=== PATIENT | female | born 1960 | race Caucasian/White ===

== ENCOUNTER 2023-02-15 01:27 | Emergency (ER) | payer MEDICARE, SELFPAY ==
[2023-02-15] VITALS (13 sets, daily range): BP systolic 105–129; BP diastolic 52–90; PULSE 50–57; RESP 16–18; TEMP 36.2; O2SAT 95–98; BMI 26.8
--- NOTE | 2023-02-15 01:43 | ED_ITS ---
HPI - Arrhythmia/Palpitations General Time Seen by Provider: 01:43 Date Seen: 02/15/23 Chief Complaint: Arrhythmia/Palpitations Stated Complaint: Heart is beating fast and hard. Time Seen by Provider: 02/15/23 01:42 Source: patient, RN notes reviewed and old records reviewed Mode of arrival: ambulatory Limitations: no limitations History of Present Illness HPI narrative: 63-year-old female with history of COPD, coronary disease with stents and prior bypass who presents today with feeling like her heart is beating hard. She has had nausea decreased oral intake for the last week or so, tonight feels like her heart is beating hard with little bit of accompanying lightheadedness. She denies chest pain or shortness of breath. Denies vomiting or diarrhea. Notes her lisinopril was decreased recently. Related Data Home Medications Medication Instructions Recorded Confirmed alendronate 70 mg tablet 70 mg PO QWEEK 02/15/23 02/15/23 aspirin 81 mg tablet,delayed 81 mg PO DAILY 02/15/23 02/15/23 release (Adult Aspirin Regimen) atorvastatin 40 mg tablet 40 mg PO DAILY 02/15/23 02/15/23 bupropion HCl 150 mg 24 hr tablet, 150 mg PO DAILY 02/15/23 02/15/23 extended release clonazepam 1 mg tablet 1 mg PO DAILY 02/15/23 02/15/23 lisinopril 2.5 mg tablet 2.5 mg PO DAILY 02/15/23 02/15/23 magnesium oxide-magnesium amino cap PO 02/15/23 acid chelate 300 mg capsule (Magnesium (oxide/AA chelate)) metoprolol succinate 25 mg 25 mg PO DAILY 02/15/23 02/15/23 tablet,extended release 24 hr mirtazapine 45 mg tablet 45 mg PO DAILY 02/15/23 02/15/23 psyllium (Hydrocil Instant oral 1 packet PO DAILY 02/15/23 02/15/23 packet) quetiapine 50 mg tablet 50 mg PO DAILY 02/15/23 02/15/23 ticagrelor 90 mg tablet (Brilinta) 90 mg PO Q12H 02/15/23 02/15/23 ziprasidone HCl 40 mg capsule 40 mg PO BID 02/15/23 02/15/23 (Geodon) Allergies Allergy/AdvReac Type Severity Reaction Status Date / Time Cjdexhr-IGH-AhA Reductase Allergy Verified 02/15/23 02:16 Inhibitor oxycarbazine Allergy Uncoded 02/15/23 02:16 PFSH PFSH Social History Smoking Status: Never smoker Do you use any of these nicotine containing products: None How often do you have a drink containing alcohol: never AUDIT-C Alcohol total score: 0 Non-prescribed substance use: denies use Exam Narrative: Exam Narrative: General: Well-developed and well-nourished, no acute distress Head: Atraumatic and normocephalic Eyes: Pupils are equal reactive, extraocular motions intact, conjunctiva clear ENT: External nose and ears are normal, posterior pharynx without erythema or exudate Neck: No midline cervical tenderness, full spontaneous range of motion the neck, trachea midline, no adenopathy Heart: Regular rate and rhythm no murmurs or thrills Lungs: Clear to auscultation bilaterally without wheezes or crackles Abdomen: Soft, nontender, nondistended with active bowel sounds Musculoskeletal: No tenderness, deformity, or edema Neurologic: Awake, alert, and oriented x3, no gross focal neurologic deficits, cranial nerves intact as tested Psych: Mood and affect are appropriate Skin: No rashes Const: Vital Signs, click to edit/add: Vital Signs - 24 hr 02/15/23 01:34 02/15/23 02:16 02/15/23 02:32 Temperature 97.1 F L Pulse Rate 54 L 55 L Pulse Rate [Pulse Oximeter] 55 L Respiratory Rate 18 16 16 Blood Pressure 111/61 112/64 Blood Pressure [Le ft Upper Arm] 126/90 H Pulse Oximetry 96 97 95 Oxygen Delivery Me thod Room Air 02/15/23 02:47 02/15/23 03:02 02/15/23 03:17 Temperature Pulse Rate 57 L 51 L 51 L Pulse Rate [Pulse Oximeter] Respiratory Rate 18 18 16 Blood Pressure 120/63 105/52 L 118/70 Blood Pressure [Le ft Upper Arm] Pulse Oximetry 95 96 95 Oxygen Delivery Me thod 02/15/23 03:32 02/15/23 03:47 02/15/23 04:01 Temperature Pulse Rate 54 L 51 L 50 L Pulse Rate [Pulse Oximeter] Respiratory Rate 16 16 16 Blood Pressure 121/64 122/60 124/61 Blood Pressure [Le ft Upper Arm] Pulse Oximetry 98 98 96 Oxygen Delivery Me thod 02/15/23 04:17 02/15/23 04:32 Temperature Pulse Rate 51 L 52 L Pulse Rate [Pulse Oximeter] Respiratory Rate 16 16 Blood Pressure 125/69 128/60 Blood Pressure [Le ft Upper Arm] Pulse Oximetry 96 96 Oxygen Delivery Me thod Course Course ED Course: Patient seen examined, prior records reviewed. Patient presents today with cessation of heart being hard. On exam here, vital a stable with heart rate in the 50s. EKG with diffuse ST changes, no acute ischemic changes and no prior. Labs and fluids are ordered. Reevaluation(s) Time of Reevaluation #1: 02:43 Reevaluation #1: Chest x-ray independently interpreted by me negative for acute findings. Time of Reevaluation #2: 04:28 Reevaluation #2: Labs independently interpreted by me with normal CBC, reassuring basic panel, negative BNP. Troponin is pending. If this is normal, patient can be discharged with outpatient follow-up. Consider decreasing metoprolol as patient is little bradycardic and this may be causing her sensation of her heart beating hard. Vital Signs Vital signs: Initial Vital Signs Temperature 97.1 F L 02/15/23 01:34 Temperature Source Temporal Artery Scan 02/15/23 01:34 Pulse Rate 55 L 02/15/23 01:34 Respiratory Rate 18 02/15/23 01:34 Blood Pressure 126/90 H 02/15/23 01:34 Blood Pressure Mean 102 02/15/23 01:34 Blood Pressure Position Supine 02/15/23 01:34 Pulse Oximetry 96 02/15/23 01:34 Oxygen Delivery Method Room Air 02/15/23 01:34 Vital Signs Temperature 97.1 F L 02/15/23 01:34 Pulse Rate 55 L 02/15/23 01:34 Respiratory Rate 18 02/15/23 01:34 Blood Pressure 126/90 H 02/15/23 01:34 Pulse Oximetry 96 02/15/23 01:34 Oxygen Delivery Method Room Air 02/15/23 01:34 Temperature 97.1 F L 02/15/23 01:34 Pulse Rate 52 L 02/15/23 04:32 Respiratory Rate 16 02/15/23 04:32 Blood Pressure 128/60 02/15/23 04:32 Pulse Oximetry 96 02/15/23 04:32 Oxygen Delivery Method Room Air 02/15/23 01:34 MDM - Arrhythmia/Palpitations Lab Data Labs: Lab Results 02/15/23 Range/Units 03:06 WBC 8.53 (4.50-11.00) K/uL RBC 4.64 (4.00-5.20) m/uL Hgb 13.3 (12.0-16.0) gm/dL Hct 42.1 (33.0-51.0) % MCV 91 (80-100) fL MCH 29 (26-34) pg MCHC 32 (32-36) gm/dL RDW Coeff of Jerome 14.5 (11.5-15.5) % Plt Count 305 (140-440) K/uL Neut % (Auto) 63.2 (42.0-72.0) % Lymph % (Auto) 25.6 (20-44) % Rowan % (Auto) 9.3 (0.0-11.0) % Eos % (Auto) 1.5 (0.0-7.0) % Baso % (Auto) 0.2 (0.0-3.0) % Neut # (Auto) 5.39 (1.7-7.0) K/uL Lymph # (Auto) 2.18 (0.90-2.90) K/uL Rowan # (Auto) 0.80 (0.00-0.90) K/UL Eos # (Auto) 0.13 (0.00-0.50) K/uL Baso # (Auto) 0.02 (0.00-0.30) K/uL Abs Immat Gran (auto) 0.02 (0.00-0.30) K/uL Imm/Tot Granulo (auto) 0.2 % Sodium 140 (135-149) mmol/L Potassium 4.1 (3.6-5.1) mmol/L Chloride 104 (96-114) mmol/L Carbon Dioxide 24 (20-32) mmol/L Anion Gap 12 (7-15) mEq/L BUN 18 (7-30) mg/dL Creatinine 1.2 (0.5-1.5) mg/dL Estimated Creat Clear 44.92 Estimated GFR 51 ml/min Glucose 96 (60-115) mg/dL Calcium 9.2 (8.4-10.6) mg/dL Magnesium 2.6 (1.5-2.6) mg/dL Troponin I < 0.01 L (0.01-0.04) ng/mL NT-Pro-B Natriuret Pep 522 pg/mL ECG Data Attestation: I personally reviewed and interpreted this ECG as follows: ECG interpretation date: 02/15/23 ECG interpretation time: 01:59 Prior ECG tracings: not available for review Interpretation: Performed at 1:40 a.m. demonstrates sinus rhythm rate 55, ST depression in II, AVF with T-wave inversions and slight depressions in V3 through V6, QTC 411. No prior for comparison. Discharge Plan Discharge Clinical Impression: Palpitations, Nausea Patient Disposition: Home, Self-Care Condition: Stable Instructions: Heart Palpitations (DC) Activity Level: Activity as Tolerated Discharge Diet: Regular Prescriptions: No Action lisinopril 2.5 mg tablet 2.5 mg PO DAILY atorvastatin 40 mg tablet 40 mg PO DAILY alendronate 70 mg tablet 70 mg PO QWEEK aspirin [Adult Aspirin Regimen] 81 mg tablet,delayed release (DR/EC) 81 mg PO DAILY Magnesium (oxide/AA chelate) 300 mg capsule PO metoprolol succinate 25 mg tablet extended release 24 hr 25 mg PO DAILY bupropion HCl 150 mg tablet extended release 24 hr 150 mg PO DAILY clonazepam 1 mg tablet 1 mg PO DAILY mirtazapine 45 mg tablet 45 mg PO DAILY quetiapine 50 mg tablet 50 mg PO DAILY ziprasidone HCl [Geodon] 40 mg capsule 40 mg PO BID Rx Instructions: give with food (meal/snack) Brilinta 90 mg tablet 90 mg PO Q12H Hydrocil Instant Packet 1 packet PO DAILY Rx Instructions: mix into at least 8 oz of water or juice before administering Follow Up/Referrals: Provider,Not a Local [Primary Care Provider] - Stand Alone Forms: [employer] Info Instructions
--- NOTE | 2023-02-15 01:55 | CRLHL7_ITS ---
For Patients: As a result of the Cures Act, medical imaging exams and procedure reports are released immediately into your electronic medical record. You may view this report before your referring provider. If you have questions, please contact your health care provider. INDICATION: Chest pain. TECHNIQUE: Chest 1 view. COMPARISON: None. FINDINGS: Heart and mediastinum: Prior CABG. No acute findings. Lungs and pleural spaces: The patient is rotated rightward. Clear lungs and pleural spaces. Bones and soft tissues: Chronic appearing contiguous fracture deformities the right 6th and 7th lateral ribs.. IMPRESSION: No acute cardiopulmonary process. Dictated by Raffaele Rodriguez MD @ 02/15/2023 4:29:03 AM (Electronically Signed)
[2023-02-15] MEDS: 0.9 % SODIUM CHLORIDE 1000 ml 1,000 ML IV (03:13)
[2023-02-15 03:33] LABS: Basophils Absolute Auto 0.02 K/uL (0.00-0.30); Basophils Percent Auto 0.2 % (0.0-3.0); Eosinophils Absolute Auto 0.13 K/uL (0.00-0.50); Eosinophils Percent Auto 1.5 % (0.0-7.0); Hematocrit 42.1 % (33.0-51.0); Hemoglobin* 13.3 gm/dL (12.0-16.0); Immature Granulocytes Abs Auto 0.02 K/uL (0.00-0.30); Immature Granulocytes Pct Auto 0.2 %; Lymphocytes Absolute Auto 2.18 K/uL (0.90-2.90); Lymphocytes Percent Auto 25.6 % (20-44); Mean Corpuscular HGB Conc 32 gm/dL (32-36); Mean Corpuscular Hemoglobin 29 pg (26-34); Mean Corpuscular Volume 91 fL (80-100); Monocytes Percent Auto 9.3 % (0.0-11.0); Neutrophils Absolute Auto 5.39 K/uL (1.7-7.0); Neutrophils Percent Auto 63.2 % (42.0-72.0); Platelet Count* 305 K/uL (140-440); RDW Coefficient of Variation % 14.5 % (11.5-15.5); Red Blood Count 4.64 m/uL (4.00-5.20); White Blood Count* 8.53 K/uL (4.50-11.00)
[2023-02-15 03:36] LABS: Slide Review Reflex No
[2023-02-15 03:51] LABS: Chloride* 104 mmol/L (96-114); Potassium* 4.1 mmol/L (3.6-5.1); Sodium* 140 mmol/L (135-149)
[2023-02-15 03:54] LABS: Anion Gap 12 mEq/L (7-15); Carbon Dioxide* 24 mmol/L (20-32); Creatinine* 1.2 mg/dL (0.5-1.5); Est. Creatinine Clearance* 44.92; Estimated Glomerular Filt Rate 51 ml/min
[2023-02-15 03:55] LABS: Blood Urea Nitrogen* 18 mg/dL (7-30); Calcium* 9.2 mg/dL (8.4-10.6); Glucose* 96 mg/dL (60-115); Magnesium* 2.6 mg/dL (1.5-2.6)
[2023-02-15 04:05] LABS: NT Pro B Type NatriureticPept* 522 pg/mL
[2023-02-15 04:42] LABS: Troponin I* < 0.01 ng/mL (0.01-0.04)
[2023-02-15 05:15] LABS: Appearance Urine Clear (Clear); Bilirubin Urine Negative (Negative); Blood Urine Trace-intact (Negative); Color Urine Yellow (Yellow); Glucose Urine Negative (Negative); Ketones Urine Trace (Negative); Leukocyte Esterase Urine 1+ (Negative); Nitrite Urine Positive (Negative); Protein Urine Negative (Negative); Urobilinogen Urine 0.2 (0.2-1.0)
[2023-02-15 05:40] LABS: Bacteria Urine Many; Squamous Epithelial Cell Urine Few (None-Few)
== END 2023-02-15 05:43 | disposition home or self-care (01) ==
PROVIDERS: Emergency Provider Family Medicine
DX: R00.2 Palpitations (principal); R11.0 Nausea
CPT/HCPCS: 36415; 71045; 80048; 81001; 83735; 83880; 84484; 85025; 87086; 87186; 93005; 99284; J7030

== ENCOUNTER 2023-11-07 11:16 | Outpatient (CLI) | payer MEDICARE, SELFPAY | END 2023-11-07 11:17 | disposition home or self-care (01) | LOC: NFLDUCREF 11:18 | PROVIDERS: Visit Provider Nurse Practitioner | DX: R79.89 Other specified abnormal findings of blood chemistry (principal) | CPT/HCPCS: 84484 ==

== ENCOUNTER 2024-02-12 14:00 | Outpatient (RCR) | payer MEDICARE, SELFPAY | END 2024-06-11 23:59 | disposition home or self-care (01) | PROVIDERS: Visit Provider Physician Assistant | DX: R25.2 Cramp and spasm (principal); Z51.89 Encounter for other specified aftercare | CPT/HCPCS: 97110; 97140; 97162 ==

== ENCOUNTER 2024-03-17 00:19 | Emergency (ER) | payer MEDICARE, SELFPAY ==
[2024-03-17 00:25] VITALS: BP 145/93; PULSE 77; RESP 18; TEMP 36.7; O2SAT 96
--- NOTE | 2024-03-17 00:37 | CRLHL7_ITS ---
For Patients: As a result of the Cures Act, medical imaging exams and procedure reports are released immediately into your electronic medical record. You may view this report before your referring provider. If you have questions, please contact your health care provider. INDICATION: Chest pain, history coronary artery disease TECHNIQUE: Chest radiograph 2 views COMPARISON: 02/15/2023 FINDINGS: Mediastinum: Previous median sternotomy and coronary artery bypass grafting (CABG) noted. The heart silhouette is normal in size and morphology. Lung: Both lungs are unremarkable in appearance. No sign of pleural effusion seen. No pneumothorax is identified. Bone and Soft tissue: Unremarkable for age. IMPRESSION: 1. No acute cardiopulmonary disease is seen. Dictated by Alonzo Ramos MD @ 03/17/2024 12:55:25 AM Dictated by: Alonzo Ramos MD @ 03/17/2024 00:55:31 (Electronically Signed)
--- NOTE | 2024-03-17 00:39 | ED.GENADULT ---
HPI - General Adult General Chief complaint: Chest Pain Stated complaint: chest pain/lightheaded/dizzy Time Seen by Provider: 03/17/24 00:27 Source: patient Mode of arrival: ambulatory Limitations: no limitations History of Present Illness HPI narrative: 64-year-old female presents the emergency department for evaluation of chest pain that started a little over an hour prior to arrival. Initially started in the far lateral chest and then started radiating more centrally. Accompanied by feeling of dizziness and slight shortness of breath. She tried taking some nitroglycerin but it did not help. It comes and pulsating waves that last a few seconds at a time. She is also prone to heartburn and anxiety. Last ED visit for similar complaints was this summer. Symptoms thought to be secondary to GERD at that time. She does have a history of coronary artery disease including prior stent placement. Sounds as though she takes Plavix and not the Brilinta that is listed. She is not on statin therapy due to intolerance. No recent fevers but has had mild URI symptoms. Did not try any GI medicines prior to coming to ED. Does admit to some heartburn lately. No nausea or vomiting. Appetite has been normal. No fall or recent injury. No productive cough. Symptoms at rest, no anginal-type symptoms recently. No recent changes in her medications or missed doses per her report. Past medical history notable for significant PTSD and mental health issues. She also does have coronary artery disease. She is a nonsmoker. Medications reviewed. She is anticoagulated on apixaban and reports that she also uses Plavix, beta-jonnathan. Mental health medications unchanged. ROS is notable for the mild URI symptoms and chest symptoms as described above. Otherwise denies times 12 systems. Related Data Home Medications ?Medication ?Instructions ?Recorded ?Confirmed alendronate 70 mg tablet 70 mg PO QWEEK 02/15/23 03/17/24 aspirin 81 mg tablet,delayed 81 mg PO DAILY 02/15/23 03/17/24 release (Adult Aspirin Regimen) atorvastatin 40 mg tablet 80 mg PO DAILY 02/15/23 03/17/24 clonazepam 1 mg tablet 1 mg PO DAILY PRN 02/15/23 03/17/24 lisinopril 2.5 mg tablet 2.5 mg PO DAILY 02/15/23 03/17/24 magnesium oxide-magnesium amino 1 cap PO DAILY 02/15/23 03/17/24 acid chelate 300 mg capsule (Magnesium (oxide/AA chelate)) metoprolol succinate 25 mg 12.5 mg PO DAILY 02/15/23 03/17/24 tablet,extended release 24 hr mirtazapine 45 mg tablet 45 mg PO DAILY 02/15/23 03/17/24 quetiapine 50 mg tablet 50 mg PO HS PRN 02/15/23 03/17/24 atorvastatin 80 mg tablet 80 mg PO DAILY 03/17/24 03/17/24 clopidogrel 75 mg tablet 75 mg PO DAILY 03/17/24 03/17/24 evolocumab 140 mg/mL subcutaneous 140 mg subcut Q2W 03/17/24 03/17/24 pen injector (Cosme Mandel) fluticasone fur. 100 mcg-umeclid 1 ea inhalation DAILY 03/17/24 03/17/24 62.5 mcg-vilant 25 mcg inhalat.powder (Trelegy Ellipta) omeprazole 40 mg capsule,delayed 40 mg PO DAILY 03/17/24 03/17/24 release ziprasidone HCl 40 mg capsule mg PO 03/17/24 Previous Rx's ?Medication ?Instructions ?Recorded albuterol sulfate 90 mcg/actuation 2 puff inhalation Q6H PRN 05/22/23 aerosol inhaler shortness of breath or wheezing #6.7 grams Allergies Allergy/AdvReac Type Severity Reaction Status Date / Time [id number] Reductase Allergy Verified 11/07/23 10:56 Inhibitor oxycarbazine Allergy Uncoded 11/07/23 10:56 [facility] Medical History CAD (coronary artery disease) ?I25.10 - Atherosclerotic heart disease of [place] coronary artery without angina pectoris (ICD-10) Anemia ?D64.9 - Anemia, unspecified (ICD-10) COPD (chronic obstructive pulmonary disease) ?J44.9 - Chronic obstructive pulmonary disease, unspecified (ICD-10) Stroke ?I63.9 - Cerebral infarction, unspecified (ICD-10) Depression ?F32.A - Depression, unspecified (ICD-10) Pulmonary emphysema ?J43.9 - Emphysema, unspecified (ICD-10) Hyperlipidemia ?E78.5 - Hyperlipidemia, unspecified (ICD-10) OCD (obsessive compulsive disorder) ?F42.9 - Obsessive-compulsive disorder, unspecified (ICD-10) PTSD (post-traumatic stress disorder) ?F43.10 - Post-traumatic stress disorder, unspecified (ICD-10) Anxiety ?F41.9 - Anxiety disorder, unspecified (ICD-10) Stage 3 chronic kidney disease ?N18.30 - Chronic kidney disease, stage 3 unspecified (ICD-10) Schizoaffective disorder ?F25.9 - Schizoaffective disorder, unspecified (ICD-10) Surgical History S/P triple vessel bypass ?Z95.1 - Presence of aortocoronary bypass graft (ICD-10) H/O heart artery stent ?Z95.5 - Presence of coronary angioplasty implant and graft (ICD-10) History of cardiac catheterization ?Z98.890 - Other specified postprocedural states (ICD-10) Social History Smoking Status: Never smoker Do you use any of these nicotine containing products: None How often do you have a drink containing alcohol: never AUDIT-C Alcohol total score: 0 Non-prescribed substance use: denies use Exam Const: Vital Signs, click to edit/add: Vital Signs - 24 hr 03/17/24 00:25 03/17/24 00:44 Temperature 98.1 F 98.1 F Pulse Rate [Pulse Oximeter] 77 Respiratory Rate 18 Blood Pressure [Ri ght Upper Arm] 145/93 H Pulse Oximetry 96 Oxygen Delivery Me thod Room Air Documenting provider has reviewed patient's vital signs: yes Common normals: alert Other: Anxious but good historian. Makes normal eye contact. HENMT: Common normals: normocephalic, moist oral mucous membranes and oropharynx normal Head and scalp: normocephalic Eye: Common normals: conjunctivae normal General eye: normal appearance of both eyes Conjunctiva: conjunctiva(e) normal Neck & C-Spine: Common normals: full ROM and no lymphadenopathy Chest: Common normals: inspection of chest normal and palpation of chest normal Resp: Common normals: normal respiratory effort, no use of accessory muscles and clear to auscultation bilaterally Effort & inspection: able to speak in complete sentences Auscultation: clear to auscultation bilaterally Cardio: Common normals: regular rate, regular rhythm, S1 normal heart sound, S2 normal heart sound and no murmurs Rate: regular rate Rhythm: regular rhythm Heart sounds: S1 normal and S2 normal GI: Common normals: Normal to inspection, nondistended, normoactive bowel sounds present, soft to palpation, non-tender, no hepatosplenomegaly and no masses Palpation: soft and no hepatosplenomegaly Extremity: Common normals: normal to inspection and no pedal edema Neuro: Sensorium/orientation: alert Cranial nerves: CN normal except as noted Speech: speech normal Motor exam: strength 5/5 throughout, no tremor noted and no movement abnormalities noted Psych: Appearance: grossly normal Attitude: engaged Activity/motor behavior: appropriate eye contact Mood and affect: anxious Memory/cognition: memory grossly intact Insight: insight good Judgement: judgment good Skin: Common normals: no rashes or lesions noted General skin exam: no rashes or lesions noted Course Course ED Course: 64-year-old female with history of coronary artery disease, not on statin therapy presenting with episode of chest pain, not relieved by nitroglycerin at home. Differential diagnosis including acute coronary syndrome, arrhythmia, pulmonary embolism (though unlikely due to anticoagulation), GERD, anxiety, musculoskeletal chest pain, neuralgia, pleurisy, pneumonia, amongst others. Patient has already taken her anticoagulation and Plavix tonight, will not repeat. Will obtain EKG, chest x-ray, troponin and 2 hour repeat troponin, typical cardiac labs. Will try Tylenol, famotidine and Maalox to see if this improves her symptoms. If so it may give us some insight that this is GI related. Await findings. Maintained on monitor technician in the interim. Reevaluation(s) Time of Reevaluation #1: 02:59 Reevaluation #1: Counseled patient on lab findings. She is asymptomatic. She does feel like the stomach acid medicine probably helped. Labs do not show any cardiac abnormality, monitoring has not revealed any signs of arrhythmia or other abnormality. Chest pain could be for a number of sources but she did respond to the GI medication given here in the ED. at this time, I would like to discharge her home. She will continue on her anticoagulation, anti-platelet agents come beta-jonnathan and all other therapy for her coronary artery disease. Counseled that in the future I do still want her trying her nitroglycerin for these episodes. It is okay to try stomach acid medicines if no response from nitroglycerin. Any severe symptoms should always come to the emergency department. She verbalizes understanding and agreement. Written instructions provided. Alarm symptoms reviewed. Vital Signs Vital signs: Initial Vital Signs Temperature 98.1 F 03/17/24 00:25 Temperature Source Temporal Artery Scan 03/17/24 00:25 Pulse Rate 77 03/17/24 00:25 Respiratory Rate 18 03/17/24 00:25 Blood Pressure 145/93 H 03/17/24 00:25 Blood Pressure Mean 110 H 03/17/24 00:25 Blood Pressure Position Sitting 03/17/24 00:25 Pulse Oximetry 96 03/17/24 00:25 Oxygen Delivery Method Room Air 03/17/24 00:25 Vital Signs Temperature 98.1 F 03/17/24 00:25 Pulse Rate 77 03/17/24 00:25 Respiratory Rate 18 03/17/24 00:25 Blood Pressure 145/93 H 03/17/24 00:25 Pulse Oximetry 96 03/17/24 00:25 Oxygen Delivery Method Room Air 03/17/24 00:25 Temperature 98.1 F 03/17/24 00:44 Pulse Rate 77 03/17/24 00:25 Respiratory Rate 18 03/17/24 00:25 Blood Pressure 145/93 H 03/17/24 00:25 Pulse Oximetry 96 03/17/24 00:25 Oxygen Delivery Method Room Air 03/17/24 00:25 Medications Administered Medications: Discontinued Medications Generic Name Dose Route Start Last Admin Trade Name Gisela PRN Reason Stop Dose Admin Acetaminophen 1,000 mg 03/17/24 00:37 03/17/24 00:44 Acetaminophen 500 Mg Tablet PO 03/17/24 00:38 1,000 mg ONCE ONE Administration Famotidine 20 mg 03/17/24 00:37 03/17/24 00:44 Famotidine 20 Mg Tablet PO 03/17/24 00:38 20 mg ONCE ONE Administration Lidocaine/Aluminum/Magnesium/Simeth 15 ml 03/17/24 00:37 03/17/24 00:44 Mag Hydrox/Aluminum Hyd/Simeth 30 Ml Oral.Susp PO 03/17/24 00:38 15 ml ONCE ONE Administration Medical Decision Making Lab Data Lab results reviewed: Yes I reviewed the patient's lab results Lab results narrative: Labs all reassuring. Repeat troponin negative as well. Labs: Lab Results 03/17/24 03/17/24 03/17/24 Range/Units 00:43 00:44 02:43 WBC 9.75 (4.50-11.00) K/uL RBC 4.06 (4.00-5.20) m/uL Hgb 12.2 (12.0-16.0) gm/dL Hct 38.0 (33.0-51.0) % MCV 94 (80-100) fL MCH 30 (26-34) pg MCHC 32 (32-36) gm/dL RDW Coeff of [place] 13.8 (11.5-15.5) % Plt Count 236 (140-440) K/uL Neut % (Auto) 62.8 (42.0-72.0) % Lymph % (Auto) 25.0 (20-44) % [place] % (Auto) 8.4 (0.0-11.0) % Eos % (Auto) 2.6 (0.0-7.0) % Baso % (Auto) 0.5 (0.0-3.0) % Neut # (Auto) 6.12 (1.7-7.0) K/uL Lymph # (Auto) 2.44 (0.90-2.90) K/uL [place] # (Auto) 0.80 (0.00-0.90) K/UL Eos # (Auto) 0.25 (0.00-0.50) K/uL Baso # (Auto) 0.05 (0.00-0.30) K/uL Abs Immat Gran (auto) 0.07 (0.00-0.30) K/uL Imm/Tot Granulo (auto) 0.7 % Sodium 136 (135-149) mmol/L Potassium 3.9 (3.6-5.1) mmol/L Chloride 102 (96-114) mmol/L Carbon Dioxide 25 (20-32) mmol/L Anion Gap 9 (7-15) mEq/L BUN 36 H (7-30) mg/dL Creatinine 1.2 (0.5-1.5) mg/dL Estimated Creat Clear 42.62 Estimated GFR 51 ml/min Glucose 97 (60-115) mg/dL Calcium 8.6 (8.4-10.6) mg/dL Total Bilirubin < 0.1 L (0.1-1.5) mg/dL AST 21 (12-35) U/L ALT 21 (4-35) U/L Alkaline Phosphatase 127 (40-150) U/L C-Reactive Protein 0.7 (0.5-1.0) mg/dL NT-Pro-B Natriuret Pep 430 pg/mL Total Protein 6.4 (6.0-8.3) g/dL Albumin 4.0 (3.3-5.0) g/dL POC Troponin I 0.00 L 0.01 (0.01-0.04) ng/ml Imaging Data Chest x-ray: Attestation: I have reviewed the pertinent imaging results. My impression: Normal chest x-ray, no acute findings Radiologist's impression: IMPRESSION: 1. No acute cardiopulmonary disease is seen. Dictated by Alonzo Ramos MD @ 03/17/2024 12:55:25 AM Dictated by: Alonzo Ramos MD @ 03/17/2024 00:55:31 ECG Data Attestation: I personally reviewed and interpreted this ECG as follows: Prior ECG tracings: available for review Interpretation: Normal sinus rhythm with a rate of 73. Comparison EKG is 11/07/2023. Has some flattening of the lateral T-waves an inversion which is unchanged from previous visits. There are some slight septal changes as well consistent with previous EKG as well. Normal intervals and axis otherwise. Stable EKG. No acute ischemia Repeat EKG at 0244 showing sinus bradycardia with a rate of 57. Inverted T-waves and septal changes persist. Unchanged from 2 hours ago or November. Stable EKG Discharge Plan Discharge Clinical Impression: Chest pain Instructions: Chest Pain (DC) Additional Instructions: I am glad that everything is checking out normally today. I am also glad that your pain is improved. All the tests that we ran to look for infection, heart attack, heart failure, blood clots, other dangerous causes were normal. This is great news. Keep taking all of your medications exactly as prescribed. In the future, I do still want you trying the nitroglycerin for this type of pain to see if it helps. As discussed, if it does not work within 5-10 minutes, it is okay to try a stomach medication as well. In the ED, we used a combination of Tylenol, Maalox and famotidine. These are all safe to try again at home and are available [id number]. Those may take up to 30 minutes to work. If you have severe pain accompanied by shortness of breath, dizziness or is much stronger, you should always come to the emergency department. Activity Level: No Restrictions Discharge Diet: Regular Prescriptions: No Action albuterol sulfate 90 mcg/actuation HFA aerosol inhaler 2 puff inhalation Q6H PRN (Reason: shortness of breath or wheezing) Qty: 6.7 0RF lisinopril 2.5 mg tablet 2.5 mg PO DAILY atorvastatin 40 mg tablet 80 mg PO DAILY alendronate 70 mg tablet 70 mg PO QWEEK aspirin [Adult Aspirin Regimen] 81 mg tablet,delayed release (DR/EC) 81 mg PO DAILY Magnesium (oxide/AA chelate) 300 mg capsule 1 cap PO DAILY metoprolol succinate 25 mg tablet extended release 24 hr 12.5 mg PO DAILY clonazepam 1 mg tablet 1 mg PO DAILY PRN mirtazapine 45 mg tablet 45 mg PO DAILY quetiapine 50 mg tablet 50 mg PO HS PRN atorvastatin 80 mg tablet 80 mg PO DAILY clopidogrel 75 mg tablet 75 mg PO DAILY omeprazole 40 mg capsule,delayed release(DR/EC) 40 mg PO DAILY ziprasidone HCl 40 mg capsule PO Repatha SureClick 140 mg/mL pen injector 140 mg subcut Q2W Trelegy Ellipta 100-62.5-25 mcg blister with device 1 ea INHALATION DAILY Follow Up/Referrals: Provider,Not a Local [Primary Care Provider] - Stand Alone Forms: DS [employer] Info Instructions
[2024-03-17 00:44] VITALS: TEMP 36.7
[2024-03-17] MEDS: FAMOTIDINE 20 MG TABLET PO (00:44)
[2024-03-17] MEDS: ACETAMINOPHEN 500 MG TABLET 1000 MG PO (00:44)
[2024-03-17] MEDS: MAG HYDROX/ALUMINUM HYD/SIMETH 30 ML ORAL.SUSP 15 ML PO (00:44)
[2024-03-17 00:51] LABS: Basophils Absolute Auto 0.05 K/uL (0.00-0.30); Basophils Percent Auto 0.5 % (0.0-3.0); Eosinophils Absolute Auto 0.25 K/uL (0.00-0.50); Eosinophils Percent Auto 2.6 % (0.0-7.0); Hemoglobin* 12.2 gm/dL (12.0-16.0); Immature Granulocytes Abs Auto 0.07 K/uL (0.00-0.30); Immature Granulocytes Pct Auto 0.7 %; Lymphocytes Absolute Auto 2.44 K/uL (0.90-2.90); Mean Corpuscular HGB Conc 32 gm/dL (32-36); Mean Corpuscular Hemoglobin 30 pg (26-34); Mean Corpuscular Volume 94 fL (80-100); Monocytes Percent Auto 8.4 % (0.0-11.0); Neutrophils Absolute Auto 6.12 K/uL (1.7-7.0); Neutrophils Percent Auto 62.8 % (42.0-72.0); Platelet Count* 236 K/uL (140-440); RDW Coefficient of Variation % 13.8 % (11.5-15.5); Red Blood Count 4.06 m/uL (4.00-5.20); White Blood Count* 9.75 K/uL (4.50-11.00)
[2024-03-17 01:00] VITALS: BP 122/78; PULSE 66; RESP 16; TEMP 36.7; O2SAT 96
[2024-03-17 01:05] LABS: Slide Review Reflex No
[2024-03-17 01:06] LABS: Chloride* 102 mmol/L (96-114)
[2024-03-17 01:07] LABS: Potassium* 3.9 mmol/L (3.6-5.1); Sodium* 136 mmol/L (135-149)
[2024-03-17 01:09] LABS: Creatinine* 1.2 mg/dL (0.5-1.5); Est. Creatinine Clearance* 42.62; Estimated Glomerular Filt Rate 51 ml/min
[2024-03-17 01:10] LABS: Alanine Aminotransferase* 21 U/L (4-35); Alkaline Phosphatase* 127 U/L (40-150); Anion Gap 9 mEq/L (7-15); Aspartate Amino Transferase* 21 U/L (12-35); Blood Urea Nitrogen* 36 mg/dL (7-30); Calcium* 8.6 mg/dL (8.4-10.6); Carbon Dioxide* 25 mmol/L (20-32); Glucose* 97 mg/dL (60-115); Total Protein* 6.4 g/dL (6.0-8.3)
[2024-03-17 01:13] LABS: C Reactive Protein* 0.7 mg/dL (0.5-1.0)
[2024-03-17 01:14] LABS: Bilirubin Total* < 0.1 mg/dL (0.1-1.5)
[2024-03-17 01:20] LABS: NT Pro B Type NatriureticPept* 430 pg/mL
[2024-03-17 02:00] VITALS: BP 107/63; PULSE 70; RESP 16; O2SAT 94
[2024-03-17 02:52] LABS: Troponin, Point-of-Care* 0.01 ng/ml (0.01-0.04)
[2024-03-17 03:00] VITALS: BP 108/60; PULSE 64; RESP 16; O2SAT 95
== END 2024-03-17 03:05 | disposition home or self-care (01) ==
PROVIDERS: Emergency Provider Family Medicine
DX: R07.9 Chest pain, unspecified (principal)
CPT/HCPCS: 36415; 71046; 80053; 83880; 84484; 85025; 86140; 93005; 99284; 99285; A9270

== ENCOUNTER 2024-05-20 13:52 | Outpatient (CLI) | payer MEDICARE, SELFPAY | END 2024-05-20 13:53 | disposition home or self-care (01) | LOC: NFLDREF 05-23 05:49 | PROVIDERS: Visit Provider Physician Assistant | DX: R30.0 Dysuria (principal) | CPT/HCPCS: 87086 ==

== ENCOUNTER 2025-04-30 22:19 | Outpatient (CLI) | payer MEDICARE, SELFPAY | END 2025-04-30 22:20 | disposition home or self-care (01) | LOC: AMB 05-05 17:01 | PROVIDERS: Visit Provider Family Medicine | DX: R07.89 Other chest pain (principal) | CPT/HCPCS: A0425; A0429 ==

== ENCOUNTER 2025-04-30 22:53 | Emergency (ER) | payer MEDICARE, SELFPAY ==
--- OUTSIDE RECORDS SUMMARY | 2025-03-17 10:00 | XMS_ITS | Encounter Summary ---
Author Organization [facility] Address [address] [place] [address] Care Team Providers Care Material Man Name Role Phone Digna Vega NINA DIE CASTING MACHINE MAINTAINER Unavailable Joseluis Carrillo MD Unavailable Zeynep Richmond DIGESTER Unavailable Reina Gonzalez MD Unavailable Fan MullinsC Unavailable [phone] Portia Ventura PROTECTIVE CLOTHING ISSUER DIE CASTING MACHINE MAINTAINER Unavailable Reina Gonzalez MD Primary Care Provider Zeynep Richmond DIGESTER Unavailable Denae Gomez DPM, Podiatry /Foot and Ankle Surgery Unavailable Sky Lynne PA-C Unavailable [phone] Yudi Manuel PA-C Unavailable Domo Hammonds MD Unavailable Funmilayo Ferrara APRN DIE CASTING MACHINE MAINTAINER Unavailable Kei Rodas MD Unavailable Lili Michael MD Unavailable Fan Mullins PA-C Unavailable [phone] Encounter Details DateTypeDepartmentCare Team (Latest Contact Info)Fnlyyjdusun12/14/2025 10:00 AM CSTVirtual Visit [facility] Mental [facility] & Addiction [address] [phone] Zeynep Richmond, [facility] [address] [place], [place] [address] Posttraumatic stress disorder (Primary Dx); Schizoaffective disorder, unspecified type (H); Obsessive-compulsive disorder, unspecified type; Eating disorder, unspecified type Social History Tobacco UseTypesPacks/DayYears UsedDateSmoking Tobacco: FfkkpsSziujrdqbn747.9 05/04/1971 - 03/30/2014OtherPassive Smoke Exposure: NeverSmokeless Tobacco: Former Comments:Patient stated- she is currently smoking E-cig daily. Alcohol UseStandard Drinks/WeekCommentsYes0 (1 standard drink = 0.6 oz pure alcohol)1 small cider every 2 weeksSocial Connection and Isolation PanelAnswer Date RecordedFrequency of Communication with Friends and FamilyNot on file 07/11/2024How often do you get together with friends or relatives?More than three times a week07/11/2024ttends Restoration ServicesNot on file07/11/2024 Active Member of Clubs or OrganizationsNot on file07/11/2024ttends Club or Organization MeetingsNot on file07/11/2024Marital StatusNot on file07/11/2024 PHQ-2AnswerDate RecordedPHQ-2 Tibyi363Finen[facility] [place] of Occupational [facility] - Occupational Stress QuestionnaireAnswerDate RecordedDo you feel stress - tense, restless, nervous, or anxious, or unable to sleep at night because your mind is troubled all the time - these days?Very much07/11/2024Exercise Vital SignAnswerDate RecordedOn average, how many days per week do you engage in moderate to strenuous exercise (like a brisk walk)?0 days07/11/2024On average, how many minutes do you engage in exercise at this level?0 min07/11/2024 Adolescent EducationAnswerDate RecordedGetting School Help NeededNot on file 01/23/2023Food InsecurityAnswerDate RecordedWithin the past 12 months, did you worry that your food would run out before you got money to buy more?No09/30/2024 Within the past 12 months, did the food you bought just not last and you didn???t have money to getmore?No09/30/2024Housing StabilityAnswerDate Recorded Do you have housing? (Housing is defined as stable permanent housing and does not include staying outside in a car, in a tent, in an abandoned building, in an overnight group home, or couch-surfing.)Yes09/30/2024re you worried about losing your housing?No09/30/2024Financial Resource StrainAnswerDate RecordedWithin the past 12 months, have you or your family members you live with been unable to get utilities (heat, electricity) when it was really needed?No09/30/2024 Transportation NeedsAnswerDate RecordedWithin the past 12 months, has lack of transportation kept you from medical appointments, getting your medicines, non- medical meetings or appointments, work, or from getting things that you need?No 09/30/2024Interpersonal SafetyAnswerDate RecordedDo you feel physically and emotionally safe where you currently live?Yes03/10/2025Within the past 12 months, have you been hit, slapped, kicked or otherwise physically hurt by someone?No03/10/2025Within the past 12 months, have you been humiliated or emotionally abused in other ways by your partner or ex-partner?No03/10/2025 CommentsNoSex and Gender InformationValueDate RecordedSex Assigned at NyvaaVgwpnr59/06/2020 7:20 AM CSTLegal SbxXinvnz27/04/2012 3:20 AM CSTGender CxmeqtxhYyfsuh32/06/2020 7:20 AM CSTSexual LzhbsbknzceMjxcppsy73/06/2020 7:20 AM CSTdocumented as of this encounter Progress Notes * Zeynep Richmond, [facility] - 03/17/2025 10:00 AM CST OUTPATIENT PSYCHOTHERAPY PROGRESS NOTE Client Name: Dinah Alegre Date of : 1960 (65 year old) Time of Service: 10:01 am to 10:19 am (18 minutes) Service Type(s): 18602 psychotherapy (16-32 min. with patient and/or family) Type of service: Telehealth Individual Psychotherapy Reason for Telemedicine Visit: severe anxiety related to driving, Reina also lives significant distance from clinic. Mode of transmission: [employer] real time [place] telecommunication system ([place]) Location of originating and distant sites: Originating site (patient location): patient home Distant site (provider site): HIPAA compliant location within provider home/remote setting Telemedicine Visit: The patient's condition can be safely assessed and treated via synchronous audio and visual telemedicine encounter. Patient has agreed to receiving services via telemedicine technology. Diagnoses: 43.10 Post Traumatic Stress Disorder F25.9 Schizoaffective Disorder, Unspecified 42.9 Obsessive-Compulsive Disorder 50.9 Eating Disorder, Unspecified Individuals Present: Reina Treatment goal(s) being addressed: -Decrease anxiety and parasympathetic responses to trauma -Continue work on trauma to gain insight into responses and decrease length/intensity of symptoms, -work towards taking a shower -Learn assertiveness skills in order to practice using my voice and not feeling scared. Subjective: Reina shared that she was experiencing on-going gastro issues. She has seen her medical provider and is waiting for follow up tests. She is experiencing difficulty with focus due to both difficulty with eating, stomach pains, and some anxiety related to her stomach concerns. She requested a very shortened session due to concerns. Treatment: -Provided reflective listening, unconditional positive regard, and validation as Reina shared current concerns and provided updates from past week. Modalities utilized in session included use of problem-solving model, psychoeducation, supportive. -Used problem solving model to identify strategies to manage anxiety about taking medications. Reina shared that she has new medications; some she needs to take on an empty stomach and other medications she needs to take with food. She is feeling anxiety at keeping track of the meds, when to take them, and when to eat vs not eat. Offered empathic listening, provided psychoeducation within scope of practice, and suggested creating a chart of when to take medications in order to decrease amount of mental energy of when to take medications each day. Reina observed this could be helpful. -Reina requested to return to weekly therapy sessions. She finds these times helpful with symptom management and does not feel ready to decrease to every other week. Med provider has also shared thatReina has reported an increase in nightmares. Therapist provided positive feedback in self-advocacyskills and agreed with plan. Reina did not share medication changes at today's session. Assessment and Progress: Reina continues to experience on-going depression and anxiety related to trauma experiences. Reina's symptoms appear to wax and wane based on environmental factors. She has skills to manage symptoms but often needs prompts and supports to utilize them. Will continue to encourage and practice independent use of skills. Reina was able to take a trip to [place] to see her son and daughter in law and reported having a really good time. She went out into areas with large crowds and engaged in many activities. Mental Status Exam Alertness: alert and oriented Appearance: appropriately groomed Behavior/Demeanor: cooperative Speech: regular rate and rhythm Language: intact Psychomotor: no concerns Mood: anxious Affect: no concerns, full range, was congruent to mood; was congruent to content and situation Thought Process/Associations: unremarkable Thought Content: Reports none; Denies none Perception: Reports none; Denies none Insight: fair Judgment: good Cognition: (6) does appear grossly intact; formal cognitive testing was not done Gait and Station: unable to assess due to video visit Plan: Homework of creating a medication chart to decrease anxiety around taking medication assigned. Nexttherapy session in 1 week to work on treatment goals. Treatment Plan review due: 05/24/2025 KADY Kumar (Patty), DIGESTER Spotter Driver Direct [facility] Psychiatry [facility], 2nd floor [address] [place] [address], [address] [place] [address] IATRIC THORACIC PHYSICIAN documented in this encounter Plan of Treatment DateTypeDepartmentCare Team (Latest Contact Info)Rcwshvycyly70/09/2026 10:00 AM CSTVirtual Visit [facility] Mental Health & Addiction [address] [place] F275 [facility] [phone] Zeynep Richmond, [address] [phone] 05/19/2025 10:[address] [facility] Health & Addiction [address] [place] F275 [facility] [phone] Zeynep Richmond, DIGESTER [address] [place] [address] [phone] 05/22/2025 10:00 AM CSTVirtual Visit [facility] & Addiction [address] [place] F275 [facility] [address] [phone] Digna Vega, PROTECTIVE CLOTHING ISSUER [address] [id number] 05/26/2025 10:00 AM CSTVirtual Visit [facility] & Addiction [address] [place] F275 [facility] [address] [phone] Zeynep Richmond, DIGESTER [address] [place] [address] 06/02/2025 10:00 AM CSTVirtual Visit [facility] & Addiction [address] [place] [address] [phone] Zeynep Richmond, DIGESTER [address] [place] [address] 06/13/2025 1:00 PM CSTOffice Visit [facility] [place] [phone] [facility] [address] [place] [phone] Reina Gonzalez MD [address] [id number] Bart De PA-C 6363 [facility] [address] [place] [address] 06/15/2025 9:00 AM CSTAppointment [facility] [address] [facility] [address] [place] [phone] Kei Rodas MD [address] [place] [phone] 06/15/2025 10:00 AM CSTAppointment [facility] [address] [facility] [address] [place] [phone] Kei Rodas MD [address] [place] [address] [phone] 06/20/2025 11:00 AM CSTOffice Visit [facility] [address] [place] [phone] Kei Rodas MD [address] [place] [address] [phone] 07/17/2025 11:30 AM CDTVirtual Visit [address] [phone] Reina Gonzalez MD [address] [address] Fan Mullins PA-C [phone] [place] [id number] 07/20/2025 11:10 AM CDTOffice Visit [facility] [address] [facility] [address] [place] [phone] Reina Gonzalez MD [address] [facility] [place] 200 [place] [address] 08/28/2025 12:00 PM CDTAncillary Procedure [facility] [address] 1st [place] [phone] Domo Hammonds MD 500 [place], [place] 6[address]15 08/28/2025 1:00 PM CDTOffice Visit [facility] [address] [phone] Domo Hammonds MD [address] [place] [address]115 09/04/2025 11:[address] [facility] [address] [place] [place] [phone] Lili Michael MD [address] [place] [address] 200 [place], [place] [phone] 09/18/2025 11:40 AM CDTOffice Visit [facility] Heart [facility] 909 [place] [phone] Melissa Townsend NP [address] [facility] 508 [place], [place] [phone] documented as of this encounter Visit Diagnoses Diagnosis Posttraumatic stress disorder- Primary Schizoaffective disorder, unspecified type (H) Obsessive-compulsive disorder, unspecified type Eating disorder, unspecified type documented in this encounter Additional Health Concerns AssessmentNoted TimePHQ-9 Depression Total Score: 131 8:44 AM CDT documented as of this encounter Care Teams Team MemberRelationshipSpecialtyStart DateEnd Reina Gonzalez MD [address] [address] PCP - GeneralFamily Vrikvtqt65/15/23 Digna Vega, PROTECTIVE CLOTHING ISSUER DIE CASTING MACHINE MAINTAINER [address] [place] [address] [phone] Nurse PractitionerNurse Practitioner Psych/Mental Health05/30/16 Joseluis Carrillo MD [address] [place] [address] [phone] MDFaarly Medicine - Sports Medicine11/13/16 Zeynep Richmond, [facility] [address] [place] [address] [phone] Social WorkerSocial Worker - Clinical06/15/20 Reina Gonzalez MD [address] [place] [address] Assigned PCP01/18/22 Fan Mullins PA-C [address] [place], [place] [address] Physician AssistantGastroenterology09/25/22 Portia Ventura, PROTECTIVE CLOTHING ISSUER DIE CASTING MACHINE MAINTAINER [address] [place] [address] Nurse PractitionerCardiology10/22/22 Zeynep Richmond, [facility] [address] [place], [place] [phone] Assigned Behavioral Health Provider08/25/23 Denae Gomez DPM, Podiatry/Foot and Ankle Surgery [address] [facility] [address] [place] [address] Assigned Musculoskeletal Provider11/24/23 Sky Lynne PA-C 6545 [facility] 450 [place], [place] 450985 Assigned Neuroscience Provider01/25/24 Yudi Manuel PA-C [address] [facility] [address] [place] [address] Physician AssistantUrology1 Domo Hammonds MD [address] [place] [address] [phone] PulmonologistPulmonary Disease07/18/24 Funmilayo Ferrara, PROTECTIVE CLOTHING ISSUER DIE CASTING MACHINE MAINTAINER [address] [place] [address] 900455 Assigned Surgical Provider09/23/24 Kei Rodas MD [address] [place] [address] [phone] Assigned Heart and Vascular Provider12/24/24 Lili Michael MD [address] [facility] [address] [place], [place] [phone] HospitalistEndocrinology, Diabetes, and Ujygwyyopz57/10/25 Fan Mullins PA-C [address] [place] [address] Physician KfzxixdskLcusqftufbgbxviu07/13/25documented as of this encounter
--- OUTSIDE RECORDS SUMMARY | 2025-04-07 10:00 | XMS_ITS | Encounter Summary ---
Author Organization [facility] Address [address] [place] [address] Care Team Providers Care Feed Weigher Name Role Phone Digna Vega NINA BOOK OR SCRIPT EDITOR Unavailable Joseluis Carrillo MD Unavailable Zeynep Richmond MECHANICAL ENGINEERING INTERN Unavailable Reina Gonzalez MD Unavailable Fan MullinsC Unavailable [phone] Portia Ventura PERSONNEL TECHNICIAN BOOK OR SCRIPT EDITOR Unavailable [phone] Reina Gonzalez MD Primary Care Provider Zeynep Richmond MECHANICAL ENGINEERING INTERN Unavailable Denae Gomez DPM, Podiatry /Foot and Ankle Surgery Unavailable Sky Lynne PA-C Unavailable [phone] Yudi Manuel PA-C Unavailable Domo Hammonds MD Unavailable Funmilayo Ferrara APRN BOOK OR SCRIPT EDITOR Unavailable Kei Rodas MD Unavailable Lili Michael MD Unavailable Fan Mullins PA-C Unavailable [phone] Domo Hammonds MD Unavailable Encounter Details DateTypeDepartmentCare Team (Latest Contact Info)Rbegoechdrx05/05/2025 10:00 AM CSTVirtual Visit [facility] [place] [phone] [phone] Zeynep Richmond, [facility] [address] [place], [place] [phone] Posttraumatic stress disorder (Primary Dx); Schizoaffective disorder, unspecified type (H); Obsessive-compulsive disorder, unspecified type; Eating disorder, unspecified type Social History Tobacco UseTypesPacks/DayYears UsedDateSmoking Tobacco: IcedfnHyueiqobhc780.9 05/04/1971 - 03/30/2014OtherPassive Smoke Exposure: NeverSmokeless Tobacco: Former Comments:Patient stated- she is currently smoking E-cig daily. Alcohol UseStandard Drinks/WeekCommentsYes0 (1 standard drink = 0.6 oz pure alcohol)1 small cider every 2 weeksSocial Connection and Isolation PanelAnswer Date RecordedFrequency of Communication with Friends and FamilyNot on file 07/11/2024How often do you get together with friends or relatives?More than three times a week07/11/2024ttends Anabaptist ServicesNot on file07/11/2024 Active Member of Clubs or OrganizationsNot on file07/11/2024ttends Club or Organization MeetingsNot on file07/11/2024Marital StatusNot on file07/11/2024 PHQ-2AnswerDate RecordedPHQ-2 Mxjrk79206/08/2024[facility] [place] [facility] - Occupational Stress QuestionnaireAnswerDate [...] out before you got money to buy more?No04/07/2025 Within the past 12 months, did the food you bought just not last and you didn???t have money to getmore?No04/07/2025Housing StabilityAnswerDate Recorded Do you have housing? (Housing is defined as stable permanent housing and does not include staying outside in a car, in a tent, in an abandoned building, in an overnight care home, or couch-surfing.)Yes04/07/2025re you worried about losing your housing?No04/07/2025Financial Resource StrainAnswerDate RecordedWithin the past 12 months, have you or your family members you live with been unable to get utilities (heat, electricity) when it was really needed?Yes04/07/2025 Transportation NeedsAnswerDate RecordedWithin the past 12 months, has lack of transportation kept you from medical appointments, getting your medicines, non- medical meetings or appointments, work, or from getting things that you need?No 04/07/2025Interpersonal SafetyAnswerDate RecordedDo you feel physically and emotionally safe where you currently live?Yes03/10/2025Within the past 12 months, have you been hit, slapped, kicked or otherwise physically hurt by someone?No03/10/2025Within the past 12 months, have you been humiliated or emotionally abused in other ways by your partner or ex-partner?No03/10/2025 CommentsNoSex and Gender InformationValueDate RecordedSex Assigned at MeikjTmhxoe31/06/2020 7:20 AM CSTLegal SftGnssbc36/04/2012 3:20 AM CSTGender MaycndeoYnoujo36/06/2020 7:20 AM CSTSexual JwvztkulymlRhxehmyj67/06/2020 7:20 AM CSTdocumented as of this encounter Progress Notes * RuthieRamon Zeynep Buenrostro, MECHANICAL ENGINEERING INTERN - 04/07/2025 10:00 AM CST OUTPATIENT PSYCHOTHERAPY PROGRESS NOTE Client Name: Dinah Alegre Date of : 1960 (65 year old) Time of Service: 10:05 am to 11:05 am (60 minutes) Service Type(s): 06150 psychotherapy (53-60 min. with patient and/or family) Type of service: Telehealth Individual Psychotherapy Reason for Telemedicine Visit: severe anxiety related to driving, Reina also lives significant distance from clinic. Mode of transmission: Secure real time StyleChat by Pro[employer] Mobile telecommunication system ([employer]) Location of originating and distant sites: Originating [...] voice and not feeling scared. Subjective: Reina shares that her nausea has decreased, which has helped with overall feelings of well-being. She continues to have some anxiety on a daily basis, but can manage it most days. Treatment: -Provided reflective listening, unconditional positive regard, and validation as Reina shared current concerns and provided updates from past week. Modalities utilized in session included DBT pros and cons, accelerated resolution therapy. -Discussed pros and cons to attending member services coordinator appt. Reina wondered if she should keep her endoscopy appointment since her symptoms are less. Therapist worked with Reina to identify pros and cons. Reina identified a worry that the doctor will feel like she is wasting their time. Therapistreinforced doctor will not feel like this or say this and encouraged her to keep and attend appointm ent. -Completed Accelerated Resolution Therapy (ART) session focused on anxiety around showering. --Utilized online program with blue dot to stimulate bilateral eye movements. Reina felt most comfortable at a speed of 4.5. She was able to visualize scene of taking a shower x 2. Utilized eye movements in between to process body sensations. Reina was able to complete a Director's Cut and identifystrategies to increase her sense of safety and comfort in taking showers. -Utilized remote control ART activity to reinforce Director's Cut of positive images. Reina was able to complete activity. -Reina reported feeling less anxiety after activity and felt like she may be able to shower soon. Reina did not share medication changes at [...] was able to take a trip to [place] to see her son and daughter in [...] to assess due to video visit Plan: No homework this session. Next therapy session in 1 week to work on treatment goals. Patient was established prior to 02/01/2025 and will need to be seen in person by this provider by 01/31/2026 Treatment Plan review due: 05/24/2025 KADY Kumar (Patty), [facility] Housekeeping Cleaner Direct [facility], 2nd floor [address], [address] [place] [address] Answers submitted by the patient for this visit: Adult Psychotherapy on 04/07/2025 10:00 AM with Zeynep Richmond Patient Health Questionnaire (Submitted on 04/07/2025) If you checked off any problems, how difficult have these problems made it for you to do your work,take care of things at home, or get along with other people?: Extremely difficult PHQ9 TOTAL SCORE: 12 Patient Health Questionnaire (G7) (Submitted on 04/07/2025) CHUCK 7 TOTAL SCORE: 12 MARKER documented in this encounter Plan of Treatment DateTypeDepartmentCare Team (Latest Contact Info)Pgjkahwmzmv43/09/2026 10:00 AM CSTVirtual Visit [facility] [address] AFSHIN F275 [facility] [phone] Zeyenp Richmond, [address] [phone] 05/19/2025 10:[address] [facility] [address] [place] F275 [facility] [address] [phone] Zeynep Richmond, [address] [phone] 05/22/2025 10:00 AM CSTVirtual Visit [facility] [address] [place] F275 [facility] [address] [phone] Digna Vega, PERSONNEL TECHNICIAN BOOK OR SCRIPT EDITOR [address] [place] [address] 05/26/2025 10:[address] [facility] [address] [place]SH[place] F275 [facility] [address] [phone] Zeynep Richmond, [facility] [address] [place] [address] 06/02/2025 10:00 AM CSTVirtual Visit [facility] [place] [phone] [phone] Zeynep Richmond, [facility] [address] [place] [address] 06/13/2025 1:00 PM CSTOffice Visit [facility] [place] [address] [facility] [address] [place] [phone] Reina Gonzalez MD 2270 [facility] 200 [place], [place] [phone] Bart De PA-C 5005 [facility] 103 [place] [address] 06/15/2025 9:00 AM CSTAppointment [facility] [address] [facility] 160 [place] [phone] Kei Rodas MD [address] [place] [address] 06/15/2025 10:00 AM CSTAppointment [facility] [address] [facility] [address] [place] [phone] Kei Rodas MD [address] [place] [address] 06/20/2025 11:00 AM CSTOffice Visit [facility] [address] 3rd [place] [phone] Kei Rodas MD 909 [place] [address] 07/17/2025 11:[address] [facility] [address] [place] [phone] Reina Gonzalez MD 2270 [facility] 200 [place] [address] Fan Mullins PA-C [address] [place] [address] 07/20/2025 11:10 AM CDTOffice Visit [facility] [address] [place] [address] 200 [place] [phone] Reina Gonzalez MD [address] [place] [address] 200 [place] [address] 08/28/2025 12:00 PM CDTAncillary Procedure [facility] [place] [address] [phone] Domo Hammonds MD [address] [place] [address] 828135 08/28/2025 1:00 PM CDTOffice Visit [facility] [address] [phone] Domo Hammonds MD [address] [place] [address] 09/04/2025 11:30 AM CDTVirtual Visit [facility] [address] [place] [phone] Lili Michael MD [address] [facility] 200 [place], [place] [address] 09/18/2025 11:40 AM CDTOffice Visit [facility] [place] [address] [facility] [place] [phone] Melissa Townsend NP [address] [facility] 508 [place], [place] [phone] documented as of this encounter Visit Diagnoses Diagnosis Posttraumatic stress disorder- Primary Schizoaffective disorder, unspecified type (H) Obsessive-compulsive disorder, unspecified type Eating disorder, unspecified type documented in this encounter Additional Health Concerns AssessmentNoted TimePHQ-9 Depression Total Score: 12106/08/2024 10:02 AM HEM MARKER documented as of this encounter Care Teams Team MemberRelationshipSpecialtyStart DateEnd Date Reina Gonzalez MD [address] [place] [address] PCP - GeneralFamily Mxtxdhep42/15/23 Digna Vega APRN BOOK OR SCRIPT EDITOR [address] [place] [address] [phone] Nurse PractitionerNurse Practitioner Psych/Mental Health05/30/16 Joseluis Carrillo MD [address] [place] [address] Family Medicine - Sports Medicine11/13/16 Zeynep Richmond, [facility] [address] [place] [address] [phone] Social WorkerSocial Worker - Clinical06/15/20 Reina Gonzalez MD [address] [place] [address] [phone] Assigned PCP01/18/22 Fan Mullins PA-C [address] [place] [address] [place] [address] Physician AssistantGastroenterology09/25/22 Portia Ventura APRN BOOK OR SCRIPT EDITOR [address] [place] [address] Nurse PractitionerCardiology10/22/[address] [facility] [address] [place], [place] 8279[address] Assigned Behavioral Health Provider08/25/23 Denae Gomez DPM, Podiatry/Foot and Ankle Surgery [address] [facility] 300 [place], [place] 8[address] Assigned Musculoskeletal Provider11/24/23 Sky Lynne PA-C 6545 [facility] 450 [place], [place] [phone] Assigned Neuroscience Provider01/25/24 Yudi Manuel PA-C [address] [facility] 377 [place], [place] [phone] Physician AssistantUrology1 Domo Hammonds MD [address] [place] [address] PulmonologistPulmonary Disease07/18/24 Funmilayo Ferrara APRN BOOK OR SCRIPT EDITOR 9 [place], [place] [phone] Assigned Surgical Provider09/23/24 Kei Rodas MD [address] [place] [address] [phone] Assigned Heart and Vascular Provider12/24/24 Lili Michael MD [address] [facility] [address] 200 [place], [place] [address] HospitalistEndocrinology, Diabetes, and Jmzmuiphba36/10/25 Fan Mullins PAJeffC [address] [place] [address] Physician GjxnjdgivTwfedsvwcgqiihla81/13/25 Domo Hammonds MD [address] [place] [address] [phone] Assigned Pulmonology Dgbwqkad34/23/25documented as of this encounter
--- OUTSIDE RECORDS SUMMARY | 2025-04-10 09:30 | XMS_ITS | Encounter Summary ---
Author Organization [facility] Address [address] [place] [id number] Care Team Providers Care Fence Gate Assembler Name Role Phone Digna Vega NINA QUICK MIXER OPERATOR Unavailable Joseluis Carrillo MD Unavailable Zeynep Richmond SPA SUPERVISOR Unavailable Reina Gonzalez MD Unavailable Fan MullinsC Unavailable [phone] Portia Ventura CREATIVE WRITING ENGLISH PROFESSOR QUICK MIXER OPERATOR Unavailable Reina Gonzalez MD Primary Care Provider Zeynep Richmond SPA SUPERVISOR Unavailable Denae Gomez DPM, Podiatry /Foot and Ankle Surgery Unavailable Sky Lynne PA-C Unavailable [phone] Yudi Manuel PA-C Unavailable Domo Hammonds MD Unavailable Funmilayo Ferrara APRN QUICK MIXER OPERATOR Unavailable Kei Rodas MD Unavailable Lili Michael MD Unavailable Fan Mullins PA-C Unavailable [phone] Domo Hammonds MD Unavailable Reason for Visit * ReasonCommentsFollow Up-nausea Encounter Details DateTypeDepartmentCare Team (Latest Contact Info)Rniptlnhiea25/08/2025 9:30 AM CSTOffice Visit [facility] [address] [place] [address] Reina Gonzalez MD [address] [place], [place] [id number] Gastroesophageal reflux disease, unspecified whether esophagitis present (Primary Dx); Heart burn; Epigastric pain; Esophageal dysphagia; Nausea; Weight loss; BMI 28.0-28.9,adult; Constipation, unspecified constipation type; Loss of teeth due to periodontal disease, unspecified edentulism class; Anorexia nervosa (H); Age related osteoporosis, unspecified pathological fracture presence; History of vertebral compression fracture; Vitamin D deficiency; Stage 3 chronic kidney disease, unspecified whether stage 3a or 3b CKD (H); Coronary artery disease involving coronary bypass graft of [place] heart with other forms of angina pectoris; Status post three vessel coronary artery bypass; Ischemic cardiomyopathy; Hyperlipidemia, unspecified hyperlipidemia type; Palpitations; PAD (peripheral artery disease); Emphysema, unspecified (H); Former smoker; History of ischemic colitis; Diverticular disease of colon; Hemorrhoids, unspecified hemorrhoid type; History of adenomatous polyp of colon; Mixed stress and urge urinary incontinence; Dystrophic nail; Seborrheic keratoses; Akathisia; Bruxism; Schizoaffective disorder, unspecified type (H); Bipolar affective disorder in remission; Generalized anxiety disorder; Posttraumatic stress disorder; Obsessive-compulsive disorder, unspecified type; Sedative, hypnotic or anxiolytic dependence (H); Health care maintenance Social History Tobacco UseTypesPacks/DayYears UsedDateSmoking Tobacco: GfgyovNkypxygtnq447.9 [birth year]/04/1971 - 03/30/2014OtherPassive Smoke Exposure: NeverSmokeless Tobacco: Former Comments:Patient stated- she is currently smoking E-cig daily. Alcohol UseStandard Drinks/WeekCommentsYes0 (1 standard drink = 0.6 oz pure alcohol)1 small cider every 2 weeksSocial Connection and Isolation PanelAnswer Date RecordedFrequency of Communication with Friends and FamilyNot on file 07/11/2024How often do you get together with friends or relatives?More than three times a week07/11/2024ttends Mosque ServicesNot on file07/11/2024 Active Member of Clubs or OrganizationsNot on file07/11/2024ttends Club or Organization MeetingsNot on file07/11/2024Marital StatusNot on file07/11/2024 PHQ-2AnswerDate RecordedPHQ-2 Total Score (Adult) - Positive if 3 or more points; Administer PHQ-9 if upoilynp677/18/2025[facility] [place] [facility] - Occupational Stress QuestionnaireAnswerDate [...] building, in an overnight group home, or couch-surfing.)Yes04/07/2025re you worried about losing [...] CommentsNoSex and Gender InformationValueDate RecordedSex Assigned at RgmccDucywc24/06/2020 7:20 AM CSTLegal FynLdrtej13/04/2012 3:20 AM CSTGender FebqlhtlBhlijj78/06/2020 7:20 AM CSTSexual KdrpimhnsghYqfvpcov20/06/2020 7:20 AM CSTdocumented as of this encounter Last Filed Vital Signs Vital SignReadingTime TakenCommentsBlood Tknkdmpb762/8204/10/2025 9:12 AM THREADER Vzjns777804/10/2025 9:12 AM URTBqrqazuxyyl55.4 ??C (97.6 ??F)04/10/2025 9:12 AM CSTRespiratory Xutk201306/11/2024 9:12 AM CSTOxygen Gmgncpdkqs55%04/10/2025 9:12 AM CSTInhaled Oxygen Concentration--Fjxvvr95.3 kg (181 lb 8 oz)04/10/2025 9:12 AM TRNXescoe226.7 cm (5' 6.8)04/10/2025 9:12 AM CSTBody Mass Index28.6 04/10/2025 9:12 AM CSTdocumented in this encounter Progress Notes * Reina Gonzalez MD - 04/10/2025 9:30 AM CST Assessment & Plan Gastroesophageal reflux disease, unspecified whether esophagitis present, improved Heart burn improved Epigastric pain resolved Esophageal dysphagia resolved Nausea resolved Weight loss resolved BMI 28.0-28.9,adult stable Here for follow up of GERD/ heart burn/ epigastric pain/ esophageal dysphagia/ nausea 7 unintentional wt loss. Seen 03/10/25 for this & chart reviewed since that date. Noted a hx of Heartburn previously asymptomatic on Pepcid then on Prilosec OTC prn. Had a known restrictive eating disorder, Under care of [facility] for mental [facility]. Pepcid did not change a star burstsensation in chest that she previously reported did not feel like heartburn & was unchanged by cardiac stenting. Thought that might have been possibly anxiety. Seen in ER in November 2023 for GERD and since then on a PPI intermittently. Was noted to have Gallbladder thickening on u/s abdomen November 2023. 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 Chronic use of proton pump inhibitor meds like omeprazole could cause atypicalpneumonia, fractures ( on Rx for osteoporosis), C diff colitis, vit B 12 and magnesium deficiency. It could also interact and decreases efficacy of Plavix she was on. Later noted normal vit d & magnesium but B 12 on lower end and encouraged 500 mcg vit B daily. Noted in 07/2024 was going to takePepcid 20 mg, vit d 500 & B 12 1000 units daily. & if heart burn worsened was to contact us. Noted was seen at [facility] ER on 11/05/24 for 10 days of persistent epigastric pain. The onset of her symptoms was sudden, beginning with vomiting after consuming a tuna fish sandwich, followed by the onset of pain. Exam was benign & lab work ruled out ACS. CBC, UA, and lipase were unremarkable. CMP revealed creatinine 1.14, which was fairly stable for her. ALK Phos was minimally elevated at 115. The rest of LFT were unremarkable Was dx with reflux & given a GI cocktail and Zofran with improvement in symptoms. Was discharged on Carafate, Zofran, & a bland diet. She called 11/07/24 to say symptoms still persistent though less frequent and no recurrence of vomiting. She was advised to go to the ER to rule out an OK. Seen at [facility] in [place] where noted Chest xray showed no focal consolidations consistent with pneumonia and no pleural effusions. Laboratory work showed stable hemoglobin, slightly elevated creatinine and BUN similar to recent baseline. Normal lipase and lactate. Troponin's were not up trending. EKG showed sinus rhythm with a rate of 74 with PVC's, and T wave abnormalities in anterolateral leads unchanged from prior. IV fluids were given. US gallbladder was ordered to rule out any other cause of her discomfort and did not show any abnormality. Her symptoms thought likely due to GERD & noted she had much relief with the Carafate and famotidine & discharged home. Seen by [facility] on 11/14/24 for the GERD and a hx of abdominal pain & noted last BM had been 7 days prior. Was given pantoprazole 20 mg told to do 10 weeks then ever other day 2 weeks the n stop. Carafate was stopped, was continued on famotidine 20 mg bid prn, & miralax 17 g bid, was also given docusate and dulcolax prn and ct abdomen ordered for lower abdominal pain. Noted no nausea at that visit. Ct showed ? Colitis and given Augmentin bid 7 days in case was infectious. Seen by [facility] again on 11/18/24 when noted better and was to complete regimen given. On 11/30/24 noted given a Rx for a ecoli UTI with 3 days abx. On 03/01/25 spoke to triage about having started vomiting 2.5 hrs prior & anytime ate chicken. The chicken feel stuck in her throat and then finally go downbut then would vomit it up. On 02/27/25 night she had, started having these same issues but after eating some turkmen fries which triggered the vomiting. First felt like they were stuck in esophagus. Was seen 03/10/25 by PCP & noted feeling nausea even with water prior 1 to 2 months. Food did not feel appetizing and reported has thrown up a couple time. [place] bad heart burn in the middle of thenight . No preceding diet change. Reported her son thought related mental health but she dd not relate symptoms to anxiety. Did have hx of constipation which could affect upper gut and hx of anorexiawhich complicated care. Had had wt loss. Noted in 07/2024 was 188 lbs & on 03/10 was 182 lbs & BMI down from 30 to 28. Was on asa EC daily. Since last seen mirtazapine increased back to 30 mg, noted having more nightmares, and sanctura was new. She was worried about cancer. Noted had finishedthe Protonix taper given in November few weeks prior, for worsening heart burn and epigastric pain at that time, & was back on famotidine 20 mg bid. Understood risk of chronic PPI given Osteoporosis and CKD3 but given worsening heart burn causing epigastric pain and dysphagia advised she stop fosamax as oral bisphosphonate likely made heart burn worse. Suspected heart burn contributing to possible stricture causing nausea/ vomiting.& dysphagia symptoms. Advised she continue Pepcid 20 mg twice a day. Added Protonix back 20 mg twice a day 2 weeks, then 1 a day 2 weeks then 1 every other day2 weeks then stop. Sucralfate 1 gram 4/ day 10 days.was referred to GI for scope & suspected stricture dilation. Also referred to endo to figure out alternate med for osteoporosis as had intolerable GERD on oral bisphosphonate's/fosamax. Advised she keep head of bed elevated. Eat frequent smallmeals. Avoid all alcohol until better. Avoid carbonated drinks. Only drink coffee with a meal ( only takes 1/ day) & advised to schedule miralax daily. & go to the ER if worse. Later labs showed normal LFT's, Kidney function (GFR) decreased but stable to 3 months ago but downfrom what it was in 2023. Encouraged to increase water intake. Plan was to not be on Protonix too long given does have chronic kidney disease. Electrolytes were normal & noted normal iron, ferritin, TSH & later H pylori stool noted negative. Since last seen noted came off fosamax, completed sucralfate, on tapering dose of Protonix & remains on Pepcid bid & GERD better heart burn at night improved, no longer with dysphagia, nauseaor vomiting. Her wt has been stable, no further wt loss, BMI stable at 28 . Is now on Protonix 1 day 2 weeks then to do 1 every other day 2 weeks then stop while remaining on famotidine 20 mg twice aday. To see GI in july & ok to wait as n redflag symptoms or signs noted & improved but look like her togo head with them to complete the work up. & to see endo in 2025 for alternative to oral bisphosphonate med for her osteoporosis. BMI stable at 28. In 07/2024 noted had been 30, no longer on Wellbutrin, was discontinued in fall 2023 maybe, previously on decreasing dose of mirtazapine, then back to 30 since last seen. Has been using her moms electric mobility device outdoors, more sedentary etc & no longer with prediabetes.Pain in greater trochanteric area & mild PAD limits exercise. Reports no known snoring but given hx of restless legs occurring at night and concern about weight previously discussed may be worth doing a sleep study to rule out undiagnosed MAGDALENE. Reports no call from wt doctor ( referral placed onher request in ) but also since reported to her therapist that she opted not to pursue due to side effects regarding wt loss meds. Labs showed normal HBa1c in 07/2024 & normal TSH in mar 2027. Recently had unintentional wt loss due to GERD now resolved & stable. To monitor closely given hx of anorexia as well. Currently reports no constipation but since tends to get that and it may contribute to nausea and decreased appetite, was advised to schedule miralax daily. Noted not started yet & encouraged to so & titrate to get one soft BM a day. Edentulous but able to chew Hx of anorexia, when last seen in 07/2024 was fixated about getting on meds to loose weight. Had been referred to wt clinic but not seen yet. Now BMI 28 & likely not necessary .Noted in 07/2024 frustration and anxiety about wt gain and referred to wt clinic given complicated hx. She opted not to see them due to side effects of med but also got triggered seeing obesity on her list of dx. Difficult to know for sure if recent symptoms & weight loss due to stress/ gastritis alone or also someelement of restrictive eating disorder. Since seen weight stable & g symptoms improved & denies intentionally restricting diet. Will monitor. Hx of age related osteoporosis, with history of prior noted vertebral compression fracture & Vitamin D deficiency. Was on fosamax 70 mg once a week since 01/2022 till mar 2025. Previously reportedno side effects. No jaw pain. No falls or fractures. Discussed risks benefits in 07/2024 & optedto continue. At that time opted no endo apt. Vit d had been normal off supp in November 2023. Dexa in 09/2024 noted osteopenia with the estimated 10-year risk for a major osteoporotic fracture of 7.6% and for a hip fracture 0.5% increase in the spine included improvement due to pharmacotherapyvs inter-current progression of spine degeneration. Ct abdomen 11/2024 noted Unchanged mild L2 superior endplate deformity. No destructive bone lesions. Vitamin D level was normal in 07/2024 but encouraged getting 1000 IU daily. In mar 2025 due to worsening GERD & dysphagia prior few months, fosamax was stopped and referred to endo for alternatives given her case Currently GERD & dysphagia resolved , on tapering off dose of PPI & to remain on Pepcid. Awaiting visit with endo in 09/2025 to decide alternative med for osteoporosis. To continue calcium andvit d . CKD 3 stable, No sign of secondary hyperparathyroidism, on a chronic PPI. Kidney function stable to3 months ago but down abit since 2023. Encouraged to stay well hydrated and will continue to monitor.Avoid anti-inflammatories as much as possible and try to minimize duration / dose of PPI. Is titrating off Protonix currently. Hx of CAD, prior 3v bypass/ ischemic cardiomyopathy/ hx of stable and unstable angina/ s/p PCI stent placed in October 2022 , on asa 81 mg EC daily, atorvastatin 40 mg bedtime, lisinopril 2.5 mg daily, Toprol Xl 25 mg daily, on Plavix & sublingual nitroglycerin prn managed by cards currently asymptomatic Angiogram done 10/20/22 for worsened daily substernal chest pain with radiation down left arm and flushing showed 99% RCA lesion, ost LAD to pLAD 100%, ramus 70%, OM1 100%, and origin to prox graft lesion 100%. No intervention was performed due to complexity of PCI required and contrast limit. She was discharged and advised to return for OP procedure in 10-14 days. On 10/23/22 she was BIBA for chest pain that awoke her from sleep. Initial troponin 25, NT-P BNP 1,918, EKG without ST changes. She underwent PCI with successful JOYCE x1 to LCx & brylinta added bid to other meds continued. Seen bycardiology 10/27/22 noted stable angina, reviewed echocardiogram demonstrated mildly reduced EF (40-45%) with akinesis of mid anteroseptal, inferosepta, and all distal segments, with grade I diastolicdysfunction. continued DAPT: Ticagrelor 90mg BID + aspirin 81mg daily for 12 months, then ASA 81mg lifelong, atorvastatin 40mg daily, Imdur 30mg daily. Had sublingual nitroglycerin tabs, had not usedthem recently did not check BP at home,noted increased dizziness recently. Lisinopril decreased to 2 .5mg daily & continued on Toprol XL 50mg daily & on Imdur 30mg daily, was to call if still feeling dizzy & was to follow up: echo 6 months post-PCI + clinic visit. Seen by cardiology again on 01/07/23 noted still having chest symptoms intermittently. Imdur discontinued due to hypotension,& Toprol Xl decreased to 12.5 mg daily, continued on lisinopril 2.5 mg daily. Seen by cards in summer 2023. To get an mri to determine anticoagulation for prior noted LV thrombus. In 11/2023 mri cardiac noted the left ventricle was normal in cavity size. The global systolic function was moderately reduced. The LVEF is 43%. There was akinesis of the mid-distal anterior and anteroseptal, and themid inferolateral segments.The right ventricle was normal in cavity size. The global systolic function was normal. The RVEF was 48%. The right atrium was mildly enlarged and the left atrium was moderately enlarged. There was no significant valvular disease. Late gadolinium enhancement imaging: transmural hyper enhancement in mid-distal anterior and anteroseptal (LAD) and the mid inferolateral segments (LCx). There was no pericardial effusion. There was no intracardiac thrombus. Ischemic cardiomyopathy with anterior, anteroseptal and inferolateral infarctions with m moderatelyreduced left ventricular function, LVEF 43% Normal right ventricular function, RVEF 48%. There was no left ventricular thrombus identified on mri heart in 11/2023. No significant changes noted when compared to prior study from 2020 & was taken off eliquis & put back on a baby asa in 2023. . In 07/2024 reported short of breath and leg hurt when went up stairs but had had no chest pain and had not used nitro in a while Seen by cards 09/15/24 & noted palpitations and metoprolol increased to 25 mg. Continues on Plavix 75 & asa 81 for stable angina, HLD & BP well controlled, continued on Lipitor 80 & repatha shots & lisinopril 2.5 mg. Noted no longer on eliquis since 08/2023 when repeat echo had shown resolution of prior noted apical thrombus. & advised to follow up with cards in 1 yr with natalie (2025). Reports had dull ache couple days ago on & off but no symptoms currently. If recurs & persistent to connect with her cards & go to the ER. HLD on atorvastatin 80 mg & on repatha. Cholesterol levels have been at goal levels on medication, a regular exercise program with at least 150 minutes of aerobic exercise per week, is recommended Hx of palpitations, none currently on beta jonnathan, Sinus bradycardia, pulse improved with decreasein Toprol but noted dose increased in 09/2024 due to palpitations. Has felt mild dizziness couple times. Pulse today in 50s. Encouraged posture changes slowly & Encouraged to stay hydrated and notskip meals, have a smoothie if not very hungry and consider zio patch with cards if palpitations get worse. At 07/2024 visit reviewed leg cramps on walking up stairs.being a former smoker, at risk for peripheral vascular disease doppler arteries ordered in 07/2024. In August 2024 they indicated mild PAD with ESAU 0.8 B/l and referred to vascular. Seen by vascular 2024 & a repeat ESAU & arterial duplex done showed normal resting ABIS and positive exercise study B/l with right decrease ankle pressures approximately 40 mmHg during the first minute of recovery and decreasing ankle pressures of approximately 30 mmHg at 5 minutes of rest. Ankle pressures never returned to baseline. Excess that indicates positive findings for peripheral vascular disease. & on left Ankle pressures decreased approximately 25 mmHg during the first minute of rest and eventually returned near baseline after 11 minutes arrest consistent with mild bilateral PAD although she was not able to walk more than 3 minutes on the treadmill. ESAU 0.88 on the right, dropped to 0.56 with exercise. ESUA 0.87 on the left, dropped to 0.71 postexercise. Duplex otherwise showed triphasic waveforms on bilateral lower extremity vasculature. She remains very limited not just by her intermittent claudication but her hip pain mostly on the right. Even if her PAD improves, she will continue to have limitation in walking given the severe hippain. She is currently unable to engage in any prolonged walking exercise and does use a motorized scooter for ambulation long distances. Vascular discussed their walking program but felt would not be a good candidate for either supervised or home-based walking program given the severity of her hippain that prevented her from engaging in this activity. Alternative discussed would be cycling. Shereported that she could not afford a stationary bike and did not have any gym membership. I asked her to reach out to her insurance to explore if she could have coverage for gym membership. Vascular contemplated cilostazol but she did have heart failure & also they did not believe improving herwalking distance with PAD would actually have her walk more given the limitation with hip pain noted. Was to continue with antiplatelet therapy. On DAPT per cardiology. Continue dyslipidemia treatment with statin and evolocumab. LDL at goal. Continue blood pressure medication. Well-controlled.Congratulated on smoking cessation. & to repeat ESAU with exercise and arterial duplex in 6 months with follow-up with vascular. . Reports today no longer with leg cramping , may get occasional knee pain related to arthritis but not the toe to groin pain she had been having previously. Is able to walk but not long distances & has to pace herself.If goes anywhere where there might be alot of walking she takes her electric scooter with her Copd/ Pulmonary emphysema/former smoker on trellegy & albuterol prn previously under care of [facility]. Dr Toro & now [facility]. No longer now on e cig. CT lung cancer screen in 2022 showed stable nodules, emphysema and calcifications. CT lung cancer screen done 08/03/24 was normal tocontinue yearly. screen due in 08/2025 now. Seen by pulmonary estb at [facility] on 02/27/25 for COPD.PFTS noted The FEV1/FVC was reduced. The FEV1 was moderately reduced. The FVC was normal. The ATX3Rxap 3.15. The TLC by body plethysmography was normal. The DLCO was moderately reduced; however, thediffusing capacity was not corrected for the patient's hemoglobin. Following administration of [facility] hodilators, there was a significant improvement in FVC. & Continued on Trelegy once daily and albuterol as needed. No modifications to current therapy required. Pulmonary rehabilitation discussedbut declined due to logistical and physical barriers. Encouraged to pursue physical activity as tolerated, including possible pool exercises if accessible. They filled her Trelegy inhaler. & to continue current regimen of Trelegy once daily and albuterol as needed. Copd feels good right now Former smoker: to continue to abstain from tobacco use. Continue annual lung cancer screening, nextlow-dose CT scheduled for August 2025. No recurrence of recurrent rectal bleed, improved with oral abx, suspected due to ischemic colitis in 2022. A yr prior had been hospitalized with 1st episode for colitis of unclear etiology seen on CT. Seen by GI 10/29/22 virtually for hx of episodic hematochezia (3.) These episodes had typically lasted a few days before resolving spontaneously & there had been associated abdominal cramping as well. She ultimately improved with antibiotics. Was recommended a diagnostic colonoscopy at least 6months post stent placement, Seen by GI virtually 01/12/23 for hx of recurrent lower abdominal cramping and hematochezia. Noted then since treatment with antibiotics, the symptoms had largely resolved. She still dealt with chronic constipation, previously treated with fiber. Not sure if started magnesium or on metamucil as advised previously by GI. Her dx colonoscopy in apr 2023 showed 1 tubular adenoma, rest hyperplastic polyps & asymptomatic diverticulosis and hemorrhoids and advised to recheck csocpe in 2029. Was treated for diverticulitis with abx in November 2024. No recurrence since then Hemorrhoids have not been bothersome Hx of mixed urge and stress incontinence seeing urology. On sacntura and vesicare now helps. No pelvic therapy done or desired. No change since last seen Left big toe nail had curved, was thick, & growing into skin, seen by podiatry they filed it down & is now manageable Spots on both flanks SK bilateral asymptomatic 1 cm each. Monitor. No need for intervention Hx of restlessness noted in legs in 11/2023/ Akathiisia improved with iron and tonic water. No swelling or leg ache end of day. Has had normal cbc, electrolytes iron, ferritin, TSH & vit d. Encouraged increased fiber and fluid. Does have mild PAD but the most likely cause of the restless legs thought were her psyche meds. Remeron, Geodon and Seroquel likely contributing to symptoms. She was advised to discuss with her psyche provider. Was given behavioral strategies to mitigate restless legsin the past and discussed to avoid aggravating factors, when possible: Insufficient sleep/ Poor quality sleep/ Untreated sleep apnea/ Caffeine/ Alcohol/ Certain medications: Common medications that could worsen RLS include most antidepressants, antipsychotic drugs, dopamine-blocking antiemetics (eg, metoclopramide), centrally-acting antihistamines. To do mental alerting activities when at rest Working on a computer/ Doing [employer] puzzles. Advised regular exercise like walking/ Biking/ Yoga & When symptoms already started, to try soaking legs in a warm bath/ Leg massage/ Consider Pneumatic compression devices. Reported no known snoring but given occurring at night and concern about weight may be worth doing a sleep study to rule out undiagnosed MAGDALENE. Restlessness in leg improved with i haresh and yasmany water. & Has apt coming up with sleep Bruxism improved.since tapered off Wellbutrin in 2023. Gums and teeth fine, got new dentures, no sores, & encouraged regular dentist checks. To see sleep soon. Mental health, Hx of anorexia, OCD, Anxiety, PTSD, bipolar, schizoaffective, chronic sedative use PHQ high scores chronically, stable to prior, currently no SI, no longer on Wellbutrin Xl 150 mg, continues on Geodon 60 + 40 mg, Seroquel 50 ( 1- 2) , mirtazapine back to 30 mg & clonazepam 1 mg (gets 58 tabs a month), under care of liliane managing meds, visits with her therapist weekly & also does mid wk calls with them. EKG in 11/2023 showed no prolonged QT.&no concerns note don EKG done in ER in the summer of 2024 in outside system. Seen by therapy regularly , by liliane on 08/02/24 & continued on Geodon 40mg QAM and 60mg at dinner, mirtazapine 15 mg at bed, clonazepam 1mg (0.5-1) BID PRN #58, & resumed Seroquel 100mg at bed PRN, seen by liliane 08/30 & continue same meds. Seen by liliane and Seroquel changed to 50 mg 1 to 2 at bedtime prn and mirtazapine increased to 30 mg & continued on same meds when seen by them 10/31/24, 11/30/24 & 12/30/24 On 02/23/25 apt wt liliane noted having more nightmares and discussed prazosin & side effects. Now see therapy every 2 weeks last seen by them 04/07/25 Mental health currently stable. reviewed No breast issues, Declines exam,Declines mammogram No fh of breast or ovarian or colon cancer Declines pap, reports no prior abnormal pap's. Is not sexually active. Previously had reported her health care directives were in [place] where moved from 15 yrs prior. Encouraged to update and bring us a copy when ready if desired to put in her chart. Vision wears glasses & encouraged getting a dilated eye check, as not seen in few yrs. Hearing reported was good Vaccines reviewed Advised Tdap at her pharmacy previously declined hep A & B vaccine, to consider at her pharmacy Utd with flu & Covid last week. To return 07/17/25 for follow up. BMI 28 BMI stable at 28. In 07/2024 noted had been 30, no longer on Wellbutrin, was discontinued in fall 2023 maybe, previously on decreasing dose of mirtazapine, then back to 30 since last seen. Has been using her moms electric mobility device outdoors, more sedentary etc & no longer with prediabetes.Pain in greater trochanteric area & mild PAD limits exercise. Reports no known snoring but given hx of restless legs occurring at night and concern about weight previously discussed may be worth doing a sleep study to rule out undiagnosed MAGDALENE. Reports no call from wt doctor ( referral placed onher request in ) but also since reported to her therapist that she opted not to pursue due to side effects regarding wt loss meds. Labs showed normal HBa1c in 07/2024 & normal TSH in mar 2027. Recently had unintentional wt loss due to GERD now resolved & stable. To monitor closely given hx of anorexia as well. Constipation, unspecified constipation type Currently reports no constipation but since tends to get that and it may contribute to nausea and decreased appetite, was advised to schedule miralax daily. Noted not started yet & encouraged to so & titrate to get one soft BM a day. Loss of teeth due to periodontal disease, unspecified edentulism class Edentulous but able to chew Anorexia nervosa (H) Hx of anorexia, when last seen in 07/2024 was fixated about getting on meds to loose weight. Had been referred to wt clinic but not seen yet. Now BMI 28 & likely not necessary .Noted in 07/2024 frustration and anxiety about wt gain and referred to wt clinic given complicated hx. She opted not to see them due to side effects of med but also got triggered seeing obesity on her list of dx. Difficult to know for sure if recent symptoms & weight loss due to stress/ gastritis alone or also someelement of restrictive eating disorder. Since seen weight stable & g symptoms improved & denies intentionally restricting diet. Will monitor. Age related osteoporosis, unspecified pathological fracture presence History of vertebral compression fracture Vitamin D deficiency Hx of age related osteoporosis, with history of prior noted vertebral compression fracture & Vitamin D deficiency. Was on fosamax 70 mg once a week since 01/2022 till mar 2025. Previously reportedno side effects. No jaw pain. No falls or fractures. Discussed risks benefits in 07/2024 & optedto continue. At that time opted no endo apt. Vit d had been normal off supp in November 2023. Dexa in 09/2024 noted osteopenia with the estimated 10-year risk for a major osteoporotic fracture of 7.6% and for a hip fracture 0.5% increase in the spine included improvement due to pharmacotherapyvs inter-current progression of spine degeneration. Ct abdomen 11/2024 noted Unchanged mild L2 superior endplate deformity. No destructive bone lesions. Vitamin D level was normal in 07/2024 but encouraged getting 1000 IU daily. In mar 2025 due to worsening GERD & dysphagia prior few months, fosamax was stopped and referred to endo for alternatives given her case Currently GERD & dysphagia resolved , on tapering off dose of PPI & to remain on Pepcid. Awaiting visit with endo in 09/2025 to decide alternative med for osteoporosis. To continue calcium andvit d . Stage 3 chronic kidney disease, unspecified whether stage 3a or 3b CKD (H) CKD 3 stable, No sign of secondary hyperparathyroidism, on a chronic PPI. Kidney function stable to3 months ago but down abit since 2023. Encouraged to stay well hydrated and will continue to monitor.Avoid anti-inflammatories as much as possible and try to minimize duration / dose of PPI. Is titrating off Protonix currently. Coronary artery disease involving coronary bypass graft of [place] heart with other forms of angina pectoris Status post three vessel coronary artery bypass Ischemic cardiomyopathy Hx of CAD, prior 3v bypass/ ischemic cardiomyopathy/ hx of stable and unstable angina/ s/p PCI stent placed in October 2022 , on asa 81 mg EC daily, atorvastatin 40 mg bedtime, lisinopril 2.5 mg daily, Toprol Xl 25 mg daily, on Plavix & sublingual nitroglycerin prn managed by cards currently asymptomatic Angiogram done 10/20/22 for worsened daily substernal chest pain with radiation down left arm and flushing showed 99% RCA lesion, ost LAD to pLAD 100%, ramus 70%, OM1 100%, and origin to prox graft lesion 100%. No intervention was performed due to complexity of PCI required and contrast limit. She was discharged and advised to return for OP procedure in 10-14 days. On 10/23/22 she was BIBA for chest pain that awoke her from sleep. Initial troponin 25, NT-P BNP 1,918, EKG without ST changes. She underwent PCI with successful JOYCE x1 to LCx & brylinta added bid to other meds continued. Seen bycardiology 10/27/22 noted stable angina, reviewed echocardiogram demonstrated mildly reduced EF (40-45%) with akinesis of mid anteroseptal, inferosepta, and all distal segments, with grade I diastolicdysfunction. continued DAPT: Ticagrelor 90mg BID + aspirin 81mg daily for 12 months, then ASA 81mg lifelong, atorvastatin 40mg daily, Imdur 30mg daily. Had sublingual nitroglycerin tabs, had not usedthem recently did not check BP at home,noted increased dizziness recently. Lisinopril decreased to 2 .5mg daily & continued on Toprol XL 50mg daily & on Imdur 30mg daily, was to call if still feeling dizzy & was to follow up: echo 6 months post-PCI + clinic visit. Seen by cardiology again on 01/07/23 noted still having chest symptoms intermittently. Imdur discontinued due to hypotension,& Toprol Xl decreased to 12.5 mg daily, continued on lisinopril 2.5 mg daily. Seen by cards in summer 2023. To get an mri to determine anticoagulation for prior noted LV thrombus. In 11/2023 mri cardiac noted the left ventricle was normal in cavity size. The global systolic function was moderately reduced. The LVEF is 43%. There was akinesis of the mid-distal anterior and anteroseptal, and themid inferolateral segments.The right ventricle was normal in cavity size. The global systolic function was normal. The RVEF was 48%. The right atrium was mildly enlarged and the left atrium was moderately enlarged. There was no significant valvular disease. Late gadolinium enhancement imaging: transmural hyper enhancement in mid-distal anterior and anteroseptal (LAD) and the mid inferolateral segments (LCx). There was no pericardial effusion. There was no intracardiac thrombus. Ischemic cardiomyopathy with anterior, anteroseptal and inferolateral infarctions with m moderatelyreduced left ventricular function, LVEF 43% Normal right ventricular function, RVEF 48%. There was no left ventricular thrombus identified on mri heart in 11/2023. No significant changes noted when compared to prior study from 2020 & was taken off eliquis & put back on a baby asa in 2023. . In 07/2024 reported short of breath and leg hurt when went up stairs but had had no chest pain and had not used nitro in a while Seen by cards 09/15/24 & noted palpitations and metoprolol increased to 25 mg. Continues on Plavix 75 & asa 81 for stable angina, HLD & BP well controlled, continued on Lipitor 80 & repatha shots & lisinopril 2.5 mg. Noted no longer on eliquis since 08/2023 when repeat echo had shown resolution of prior noted apical thrombus. & advised to follow up with cards in 1 yr with natalie (2025). Reports had dull ache couple days ago on & off but no symptoms currently. If recurs & persistent to connect with her cards & go to the ER. Hyperlipidemia, unspecified hyperlipidemia type HLD on atorvastatin 80 mg & on repatha. Cholesterol levels have been at goal levels on medication, a regular exercise program with at least 150 minutes of aerobic exercise per week, is recommended Palpitations Hx of palpitations, none currently on beta jonnathan, Sinus bradycardia, pulse improved with decreasein Toprol but noted dose increased in 09/2024 due to palpitations. Has felt mild dizziness couple times. Pulse today in 50s. Encouraged posture changes slowly & Encouraged to stay hydrated and notskip meals, have a smoothie if not very hungry and consider zio patch with cards if palpitations get worse. PAD (peripheral artery disease) At 07/2024 visit reviewed leg cramps on walking up stairs.being a former smoker, at risk for peripheral vascular disease doppler arteries ordered in 07/2024. In August 2024 they indicated mild PAD with ESAU 0.8 B/l and referred to vascular. Seen by vascular 2024 & a repeat ESAU & arterial duplex done showed normal resting ABIS and positive exercise study B/l with right decrease ankle pressures approximately 40 mmHg during the first minute of recovery and decreasing ankle pressures of approximately 30 mmHg at 5 minutes of rest. Ankle pressures never returned to baseline. Excess that indicates positive findings for peripheral vascular disease. & on left Ankle pressures decreased approximately 25 mmHg during the first minute of rest and eventually returned near baseline after 11 minutes arrest consistent with mild bilateral PAD although she was not able to walk more than 3 minutes on the treadmill. ESAU 0.88 on the right, dropped to 0.56 with exercise. ESAU 0.87 on the left, dropped to 0.71 postexercise. Duplex otherwise showed triphasic waveforms on bilateral lower extremity vasculature. She remains very limited not just by her intermittent claudication but her hip pain mostly on the right. Even if her PAD improves, she will continue to have limitation in walking given the severe hippain. She is currently unable to engage in any prolonged walking exercise and does use a motorized scooter for ambulation long distances. Vascular discussed their walking program but felt would not be a good candidate for either supervised or home-based walking program given the severity of her hippain that prevented her from engaging in this activity. Alternative discussed would be cycling. Shereported that she could not afford a stationary bike and did not have any gym membership. I asked her to reach out to her insurance to explore if she could have coverage for gym membership. Vascular contemplated cilostazol but she did have heart failure & also they did not believe improving herwalking distance with PAD would actually have her walk more given the limitation with hip pain noted. Was to continue with antiplatelet therapy. On DAPT per cardiology. Continue dyslipidemia treatment with statin and evolocumab. LDL at goal. Continue blood pressure medication. Well-controlled.Congratulated on smoking cessation. & to repeat ESAU with exercise and arterial duplex in 6 months with follow-up with vascular. . Reports today no longer with leg cramping , may get occasional knee pain related to arthritis but not the toe to groin pain she had been having previously. Is able to walk but not long distances & has to pace herself.If goes anywhere where there might be alot of walking she takes her electric scooter with her Emphysema, unspecified (H) Copd/ Pulmonary emphysema/former smoker on trellegy & albuterol prn previously under care of [facility]. Dr Toro & now [facility]. No longer now on e cig. CT lung cancer screen in 2023 showed stable nodules, emphysema and calcifications. CT lung cancer screen done 08/03/24 was normal tocontinue yearly. screen due in 08/2025 now. Seen by pulmonary estb at [facility] on 02/27/25 for COPD.PFTS noted The FEV1/FVC was reduced. The FEV1 was moderately reduced. The FVC was normal. The [id number] 3.15. The TLC by body plethysmography was normal. The DLCO was moderately reduced; however, thediffusing capacity was not corrected for the patient's hemoglobin. Following administration of [facility] hodilators, there was a significant improvement in FVC. & Continued on Trelegy once daily and albuterol as needed. No modifications to current therapy required. Pulmonary rehabilitation discussedbut declined due to logistical and physical barriers. Encouraged to pursue physical activity as tolerated, including possible pool exercises if accessible. They filled her Trelegy inhaler. & to continue current regimen of Trelegy once daily and albuterol as needed. Copd feels good right now Former smoker Former smoker: to continue to abstain from tobacco use. Continue annual lung cancer screening, nextlow-dose CT scheduled for August 2025. History of ischemic colitis Diverticular disease of colon Hemorrhoids, unspecified hemorrhoid type History of adenomatous polyp of colon No recurrence of recurrent rectal bleed, improved with oral abx, suspected due to ischemic colitis in 2022. A yr prior had been hospitalized with 1st episode for colitis of unclear etiology seen on CT. Seen by GI 10/29/22 virtually for hx of episodic hematochezia (3.) These episodes had typically lasted a few days before resolving spontaneously & there had been associated abdominal cramping as well. She ultimately improved with antibiotics. Was recommended a diagnostic colonoscopy at least 6months post stent placement, Seen by GI virtually 01/12/23 for hx of recurrent lower abdominal cramping and hematochezia. Noted then since treatment with antibiotics, the symptoms had largely resolved. She still dealt with chronic constipation, previously treated with fiber. Not sure if started magnesium or on metamucil as advised previously by GI. Her dx colonoscopy in apr 2023 showed 1 tubular adenoma, rest hyperplastic polyps & asymptomatic diverticulosis and hemorrhoids and advised to recheck csocpe in 2029. Was treated for diverticulitis with abx in November 2024. No recurrence since then Hemorrhoids have not been bothersome Mixed stress and urge urinary incontinence Hx of mixed urge and stress incontinence seeing urology. On sacntura and vesicare now helps. No pelvic therapy done or desired. No change since last seen Dystrophic nail Left big toe nail had curved, was thick, & growing into skin, seen by podiatry they filed it down & is now manageable Seborrheic keratoses Spots on both flanks SK bilateral asymptomatic 1 cm each. Monitor. No need for intervention Akathisia Hx of restlessness noted in legs in 11/2023/ Akathiisia improved with iron and tonic water. No swelling or leg ache end of day. Has had normal cbc, electrolytes iron, ferritin, TSH & vit d. Encouraged increased fiber and fluid. Does have mild PAD but the most likely cause of the restless legs thought were her psyche meds. Remeron, Geodon and Seroquel likely contributing to symptoms. She was advised to discuss with her psyche provider. Was given behavioral strategies to mitigate restless legsin the past and discussed to avoid aggravating factors, when possible: Insufficient sleep/ Poor quality sleep/ Untreated sleep apnea/ Caffeine/ Alcohol/ Certain medications: Common medications that could worsen RLS include most antidepressants, antipsychotic drugs, dopamine-blocking antiemetics (eg, metoclopramide), centrally-acting antihistamines. To do mental alerting activities when at rest Working on a computer/ Doing crossword puzzles. Advised regular exercise like walking/ Biking/ Yoga & When symptoms already started, to try soaking legs in a warm bath/ Leg massage/ Consider Pneumatic compression devices. Reported no known snoring but given occurring at night and concern about weight may be worth doing a sleep study to rule out undiagnosed MAGDALENE. Restlessness in leg improved with i haresh and yasmany water. & Has apt coming up with sleep Bruxism Bruxism improved.since tapered off Wellbutrin in 2023. Gums and teeth fine, got new dentures, no sores, & encouraged regular dentist checks. To see sleep soon. Schizoaffective disorder, unspecified type (H) Bipolar affective disorder in remission Generalized anxiety disorder Posttraumatic stress disorder Obsessive-compulsive disorder, unspecified type Sedative, hypnotic or anxiolytic dependence (H) Mental health, Hx of anorexia, OCD, Anxiety, PTSD, bipolar, schizoaffective, chronic sedative use PHQ high scores chronically, stable to prior, currently no SI, no longer on Wellbutrin Xl 150 mg, continues on Geodon 60 + 40 mg, Seroquel 50 ( 1- 2) , mirtazapine back to 30 mg & clonazepam 1 mg (gets 58 tabs a month), under care of liliane managing meds, visits with her therapist weekly & also does mid wk calls with them. EKG in 11/2023 showed no prolonged QT.&no concerns note don EKG done in ER in the summer of 2024 in outside system. Seen by therapy regularly , by liliane on 08/02/24 & continued on Geodon 40mg QAM and 60mg at dinner, mirtazapine 15 mg at bed, clonazepam 1mg (0.5-1) BID PRN #58, & resumed Seroquel 100mg at bed PRN, seen by liliane 08/30 & continue same meds. Seen by liliane and Seroquel changed to 50 mg 1 to 2 at bedtime prn and mirtazapine increased to 30 mg & continued on same meds when seen by them 10/31/24, 11/30/24 & 12/30/24 On 02/23/25 apt wt liliane noted having more nightmares and discussed prazosin & side effects. Now see therapy every 2 weeks last seen by them 04/07/25 Mental health currently stable. Health care maintenance HM reviewed No breast issues, Declines exam,Declines mammogram No fh of breast or ovarian or colon cancer Declines pap, reports no prior abnormal pap's. Is not sexually active. Previously had reported her health care directives were in [place] where moved from 15 yrs prior. Encouraged to update and bring us a copy when ready if desired to put in her chart. Vision wears glasses & encouraged getting a dilated eye check, as not seen in few yrs. Hearing reported was good Vaccines reviewed Advised Tdap at her pharmacy previously declined hep A & B vaccine, to consider at her pharmacy Utd with flu & covd last week. To return 07/17/25 for follow up. Follow-up Return for follow-up per plan, follow up for physical. The longitudinal plan of care for the diagnosis(es)/condition(s) as documented were addressed during this visit. Due to the added complexity in care, I will continue to support Reina in the subsequent management and with ongoing continuity of care. Subjective Reina is a 65 year old, presenting for the following health issues: Follow Up (-nausea /) 04/10/2025 9:10 AM Additional Questions Roomed by Neida ramey Accompanied by self 04/10/2025 Forms Any forms needing to be completed Yes No Multiple values from one day are sorted in reverse-chronological order HPI Answers submitted by the patient for this visit: Provider Visit on 04/10/2025 9:30 AM with Reina Gonzalez Primary Care Visit Questionnaire (Submitted on 04/09/2025) How many servings of fruits and vegetables do you eat daily?: 0-1 On average, how many sweetened beverages do you drink each day (Examples: soda, juice, sweet tea, etc. Do NOT count diet or artificially sweetened beverages)?: 0 How many minutes a day do you exercise enough to make your heart beat faster?: 9 or less How many days a week do you exercise enough to make your heart beat faster?: 3 or less How many days per week do you miss taking your medication?: 0 04/09/2025 Reason for Visit- Other Chronic What is the reason for your visit? Follow up visit 04/09/2025 Chronic Condition Check In Are you happy with your current treatment? Yes Do you have any of the following (muscle aches, dizziness, fatigue, cough, swelling, slow heartbeat, dry mouth, loss of appetitie, diarrhea/constipation, sexual problems, headaches, trouble with sleep, weight change, feeling nervous/on edge, drowsy)? Weight gain How many servings of fruits and vegetables do you eat daily? 0-1 On average, how many sweetened beverages do you drink each day (Examples: soda, juice, sweet tea, etc. Do NOT count diet or artificially sweetened beverages)? 0 How many minutes a day do you exercise enough to make your heart beat faster? 9 or less How many days a week do you exercise enough to make your heart beat faster? 3 or less How many days per week do you miss taking your medication? 0 Review of Systems Constitutional, HEENT, cardiovascular, pulmonary, GI, , musculoskeletal, neuro, skin, endocrine and psych systems are negative, except as otherwise noted. Objective BP 136/82 (BP Location: Right arm, Patient Position: Sitting, Cuff Size: Adult Regular) Pulse 58 Temp 97.6 ??F (36.4 ??C) (Temporal) Resp 18 Ht 1.697 m (5' 6.8) Wt 82.3 kg (181 lb 8 oz) SpO2 94% BMI 28.60 kg/m?? Body mass index is 28.6 kg/m??. Physical Exam GENERAL: alert and no distress EYES: Eyes grossly normal to inspection, PERRL and conjunctivae and sclerae normal, glasses HENT: normal cephalic/atraumatic, right ear: normal: no effusions, no erythema, normal landmarks, left ear: occluded with wax, nose and mouth without ulcers or lesions, oropharynx clear, and oral mucous membranes moist NECK: no adenopathy, no asymmetry, masses, or scars RESP: lungs clear to auscultation - no rales, rhonchi or wheezes CV: regular rate and rhythm, normal S1 S2, no S3 or S4, no murmur, click or rub, no peripheral edema ABDOMEN: soft, nontender, no hepatosplenomegaly, no masses and bowel sounds normal MS: no gross musculoskeletal defects noted, no edema SKIN: no suspicious lesions or rashes, has 1 cm SK B/l flanks NEURO: Normal strength and tone, mentation intact and speech normal PSYCH: mentation appears normal, affect normal/bright No results found for any visits on 04/10/25. No results found for this or any previous visit (from the past 24 hours). Signed Electronically by: Reina Gonzalez MD ADER documented in this encounter Plan of Treatment DateTypeDepartmentCare Team (Latest Contact Info)Nhtizaayuuk08/09/2026 10:[address] [address] AFSHIN F275 [facility] [phone] Zeynep Richmond, [address] [address] 05/19/2025 10:[address] [facility] [address] AFSHIN F275 [address] [phone] Zeynep Richmond, SPA SUPERVISOR [address] [place] [address] 366644 05/22/2025 10:[address] [facility] [address] AF[place]IN F275 [facility] [address] [phone] Digna Vega, CREATIVE WRITING ENGLISH PROFESSOR [address] [address] 05/26/2025 10:[address] [facility] [address] F275 [facility] [address] [phone] Zeynep Richmond, [address] [address] 06/02/2025 10:[address] [facility] [address] F275 [facility] [address] [phone] Zeynep Richmond, SPA SUPERVISOR [address] [place] [address] 06/13/2025 1:00 PM CSTOffice Visit [facility] [place] 6363 [facility] 103 [place] [phone] Reina Gonzalez MD 2270 [facility] 200 [place], [place] [phone] Bart De PA-C 5783 [facility] 103 [place] [phone] 06/15/2025 9:00 AM CSTAppointment M [facility] 97427 [facility] 160 [place] [phone] Kei Rodas MD [address] [place] [address] 06/15/2025 10:00 AM CSTAppointment M [facility] 32977 [facility] 160 [place] [phone] Kei Rodas MD [address] [place] [address] [phone] 06/20/2025 11:00 AM CSTOffice Visit M [facility] Vascular [address] 3rd [place] [phone] Kei Rodas MD [address] [place] [address] 07/17/2025 11:30 AM CDTVirtual Visit M [address] [phone] Reina Gonzalez MD [address] [place] [address] Fan Mullins PA-C [address] [place] [address] 07/20/2025 11:10 AM CDTOffice Visit M [address] 200 [place] [phone] Reina Gonzalez MD [address] [place] [address] 200 [place] [address] 08/28/2025 12:00 PM CDTAncillary Procedure [facility] [place] 909 [facility] 1st [place] [phone] Domo Hammonds MD 500 [place], [place] 6064[address] 08/28/2025 1:00 PM CDTOffice Visit [facility] [address] [phone] Domo Hammonds MD 500 [place], [place] [address] 09/04/2025 11:30 AM CDTVirtual Visit [facility] [address] [place] [phone] Lili Michael MD [address] [facility] [address] AFSHIN 200 [place], [place] 8[address] 09/18/2025 11:40 AM CDTOffice Visit [facility] Heart [place] 0[address]259 [place] [phone] Melissa Townsend NP 420 [facility] 508 [place], [place] 2308[address] documented as of this encounter Visit Diagnoses Diagnosis Gastroesophageal reflux disease, unspecified whether esophagitis present- Primary Heart burn Heartburn Epigastric pain Abdominal pain, epigastric Esophageal dysphagia Dysphagia, pharyngoesophageal phase Nausea Nausea alone Weight loss Loss of weight BMI 28.0-28.9,adult Body Mass Index 28.0-28.9, adult Constipation, unspecified constipation type Loss of teeth due to periodontal disease, unspecified edentulism class Anorexia nervosa (H) Anorexia nervosa Age related osteoporosis, unspecified pathological fracture presence History of vertebral compression fracture Vitamin D deficiency Unspecified vitamin D deficiency Stage 3 chronic kidney disease, unspecified whether stage 3a or 3b CKD (H) Coronary artery disease involving coronary bypass graft of [place] heart with other forms of angina pectoris Status post three vessel coronary artery bypass Postsurgical aortocoronary bypass status Ischemic cardiomyopathy Other specified forms of chronic ischemic heart disease Hyperlipidemia, unspecified hyperlipidemia type Palpitations PAD (peripheral artery disease) Unspecified disorders of arteries and arterioles Emphysema, unspecified (H) Former smoker Personal history of tobacco use, presenting hazards to health History of ischemic colitis Diverticular disease of colon Diverticulosis of colon (without mention of hemorrhage) Hemorrhoids, unspecified hemorrhoid type History of adenomatous polyp of colon Personal history of colonic polyps Mixed stress and urge urinary incontinence Mixed incontinence urge and stress (male)(female) Dystrophic nail Other specified disease of nail Seborrheic keratoses Akathisia Abnormal involuntary movements Bruxism Other specified psychophysiological malfunction Schizoaffective disorder, unspecified type (H) Bipolar affective disorder in remission Generalized anxiety disorder Posttraumatic stress disorder Obsessive-compulsive disorder, unspecified type Sedative, hypnotic or anxiolytic dependence (H) Health care maintenance Unspecified general medical examination documented in this encounter Additional Health Concerns AssessmentNoted TimePHQ-9 Depression Total Score: 12106/08/2024 10:02 AM THREADER documented as of this encounter Care Teams Team MemberRelationshipSpecialtyStart DateEnd Date Reina Gonzalez MD [address] [phone] PCP - GeneralFamily Dqbirjjx34/15/23 Digna Vega APRN QUICK MIXER OPERATOR [address] [place] [address] [phone] Nurse PractitionerNurse Practitioner Psych/Mental Health05/30/16 Joseluis Carrillo MD [address] [place] [address] [phone] Family Medicine - Sports Medicine11/13/16 Zeynep Richmond, [facility] [address] [place] [place] [address] [phone] Social WorkerSocial Worker - Clinical06/15/20 Reina Gonzalez MD 2278 [facility] 200 [place], [place] [phone] Assigned PCP01/18/22 Fan Mullins PA-C [address] [place] [address] Physician AssistantGastroenterology09/25/22 Portia Ventura APRN QUICK MIXER OPERATOR 909 [place], [place] 014806 Nurse PractitionerCardiology10/22/22 Zeynep Richmond [facility] 2450 [place], [place] 393694 Assigned Behavioral Health Provider08/25/23 Denae Gomez DPM, Podiatry/Foot and Ankle Surgery 91886 [facility] 300 [place], [place] 171377 Assigned Musculoskeletal Provider11/24/23 Sky Lynne PA-C 6545 [facility] 450 [place] [address] Assigned Neuroscience Provider01/25/24 Yudi Manuel PA-C [address] [facility] 377 [place], [place] [address] Physician AssistantUrology1 Domo Hammonds MD [address] [place] [address] [phone] PulmonologistPulmonary Disease07/18/24 Funmilayo Ferrara APRN QUICK MIXER OPERATOR 909 [place] [address] Assigned Surgical Provider09/23/24 Kei Rodas MD [address] [place] [address] Assigned Heart and Vascular Provider12/24/24 Lili Michael MD 303 E [facility] AFSHIN 200 [place] [address] HospitalistEndocrinology, Diabetes, and Ohsqzzmfoq86/10/25 Fan Mullins, PAJeffC [address] [place], [place] [address] Physician BvcxlptjcCrdtowvyeebjnvym24/13/25 Domo Hammonds MD 500 [place], [place] 313115 Assigned Pulmonology Ahrrhnrz61/23/25documented as of this encounter
--- OUTSIDE RECORDS SUMMARY | 2025-04-21 10:00 | XMS_ITS | Encounter Summary ---
Author Organization [place] Address [address] [place] [address] Care Team Providers Care Lease Broker Name Role Phone Digna Vega NINA COAT JOINER LOCKSTITCH Unavailable Joseluis Carrillo MD Unavailable Zeynep Richmond DIGITAL CARTOGRAPHER Unavailable Reina Gonzalez MD Unavailable Fan MullinsC Unavailable [phone] Portia Ventura JAVA J2EE TECHNICAL LEAD COAT JOINER LOCKSTITCH Unavailable Reina Gonzalez MD Primary Care Provider Zeynep Richmond DIGITAL CARTOGRAPHER Unavailable Denae Gomez DPM, Podiatry /Foot and Ankle Surgery Unavailable Sky Lynne PA-C Unavailable [phone] Yudi Manuel PA-C Unavailable Domo Hammonds MD Unavailable Funmilayo Ferrara APRN COAT JOINER LOCKSTITCH Unavailable Kei Rodas MD Unavailable Lili Michael MD Unavailable Fan Mullins PA-C Unavailable [phone] Domo Hammonds MD Unavailable Encounter Details DateTypeDepartmentCare Team (Latest Contact Info)Pguyxswbznd74/19/2025 10:00 AM CSTVirtual Visit [facility] Mental Health & Addiction [place] [phone] [phone] Zeynep Richmond, [facility] 2450 [place], [place] 880[address] Posttraumatic stress disorder (Primary Dx); Schizoaffective disorder, unspecified type (H); Obsessive-compulsive disorder, unspecified type; Eating disorder, unspecified type Social History Tobacco UseTypesPacks/DayYears UsedDateSmoking Tobacco: MgjemaUqedmcytzi171.9 05/04/1971 - 03/30/2014OtherPassive Smoke Exposure: NeverSmokeless Tobacco: Former Comments:Patient stated- she is currently smoking E-cig daily. Alcohol UseStandard Drinks/WeekCommentsYes0 (1 standard drink = 0.6 oz pure alcohol)1 small cider every 2 weeksSocial Connection and Isolation PanelAnswer Date RecordedFrequency of Communication with Friends and FamilyNot on file 07/11/2024How often do you get together with friends or relatives?More than three times a week07/11/2024ttends Yazidi ServicesNot on file07/11/2024 Active Member of Clubs or OrganizationsNot on file07/11/2024ttends Club or Organization MeetingsNot on file07/11/2024Marital StatusNot on file07/11/2024 PHQ-2AnswerDate RecordedPHQ-2 Zxkar03606/22/2024[facility] [place] [facility] Occup[facility] - Occupational Stress QuestionnaireAnswerDate [...] in an abandoned building, in an overnight skilled nursing, or couch-surfing.)Yes04/07/2025re you worried about losing your [...] CommentsNoSex and Gender InformationValueDate RecordedSex Assigned at WteusMmxdph55/06/2020 7:20 AM CSTLegal KxyVgrnhv14/04/2012 3:20 AM CSTGender DxiimikiQdddgq65/06/2020 7:20 AM CSTSexual PkdxcudqlzmRezkuyex58/06/2020 7:20 AM CSTdocumented as of this encounter Progress Notes * RuthieZeynep Navarro, [facility] - 04/21/2025 10:00 AM CST OUTPATIENT PSYCHOTHERAPY PROGRESS NOTE Client Name: Dinah Alegre Date of : 1960 (65 year old) Time of Service: 10:02 am to 10:52 am (50 minutes) Service Type(s): 95941 psychotherapy (38-52 min. with patient and/or family) Type of service: Telehealth Individual Psychotherapy Reason for Telemedicine Visit: severe anxiety related to driving, Reina also lives significant distance from clinic. Mode of transmission: Secure real time Stkr.it telecommunication system (ShareDesk) Location of originating and distant sites: Originating [...] voice and not feeling scared. Subjective: Reina continues to have days of experiencing nausea and is awaiting consultation with lay health advocate in June. Reina shares her dreams/nightmares have decreased at night. She reports high levels of daily anxiety. Treatment: -Provided reflective listening, unconditional positive regard, and validation as Reina shared current concerns and provided updates from past week. Modalities utilized in session included CBT. -Reina shared fear and thoughts that if she gets better or well she will lose support of therapist and/or medication provider. Briefly reflected on thought, which appeared to come from attempts to decrease therapy to every other week. Therapist named the progress Reina has made and the on-going trauma and anxiety work that can continue, which could continue to take some time. Reina named the importance of the work she has done with her team in the clinic. -Reina named some of the anxiety and stress occurring in the home related to anticipating the arrival of more babies. Reina is very excited and also recognizes the stress of her son and daughter in law. Reflected on how this may impact relationships and communication patterns. -Spent time identifying coping strategies for the upcoming holidays. Reina will be spending severaldays at Zachery's mother's home with extended family members. Identifies potential areas of anxiety and strategies to manage, including asking Zachery what to expect, naming people she may know and planning to spend time near them, reminding self the extended family are not there to see her and will not pay much attention to her. -Prepared for next accelerated resolution therapy session. Reina reported feeling calmer after lastART session, but continues to decline to take showers. Therapist reflected on possibility of addressing underlying trauma and utilized metaphor as example for why this may be most helpful approach. Reina did not share medication changes at [...] was able to take a trip to [place] to see her son and daughter [...] Plan review due: 05/24/2025 KADY Kumar (Patty), [facility] Rear Admiral [facility], 2nd floor [address], [address] [place] [address] Answers submitted by the patient for this visit: Adult Psychotherapy on 04/21/2025 10:00 AM with Zeynep Richmond Patient Health Questionnaire (Submitted on 04/20/2025) If you checked off any problems, how difficult have these problems made it for you to do your work,take care of things at home, or get along with other people?: Very difficult PHQ9 TOTAL SCORE: 13 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 documented in this encounter Plan of Treatment DateTypeDepartmentCare Team (Latest Contact Info)Uewbwudfqry70/09/2026 10:00 AM CSTVirtual Visit [facility] & Addiction [address] AFSHIN F275 [facility]2 [address] [phone] Zeynep Richmond, [address] [phone] 05/19/2025 10:00 AM CSTVirtual Visit [facility] Mental [facility] & Addiction [address] AF[place] F275 [facility]2 [address] [phone] Zeynep Richmond, [address] 500524 05/22/2025 10:00 AM CSTVirtual Visit [facility] Mental [facility] & Addiction [address] [place] F275 [facility] [address] [phone] Digna Vega, NINA [address] 837904 05/26/2025 10:00 AM CSTVirtual Visit [facility] Mental [facility] & Addiction [address] [place] F275 [address] [phone] Zeynep Richmond, [address] [address] 06/02/2025 10:00 AM CSTVirtual Visit [facility] & Addiction [address] F275 [address] [phone] Zeynep Richmond, [address] [address] 06/13/2025 1:00 PM CSTOffice Visit [facility] [place] 6363 [facility] 103 [place] [phone] Reina Gonzalez MD 2270 [facility] 200 [place] [address] Bart De PA-C 6363 [facility] 103 [place] [address] 06/15/2025 9:00 AM CSTAppointment [facility] 85307 [facility] [address] [place] [phone] Kei Rodas MD [address] [place] [address] 06/15/2025 10:00 AM CSTAppointment [facility] Imaging [address] [place] [phone] Kei Rodas MD [address] [place] [address] 005355 06/20/2025 11:00 AM CSTOffice Visit [facility] Vascular [address] 3rd [place] [phone] Kei Rodas MD [address] [place] [address] 07/17/2025 11:30 AM CDTVirtual Visit [facility] [address] [place] [phone] Reina Gonzalez MD 2270 [facility] AFSHIN 200 [place] [address] Fan Mullins PA-C [address] [place] [address] 07/20/2025 11:10 AM CDTOffice Visit [facility] 2270 [facility] [address] [place] [phone] Reina Gonzalez MD [address] [place] [address] 200 [place] [address] 08/28/2025 12:00 PM CDTAncillary Procedure [facility] Imaging Center CT [address] 1st [place] [phone] Domo Hammonds MD [address] [place] [address] 08/28/2025 1:00 PM CDTOffice Visit [facility] [address] [phone] Domo Hammonds MD [address] [place] [address] 09/04/2025 11:30 AM CDTVirtual Visit M [facility] [address] [place] [phone] Lili Michael MD [address] [place] 200 [place] [address] 09/18/2025 11:40 AM CDTOffice Visit M [facility] Heart [facility] 909 [facility] [place] [address] Melissa Townsend NP 420 [facility] 508 [place], [place] 730185 documented as of this encounter Visit Diagnoses Diagnosis Posttraumatic stress disorder- Primary Schizoaffective disorder, unspecified type (H) Obsessive-compulsive disorder, unspecified type Eating disorder, unspecified type documented in this encounter Additional Health Concerns AssessmentNoted TimePHQ-9 Depression Total Score: 13106/21/2024 10:59 AM 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 documented as of this encounter Care Teams Team MemberRelationshipSpecialtyStart DateEnd Date Reina Gonzalez MD 2270 [facility] 200 [place], [place] [phone] PCP - GeneralFamily Kbulmawg98/15/23 Digna Vega APRN COAT JOINER LOCKSTITCH [address] [place] [address] [phone] Nurse PractitionerNurse Practitioner Psych/Mental Health05/30/16 Joseluis Carrillo MD [address] [place] [address] [phone] Family Medicine - Sports Medicine11/13/16 Zeynep Richmond, [facility] [address] [place] [address] [phone] Social WorkerSocial Worker - Clinical06/15/20 Reina Gonzalez MD 2270 [facility] 200 [place], [place] [phone] Assigned PCP01/18/22 Fan Mullins PA-C [address] [facility] [place] [address] Physician AssistantGastroenterology09/25/22 Portia Ventura APRN COAT JOINER LOCKSTITCH 909 [place], [place] 0[address]856 Nurse PractitionerCardiology10/22/22 Zeynep Richmond [facility] 2450 [place], [place] 600[address] Assigned Behavioral Health Provider08/25/23 Denae Gomez DPM, Podiatry/Foot and Ankle Surgery 79788 [facility] 300 [place], [place] [phone] Assigned Musculoskeletal Provider11/24/23 Sky Lynne PA-C 6545 [facility] 450 [place] [address] Assigned Neuroscience Provider01/25/24 Yudi Manuel PA-C [address] [facility] 377 [place], [place] [phone] Physician AssistantUrology1 Domo Hammonds MD [address] [place] [address] 297605 PulmonologistPulmonary Disease07/18/24 Funmilayo Ferrara APRN COAT JOINER LOCKSTITCH 909 [place] [address] Assigned Surgical Provider09/23/24 Kei Rodas MD [address] [place] [address] Assigned Heart and Vascular Provider12/24/24 Lili Michael MD [address] E [facility] AFSHIN 200 [place] [address] HospitalistEndocrinology, Diabetes, and Hhojeivhkm79/10/25 Fan Mullins, PA-C [address] [place] [address] Physician EumuiskjoYahelcvnyxycdamg08/13/25 Domo Hammonds MD [address] [place] [address] 023255 Assigned Pulmonology Aqmtsbje74/23/25documented as of this encounter
--- OUTSIDE RECORDS SUMMARY | 2025-04-24 10:30 | XMS_ITS | Encounter Summary ---
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 [address] [phone] Assigned Heart and Vascular Provider12/24/24 Lili Michael MD [address] [facility] [address] 200 [place], [place] 86[address]27 HospitalistEndocrinology, Diabetes, and Lvoyvpggta39/10/25 Fan Mullins PAJeffC [address] [place] [address] Physician BptzksvoeZprnhvdpwnnemaic20/13/25 Domo Hammonds MD [address] [place] [address] Assigned Pulmonology Phhbsfbs06/23/25documented as of this encounter
--- NOTE | 2025-04-30 22:55 | ED.GENADULT ---
HPI - General Adult General Time Seen by Provider: 23:06 Date Seen: 04/30/25 Chief complaint: Back Injury/Pain Stated complaint: Back pain Time Seen by Provider: 04/30/25 22:55 Source: patient, EMS, RN notes reviewed and old records reviewed Mode of arrival: ambulatory Limitations: no limitations History of Present Illness HPI narrative: 65-year-old female who comes today with left lateral chest pain. Patient got up tonight and experienced sharp left lateral chest pain that radiates to the front. She says the pain in the front feels more like ?icy hot?. No shortness of breath, no nausea vomiting, has little bit of nasal congestion. Took some aspirin at home and called EMS. No lower extremity swelling. Denies recent dyspnea on exertion or exercise intolerance. Related Data Home Medications ?Medication ?Instructions ?Recorded ?Confirmed alendronate 70 mg tablet 70 mg PO QWEEK 02/15/23 04/30/25 aspirin 81 mg tablet,delayed 81 mg PO DAILY 02/15/23 04/30/25 release (Adult Aspirin Regimen) atorvastatin 40 mg tablet 80 mg PO DAILY 02/15/23 04/30/25 clonazepam 1 mg tablet 1 mg PO DAILY PRN 02/15/23 04/30/25 lisinopril 2.5 mg tablet 2.5 mg PO DAILY 02/15/23 04/30/25 metoprolol succinate 25 mg 12.5 mg PO DAILY 02/15/23 04/30/25 tablet,extended release 24 hr mirtazapine 45 mg tablet 45 mg PO DAILY 02/15/23 04/30/25 quetiapine 50 mg tablet 50 mg PO HS PRN 02/15/23 04/30/25 atorvastatin 80 mg tablet 80 mg PO DAILY 03/17/24 01/15/25 clopidogrel 75 mg tablet 75 mg PO DAILY 03/17/24 04/30/25 evolocumab 140 mg/mL subcutaneous 140 mg subcut Q2W 03/17/24 04/30/25 pen injector (Cosme Mandel) fluticasone fur. 100 mcg-umeclid 1 ea inhalation DAILY 03/17/24 04/30/25 62.5 mcg-vilant 25 mcg inhalat.powder (Trelegy Ellipta) omeprazole 40 mg capsule,delayed 40 mg PO DAILY 03/17/24 04/30/25 release ziprasidone HCl 40 mg capsule mg PO 03/17/24 01/15/25 ziprasidone HCl 60 mg capsule 60 mg PO HS 05/20/24 04/30/25 bisacodyl 5 mg tablet,delayed mg PO 04/30/25 release (Laxative (bisacodyl)) docusate sodium 100 mg capsule 100 mg PO BID PRN constipation 04/30/25 04/30/25 nitrofurantoin 1 cap PO BID 04/30/25 04/30/25 monohydrate/macrocrystals 100 mg capsule ondansetron 4 mg disintegrating 4 mg PO Q8H PRN nausea/vomiting 04/30/25 04/30/25 tablet Previous Rx's ?Medication ?Instructions ?Recorded albuterol sulfate 90 mcg/actuation 2 puff inhalation Q6H PRN 05/22/23 aerosol inhaler shortness of breath or wheezing #6.7 grams albuterol sulfate 90 mcg/actuation 2 puff inhalation Q4-6H PRN 01/15/25 aerosol inhaler shortness of breath or wheezing #8.5 grams Allergies Allergy/AdvReac Type Severity Reaction Status Date / Time Mnbknbn-NPP-GgZ Reductase Allergy Verified 05/01/25 01:09 Inhibitor oxycarbazine Allergy Uncoded 01/15/25 08:28 [facility] Medical History CAD (coronary artery disease) ?I25.10 - Atherosclerotic heart disease of [place] coronary artery without angina pectoris (ICD-10) Anemia ?D64.9 - Anemia, unspecified (ICD-10) COPD (chronic obstructive pulmonary disease) ?J44.9 - Chronic obstructive pulmonary disease, unspecified (ICD-10) Stroke ?I63.9 - Cerebral infarction, unspecified (ICD-10) Depression ?F32.A - Depression, unspecified (ICD-10) Pulmonary emphysema ?J43.9 - Emphysema, unspecified (ICD-10) Hyperlipidemia ?E78.5 - Hyperlipidemia, unspecified (ICD-10) OCD (obsessive compulsive disorder) ?F42.9 - Obsessive-compulsive disorder, unspecified (ICD-10) PTSD (post-traumatic stress disorder) ?F43.10 - Post-traumatic stress disorder, unspecified (ICD-10) Anxiety ?F41.9 - Anxiety disorder, unspecified (ICD-10) Stage 3 chronic kidney disease ?N18.30 - Chronic kidney disease, stage 3 unspecified (ICD-10) Schizoaffective disorder ?F25.9 - Schizoaffective disorder, unspecified (ICD-10) Surgical History S/P triple vessel bypass ?Z95.1 - Presence of aortocoronary bypass graft (ICD-10) H/O heart artery stent ?Z95.5 - Presence of coronary angioplasty implant and graft (ICD-10) History of cardiac catheterization ?Z98.890 - Other specified postprocedural states (ICD-10) Social History Smoking Status: Never smoker Do you use any of these nicotine containing products: None How often do you have a drink containing alcohol: monthly or less How often do you have six or more drinks on one occasion: Never AUDIT-C Alcohol total score: 1 Non-prescribed substance use: denies use Exam Narrative: Exam Narrative: General: Well-developed and well-nourished, no acute distress Head: Atraumatic and normocephalic Eyes: Pupils are equal reactive, extraocular motions intact, conjunctiva clear ENT: External nose and ears are normal, posterior pharynx without erythema or exudate Neck: No midline cervical tenderness, full spontaneous range of motion the neck, trachea midline, no adenopathy Heart: Regular rate and rhythm no murmurs or thrills. Point tenderness of the left posterior lateral chest wall which reproduces symptoms. Lungs: Clear to auscultation bilaterally without wheezes or crackles Abdomen: Soft, nontender, nondistended with active bowel sounds Musculoskeletal: No tenderness, deformity, or edema Neurologic: Awake, alert, and oriented x3, no gross focal neurologic deficits, cranial nerves intact as tested Psych: Mood and affect are appropriate Skin: No rashes Const: Vital Signs, click to edit/add: Vital Signs - 24 hr 04/30/25 23:00 04/30/25 23:00 04/30/25 23:15 Temperature 96.9 F L Pulse Rate Pulse Rate [Right Pulse Oximeter] 68 Respiratory Rate 21 Blood Pressure Blood Pressure [Ri ght Upper Arm] 110/56 L Pulse Oximetry 88 88 88 Oxygen Delivery Me thod Nasal Cannula Room Air Oxygen Flow Rate 2 05/01/25 00:45 05/01/25 00:57 05/01/25 01:01 Temperature 98.1 F Pulse Rate 58 L 61 58 L Pulse Rate [Right Pulse Oximeter] Respiratory Rate 19 20 17 Blood Pressure 99/56 L 99/56 L 103/56 L Blood Pressure [Ri ght Upper Arm] Pulse Oximetry 95 93 90 Oxygen Delivery Me thod Oxygen Flow Rate 05/01/25 01:13 05/01/25 01:32 Temperature Pulse Rate 65 Pulse Rate [Right Pulse Oximeter] Respiratory Rate 12 Blood Pressure 89/54 L Blood Pressure [Ri ght Upper Arm] Pulse Oximetry 93 89 Oxygen Delivery Me thod Room Air Oxygen Flow Rate Course Course ED Course: Additional records reviewed: Prior cardiac MRI November 2023 with ejection fraction 43% and right ventricular ejection fraction 48% with no change from prior study of 2020 and did redemonstrate ischemic cardiomyopathy. Additional history from: Care impacted by: Testing considered but not performed: See ED course Disposition: Patient with history of 3 vessel bypass but also history of recurrent chest pain, heartburn, anxiety presents today with chest pain. Pain is left posterolateral chest and there is an area of point tenderness which reproduces her complaint. Reviewed EKG from EMS which does not have acute ischemic changes. Labs are ordered although symptoms certainly are atypical for ACS, consider other causes of chest pain including musculoskeletal, pneumothorax, pneumonia. Did consider shingles as well but no rash present. Oxygen saturations little low, cannot exclude pulmonary embolism and so D-dimer is ordered. Reevaluation(s) Time of Reevaluation #1: 00:26 Reevaluation #1: EKG independently interpreted by me performed at 11:49 p.m. demonstrates sinus rhythm with first-degree AV block and PACs, nonspecific ST changes, no acute ischemic changes. Compared to prior of March 2024 no change Labs in the panel interpreted by me with hemoglobin 11.8, basic panel reassuring, BNP 212, hepatic panel and lipase normal. Updated patient with plan for repeat troponin at 1:50 a.m. and discharge if stable. Initial troponin 5.6. Vital Signs Vital signs: Initial Vital Signs Respiratory Effort Normal 04/30/25 23:00 Respiratory Depth Shallow 04/30/25 23:00 Respiratory Pattern Normal 04/30/25 23:00 Pulse Oximetry 88 04/30/25 23:00 Oxygen Delivery Method Nasal Cannula 04/30/25 23:00 Oxygen Flow Rate 2 04/30/25 23:00 Vital Signs Pulse Oximetry 88 04/30/25 23:00 Oxygen Delivery Method Nasal Cannula 04/30/25 23:00 Oxygen Flow Rate 2 04/30/25 23:00 Temperature 98.1 F 05/01/25 01:01 Pulse Rate 65 05/01/25 01:32 Respiratory Rate 12 05/01/25 01:32 Blood Pressure 89/54 L 05/01/25 01:32 Pulse Oximetry 89 05/01/25 01:32 Oxygen Delivery Method Room Air 05/01/25 01:13 Oxygen Flow Rate 2 04/30/25 23:00 Medications Administered Medications: Discontinued Medications Generic Name Dose Route Start Last Admin Trade Name Freq PRN Reason Stop Dose Admin Albuterol/Ipratropium 1 neb 05/01/25 00:36 05/01/25 01:06 Iprat-Albut 0.5-2.5 Mg/3 Ml Neb IH 05/01/25 00:37 1 neb ONCE ONE Administration Medical Decision Making Lab Data Labs: Lab Results 04/30/25 Range/Units 23:50 WBC 8.92 (4.50-11.00) K/uL RBC 3.94 L (4.00-5.20) m/uL Hgb 11.8 L (12.0-16.0) gm/dL Hct 38.7 (33.0-51.0) % MCV 98 (80-100) fL MCH 30 (26-34) pg MCHC 31 L (32-36) gm/dL RDW Coeff of Jerome 14.1 (11.5-15.5) % Plt Count 260 (140-440) K/uL Neut % (Auto) 70.4 (42.0-72.0) % Lymph % (Auto) 19.2 L (20-44) % Dane % (Auto) 7.4 (0.0-11.0) % Eos % (Auto) 2.0 (0.0-7.0) % Baso % (Auto) 0.7 (0.0-3.0) % Neut # (Auto) 6.28 (1.7-7.0) K/uL Lymph # (Auto) 1.70 (0.90-2.90) K/uL Dane # (Auto) 0.70 (0.00-0.90) K/UL Eos # (Auto) 0.18 (0.00-0.50) K/uL Baso # (Auto) 0.06 (0.00-0.30) K/uL Abs Immat Gran (auto) 0.03 (0.00-0.30) K/uL Imm/Tot Granulo (auto) 0.3 % D-Dimer Quant (PE/DVT) 0.30 (0.00-0.50) ug/ml Sodium 138 (135-149) mmol/L Potassium 4.5 (3.6-5.1) mmol/L Chloride 105 (96-114) mmol/L Carbon Dioxide 28 (20-32) mmol/L Anion Gap 5 L (7-15) mEq/L BUN 25 (7-30) mg/dL Creatinine 1.5 (0.5-1.5) mg/dL Estimated Creat Clear 35.00 Estimated GFR 38 ml/min Glucose 109 (60-115) mg/dL Calcium 9.0 (8.4-10.6) mg/dL Magnesium 2.2 (1.5-2.6) mg/dL Total Bilirubin 0.2 (0.1-1.5) mg/dL Direct Bilirubin 0.2 (0.0-0.5) mg/dL AST 26 (12-35) U/L ALT 22 (4-35) U/L Alkaline Phosphatase 103 (40-150) U/L POC Troponin I High Sensi 5.6 (2.9-13.0) pg/mL NT-Pro-B Natriuret Pep 212 (See Note) pg/mL Total Protein 6.3 (6.0-8.3) g/dL Albumin 3.8 (3.3-5.0) g/dL Lipase 66 (23-300) U/L Discharge Plan Discharge Clinical Impression: Acute chest wall pain Patient Disposition: Home, Self-Care Condition: Stable Instructions: Chest Wall Pain (ED) Additional Instructions: Take Tylenol and ibuprofen as needed for pain Applied Lidoderm patch or Aspercream patch to area for pain Activity Level: Activity as Tolerated Discharge Diet: Regular Prescriptions: No Action albuterol sulfate 90 mcg/actuation HFA aerosol inhaler 2 puff inhalation Q6H PRN (Reason: shortness of breath or wheezing) Qty: 6.7 0RF ziprasidone HCl 60 mg capsule 60 mg PO HS Patient Comments: TAKE 1 CAPSULE (60 MG) BY MOUTH DAILY. WITH DINNER, CONTINUE 40MG CAP WITH BREAKFAST albuterol sulfate 90 mcg/actuation HFA aerosol inhaler 2 puff inhalation Q4-6H PRN (Reason: shortness of breath or wheezing) Qty: 8.5 0RF docusate sodium 100 mg capsule 100 mg PO BID PRN (Reason: constipation) bisacodyl [Laxative (bisacodyl)] 5 mg tablet,delayed release (DR/EC) PO ondansetron 4 mg tablet,disintegrating 4 mg PO Q8H PRN (Reason: nausea/vomiting) nitrofurantoin monohyd/m-cryst 100 mg capsule 1 cap PO BID lisinopril 2.5 mg tablet 2.5 mg PO DAILY atorvastatin 40 mg tablet 80 mg PO DAILY alendronate 70 mg tablet 70 mg PO QWEEK aspirin [Adult Aspirin Regimen] 81 mg tablet,delayed release (DR/EC) 81 mg PO DAILY metoprolol succinate 25 mg tablet extended release 24 hr 12.5 mg PO DAILY clonazepam 1 mg tablet 1 mg PO DAILY PRN mirtazapine 45 mg tablet 45 mg PO DAILY quetiapine 50 mg tablet 50 mg PO HS PRN atorvastatin 80 mg tablet 80 mg PO DAILY clopidogrel 75 mg tablet 75 mg PO DAILY omeprazole 40 mg capsule,delayed release(DR/EC) 40 mg PO DAILY ziprasidone HCl 40 mg capsule PO Repatha SureClick 140 mg/mL pen injector 140 mg subcut Q2W Trelegy Ellipta 100-62.5-25 mcg blister with device 1 ea INHALATION DAILY Follow Up/Referrals: Provider,Not a Local [Primary Care Provider, Family Practice] Stand Alone Forms: [facility] Info Instructions
--- OUTSIDE RECORDS SUMMARY | 2025-04-30 22:56 | XMS_ITS | Encounter Summary ---
Author Organization [facility] Address [address] [place] [address] Care Team Providers Care Tool Machine Setup Operator Name Role Phone Digna Vega NINA LOCK INSTALLER Unavailable Joseluis Carrillo MD Unavailable Zeynep Richmond WASTEWATER MANAGER Unavailable Reina Gonzalez MD Unavailable Fan MullinsC Unavailable [phone] Portia Ventura TREASURY CONSULTANT LOCK INSTALLER Unavailable Reina Gonzalez MD Primary Care Provider Zeynep Richmond WASTEWATER MANAGER Unavailable Denae Gomez DPM, Podiatry /Foot and Ankle Surgery Unavailable Sky Lynne PA-C Unavailable [phone] Yudi Manuel PA-C Unavailable Domo Hammonds MD Unavailable Funmilayo Ferrara APRN LOCK INSTALLER Unavailable Kei Rodas MD Unavailable Lili Michael MD Unavailable Fan Mullins PA-C Unavailable Domo Hammonds MD Unavailable Encounter Details DateTypeDepartmentCare Team (Latest Contact Info)Dswqtwgfqjj91/07/2025Travel Social History Tobacco UseTypesPacks/DayYears UsedDateSmoking Tobacco: CkumjzIkrotxyiaz063.9 05/04/1971 - 03/30/2014OtherPassive Smoke Exposure: NeverSmokeless Tobacco: Former Comments:Patient stated- she is currently smoking E-cig daily. Alcohol UseStandard Drinks/WeekCommentsYes0 (1 standard drink = 0.6 oz pure alcohol)1 small cider every 2 weeksSocial Connection and Isolation PanelAnswer Date RecordedFrequency of Communication with Friends and FamilyNot on file 07/11/2024How often do you get together with friends or relatives?More than three times a week07/11/2024ttends Hindu ServicesNot on file07/11/2024 Active Member of Clubs or OrganizationsNot on file07/11/2024ttends Club or Organization MeetingsNot on file07/11/2024Marital StatusNot on file07/11/2024 PHQ-2AnswerDate RecordedPHQ-2 Qgfji26406/08/2024[place] [facility] [facility] Occupational [facility] - Occupational Stress QuestionnaireAnswerDate [...] in an abandoned building, in an overnight longterm, or couch-surfing.)Yes04/07/2025re you worried about losing your [...] CommentsNoSex and Gender InformationValueDate RecordedSex Assigned at VqnyeWvsmbz26/06/2020 7:20 AM CSTLegal BjpLdnxaj72/04/2012 3:20 AM CSTGender ZlfxqxsnEaahzq21/06/2020 7:20 AM CSTSexual VmqzrsitaguHhydcaet58/06/2020 7:20 AM CSTdocumented as of this encounter Plan of Treatment DateTypeDepartmentCare Team (Latest Contact Info)Eiwuvachzzm60/09/2026 10:00 AM CSTVirtual Visit [facility] [place] [phone] [address] Zeynep Richmond, [facility] 15[address] [place] [address] 05/19/2025 10:00 AM CSTVirtual Visit [facility] Mental [facility] & Addiction [address] [place] F275 [facility] [phone] Zeynep Richmond, [address] [address] 05/22/2025 10:[address] [facility] & Addiction [address] [place] F275 [facility] [address] [phone] Digna Vega, TREASURY CONSULTANT LOCK INSTALLER [address] [place] [address] 765324 05/26/2025 10:[address] [facility] & Addiction [address] [facility] [phone] Zeynep Richmond, [address] 0914[address] 06/02/2025 10:[address] [facility] & Addiction [address] F275 [facility] [address] [phone] Zeynep Richmond, [address] [phone] 06/13/2025 1:00 PM CSTOffice Visit [facility] [place] [address] [address] Reina Gonzalez MD 2270 [facility] 200 [place], [place] [phone] Bart De PA-C 5663 [facility] 103 [place] [address] 06/15/2025 9:00 AM CSTAppointment M [facility] [address] [facility] [address] [place] [phone] Kei Rodas MD [address] [place] [address] 06/15/2025 10:00 AM CSTAppointment M [facility] [address] [facility] [address] [place] [phone] Kei Rodas MD [address] [place] [address] 06/20/2025 11:00 AM CSTOffice Visit [facility] Vascular [address] [place] [phone] Kei Rdoas MD [address] [place] [address] 07/17/2025 11:[address] [facility] [phone] [place] [address] [phone] Reina Gonzalez MD [address] [place] [address] 200 [place] [address] Fan Mullins PA-C [id number] [place] [address] 07/20/2025 11:10 AM CDTOffice Visit [address] 200 [place] [phone] Reina Gonzalez MD [address] [place] [address] 200 [place] [address] 08/28/2025 12:00 PM CDTAncillary Procedure [facility] [address] 1st [place] [phone] Domo Hammonds MD 500 [place], [place] [address] 08/28/2025 1:00 PM CDTOffice Visit [facility] [address] [phone] Domo Hammonds MD 500 [place], [place] 3[address] 09/04/2025 11:30 AM CDTVirtual Visit [facility] [address] [facility] [address] [place] [phone] Lili Michael MD [address] [facility] 200 [place], [place] [address] 09/18/2025 11:40 AM CDTOffice Visit [facility] [place] [address] [place] [phone] Melissa Townsend NP 420 [facility] 508 [place], [place] 8404[address] documented as of this encounter Visit Diagnoses Not on filedocumented in this encounter Additional Health Concerns AssessmentNoted TimePHQ-9 Depression Total Score: 12106/08/2024 10:02 AM KNIFE CHANGER documented as of this encounter Care Teams Team MemberRelationshipSpecialtyStart DateEnd Reina Winters MD 8050 [facility] 200 [place] [address] PCP - GeneralFamily Prhsvxli83/15/23 Digna Vega, NINA LOCK INSTALLER [address] [place] [address] 244704 Nurse PractitionerNurse Practitioner Psych/Mental Health05/30/16 Joseluis Carrillo MD [address] [place] [address] [phone] [facility] - Sports Medicine11/13/16 Zeynep Richmond, [facility] [address] [place] [address] [phone] Social WorkerSocial Worker - Clinical06/15/20 Reina Gonzalez MD [address] [phone] Assigned PCP01/18/22 Fan Mullins PA-C [address] [place] [address] Physician AssistantGastroenterology09/25/22 Portia Ventura TREASURY CONSULTANT LOCK INSTALLER 9 [place], [place] [address] Nurse PractitionerCardiology10/22/22 Zeynep Richmond, [facility] [address] [place] [address] [phone] Assigned Behavioral Health Provider08/25/23 Denae Gomez DPM, Podiatry/Foot and Ankle Surgery [address] [facility] [place] [place] [address] Assigned Musculoskeletal Provider11/24/23 Sky Lynne PA-C [address] [facility] [address] [place], [place] 0[address] Assigned Neuroscience Provider01/25/24 Yudi Manuel PA-C [address] [facility] 377 [place] [address] Physician AssistantUrology1 Domo Hammonds MD 500 [place] [address] PulmonologistPulmonary Disease07/18/24 Funmilayo Ferrara APRN LOCK INSTALLER 909 [place] [address] Assigned Surgical Provider09/23/24 Kei Rodas MD 909 [place], [place] 404305 Assigned Heart and Vascular Provider12/24/24 Lili Michael MD [address] [facility] 200 [place], [place] [phone] HospitalistEndocrinology, Diabetes, and Wzoudhhujs27/10/25 Fan Mullins PA-C [address] [place], [place] [address] Physician AfdiyuzufSohodmgtrwwdtahn68/13/25 Domo Hammonds MD [address] [place], [place] [address] Assigned Pulmonology Fgykmhvr34/23/25documented as of this encounter
--- OUTSIDE RECORDS SUMMARY | 2025-04-30 22:56 | XMS_ITS | Encounter Summary ---
Author Organization [place] Address [address] [place] [address] Care Team Providers Care Crane Ladle Person Name Role Phone Digna Vega NINA MAINTENANCE TEAM MEMBER Unavailable Joseluis Carrillo MD Unavailable Zeynep Richmond RECEIVING SPECIALIST Unavailable Reina Gonzalez MD Unavailable Fan MullinsC Unavailable [phone] Portia Ventura HIGH SCHOOL HISTORY TEACHER MAINTENANCE TEAM MEMBER Unavailable Reina Gonzalez MD Primary Care Provider Zeynep Richmond RECEIVING SPECIALIST Unavailable Denae Gomez DPM, Podiatry /Foot and Ankle Surgery Unavailable Sky Lynne PA-C Unavailable [phone] Yudi Manuel PA-C Unavailable Domo Hammonds MD Unavailable Funmilayo Ferrara APRN MAINTENANCE TEAM MEMBER Unavailable Kei Rodas MD Unavailable Lili Michael MD Unavailable Fan Mullins PA-C Unavailable [phone] Domo Hammonds MD Unavailable Reason for Visit * ReasonCommentsMedication Refill Encounter Details DateTypeDepartmentCare Team (Latest Contact Info)Gucypzjaltw60/18/2025Ref[facility] [address] [address] Portia Ventura, HIGH SCHOOL HISTORY TEACHER [address] [address] Medication Refill Social History Tobacco UseTypesPacks/DayYears UsedDateSmoking Tobacco: VyphoqJiykpxrhma512.9 05/04/1971 - 03/30/2014OtherPassive Smoke Exposure: NeverSmokeless Tobacco: Former Comments:Patient stated- she is currently smoking E-cig daily. Alcohol UseStandard Drinks/WeekCommentsYes0 (1 standard drink = 0.6 oz pure alcohol)1 small cider every 2 weeksSocial Connection and Isolation PanelAnswer Date RecordedFrequency of Communication with Friends and FamilyNot on file 07/11/2024How often do you get together with friends or relatives?More than three times a week07/11/2024ttends Christian ServicesNot on file07/11/2024 Active Member of Clubs or OrganizationsNot on file07/11/2024ttends Club or Organization MeetingsNot on file07/11/2024Marital StatusNot on file07/11/2024 PHQ-2AnswerDate RecordedPHQ-2 Akpva01806/22/2024[facility] [place] of Occupational Health - Occupational Stress QuestionnaireAnswerDate [...] in an abandoned building, in an overnight prison, or couch-surfing.)Yes04/07/2025re you worried about losing your [...] CommentsNoSex and Gender InformationValueDate RecordedSex Assigned at DxmrbZcfbzx30/06/2020 7:20 AM CSTLegal DwrHdvaca37/04/2012 3:20 AM CSTGender QeulqbyyWhwney10/06/2020 7:20 AM CSTSexual UfgqslizxwiBxlwscqw36/06/2020 7:20 AM CSTdocumented as of this encounter Miscellaneous Notes * Telephone Encounter - Rochelle Simmons RN - 04/24/2025 10:43 AM PLASTIC CUTTER Last Written Prescription: lisinopril (ZESTRIL) 2.5 MG tablet 90 tablet 3 05/05/2024 -- No Sig - Route: TAKE 1 TABLET BY MOUTH EVERY DAY - Oral Sent to pharmacy as: Lisinopril 2.5 MG Oral Tablet (ZESTRIL) Class: E-Prescribe Order: [id number] Last Visit Date: 09/15/24 Future Visit Date: 06/20/25 Refill decision: [x] Medication refilled per ???Medication Refill in Supervisor [place]?? policy. Request from pharmacy: Requested Prescriptions Pending Prescriptions Disp Refills lisinopril (ZESTRIL) 2.5 MG tablet [Pharmacy Med Name: LISINOPRIL 2.5 MG TABLET] 90 tablet 3 Sig: TAKE 1 TABLET BY MOUTH EVERY DAY DONA Inhibitors (Including Combos) Protocol Passed - 04/24/2025 10:43 AM Passed - Medication is active on med list and the sig matches. RN to manually verify dose and sig if red X/fail. If the protocol passes (green check), you do not need to verify med dose and sig. A prescription matches if they are the same clinical intention. For Example: once daily and every morning are the same. The protocol can not identify upper and lower case letters as matching and will fail. For Example: Take 1 tablet (50 mg) by mouth daily TAKE 1 TABLET (50 MG) BY MOUTH DAILY For all fails (red x), verify dose and sig. If the refill does match what is on file, the RN can still proceed to approve the refill request. If they do not match, route to the appropriate provider. Passed - Medication indicated for associated diagnosis Medication is associated with one or more of the following diagnoses: Chronic Kidney Disease (CKD) Coronary Artery Disease (CAD) Diabetes Heart Failure (HF) Hypertension (HTN) Nephropathy History of myocarditis Tachycardia induced cardiomyopathy STEMI (ST elevation myocardial infarction) Spontaneous dissection of coronary artery Status post percutaneous transluminal coronary angioplasty Cardiomyopathy Passed - Most recent GFR on file in the past 12 months Recent Labs Lab Test 03/10/25 1101 01/04/21 0807 08/08/20 1044 GFRESTIMATED 46* < > 51* GFRESTBLACK -- -- 60* < > = values in this interval not displayed. Passed - Most recent blood pressure is on file in the past 12 months BP Readings from Last 3 Encounters: 04/10/25 136/82 03/10/25 136/82 02/27/25 107/72 No data recorded Passed - Serum potassium on file in past 12 months Recent Labs Lab Test 03/10/25 1101 POTASSIUM 4.5 Passed - Recent (12 month) or future (90 days) visit with authorizing provider's specialty (provided they have been seen in the past 15 months) The patient must have completed an in-person or virtual visit within the past 12 months or has a future visit scheduled within the next 90 days with the authorizing provider???s specialty. Urgent care and e-visits do not qualify as an office visit for this protocol. Passed - Patient is age 18 or older Passed - No active on record Passed - No positive test within past 12 months TIC CUTTER documented in this encounter Plan of Treatment DateTypeDepartmentCare Team (Latest Contact Info)Fnaxjgcupsb29/09/2026 10:00 AM CSTVirtual Visit [facility] & Addiction [address] [place] [address] [facility] [address] [phone] Zeynep Richmond, [address] 7[address] 05/19/2025 10:00 AM CSTVirtual Visit [facility] Addiction [address] [place] [address] [facility] [address] [phone] Zeynep Richmond, [address] [address] 05/22/2025 10:00 AM CSTVirtual Visit [facility] [address] [place] [address] [facility] [address] [phone] Digna Vega, HIGH SCHOOL HISTORY TEACHER [address] [address] 05/26/2025 10:00 AM CSTVirtual Visit [facility] & Addiction [address] [place] [address] [phone] Zeynep Richmond, [address] [address] 06/02/2025 10:00 AM CSTVirtual Visit [facility] & Addiction [address] [place] [address] [phone] Zeynep Richmond, [address] [address] 06/13/2025 1:00 PM CSTOffice Visit [facility] Sleep Centers [address] [phone] Reina Gonzalez MD 9796 [facility] 200 [place], [place] [phone] Bart De PA-C 6363 [facility] 103 [place] [address] 06/15/2025 9:00 AM CSTAppointment [facility] Imaging [address] [place] [phone] Kei Rodas MD 909 [place] [address] 06/15/2025 10:00 AM CSTAppointment [facility] [address] [facility] [address] [place] [phone] Kei Rodas MD [address] [place] [address] 06/20/2025 11:00 AM CSTOffice Visit [facility] Vascular [address] 3rd [place] [phone] Kei Rodas MD [address] [place] [address] 2[address] 07/17/2025 11:30 AM CDTVirtual Visit [facility] [address] [place] [address] [phone] Reina Gonzalez MD [address] [place] [address] 200 [place] [address] Fan Mullins PA-C [address] [place] [address] 07/20/2025 11:10 AM CDTOffice Visit [facility] 2270 [facility] 200 [place] [phone] Reina Gonzalez MD [address] [place] [address] 200 [place] [address] 08/28/2025 12:00 PM CDTAncillary Procedure [facility] Imaging [facility] [address]st [place] [phone] Domo Hammonds MD [address] [place] [address] 08/28/2025 1:00 PM CDTOffice Visit [facility] [address] [phone] Domo Hammonds MD 500 [place], [place] 570085 09/04/2025 11:30 AM CDTVirtual Visit [facility] [address] [place] [address] Lili Michael MD [address] 200 [place], [place] [address]190 09/18/2025 11:40 AM CDTOffice Visit [facility] Heart [place] [address] [place] [phone] Melissa Townsend NP 420 [facility] 508 [place] [address] documented as of this encounter Visit Diagnoses Diagnosis Coronary artery disease involving k[place]ispel coronary artery of [place] heart, unspecified whether angina present documented in this encounter Additional Health Concerns AssessmentNoted TimePHQ-9 Depression Total Score: 13106/21/2024 10:59 AM PLASTIC CUTTER documented as of this encounter Care Teams Team MemberRelationshipSpecialtyStart DateEnd Date Reina Gonzalez MD 2270 [facility] 200 [place] [address] PCP - GeneralFamily Lorxyycq03/15/23 Digna Vega APRN MAINTENANCE TEAM MEMBER [address] [place] [address] Nurse PractitionerNurse Practitioner Psych/Mental Health05/30/16 Joseluis Carrillo MD [address] [place] [address] [phone] MDFamily Medicine - Sports Medicine11/13/16 Zeynep Richmond, RECEIVING SPECIALIST [address] [place] [address] 796184 Social WorkerSocial Worker - Clinical06/15/20 Reina Gonzalez MD 2270 [facility] 200 [place], [place] [phone] Assigned PCP01/18/22 Fan Mullins PA-C [address] [facility] [address] Physician AssistantGastroenterology09/25/22 Portia Ventura APRN MAINTENANCE TEAM MEMBER 9 [place], [place] 100616 Nurse PractitionerCardiology10/22/22 Zeynep Richmond, RECEIVING SPECIALIST [address] [place] [address] 966194 Assigned Behavioral Health Provider08/25/23 Denae Gomez DPM, Podiatry/Foot and Ankle Surgery [address] [facility] 300 [place], [place] 119607 Assigned Musculoskeletal Provider11/24/23 Sky Lynne PA-C 6545 [facility] 450 [place] [address] Assigned Neuroscience Provider01/25/24 Yudi Manuel PA-C [address] [facility] [address] [place] [address] Physician AssistantUrology1/12/26 Domo Hammonds MD 500 [place] [address] PulmonologistPulmonary Disease07/18/24 Funmilayo Ferrara APRN MAINTENANCE TEAM MEMBER 9 [place] [address] Assigned Surgical Provider09/23/24 Kei Rodas MD [address] [place] [address] Assigned Heart and Vascular Provider12/24/24 Lili Michael MD [address] [facility] [place] 200 [place], [place] 547197 HospitalistEndocrinology, Diabetes, and Jamsnmsymx55/10/25 Fan Mullins PAJeffC [address] [place], [place] [address] Physician AtcofjnbdSwngdcwfdonwxclp85/13/25 Domo Hammonds MD 500 [place], [place] 236775 Assigned Pulmonology Hwxiqqxc18/23/25documented as of this encounter
--- OUTSIDE RECORDS SUMMARY | 2025-04-30 22:57 | XMS_ITS | Encounter Summary ---
Author Organization [place] Address [address] [place] [address] Care Team Providers Care Beauty Operator Apprentice Name Role Phone Digna Vega NINA TRANSLATIONAL SPECIALIST Unavailable Joseluis Carrillo MD Unavailable Zeynep Richmond BLIND EYELETTER Unavailable Reina Gonzalez MD Unavailable Fan MullinsC Unavailable [phone] Portia Ventura SPLITTING MACHINE OPERATOR HELPER TRANSLATIONAL SPECIALIST Unavailable Reina Gonzalez MD Primary Care Provider Zeynep Richmond BLIND EYELETTER Unavailable Denae Gomez DPM, Podiatry /Foot and Ankle Surgery Unavailable Sky Lynne PA-C Unavailable [phone] Yudi Manuel PA-C Unavailable Domo Hammonds MD Unavailable Funmilayo Ferrara APRN TRANSLATIONAL SPECIALIST Unavailable Kei Rodas MD Unavailable Lili Michael MD Unavailable Fan Mullins PA-C Unavailable [phone] Domo Hammonds MD Unavailable Encounter Details DateTypeDepartmentCare Team (Latest Contact Info)Eursgvkditw87/16/2025[facility] Medical Advice [facility] [address] [place] [address] Reina Gonzalez MD [address] [place] 200 [place] [address] Social History Tobacco UseTypesPacks/DayYears UsedDateSmoking Tobacco: YtmqafLmgmuuknvp237.9 [birth year]/04/1971 - 03/30/2014OtherPassive Smoke Exposure: NeverSmokeless Tobacco: [...] on file07/11/2024Marital StatusNot on file07/11/2024 PHQ-2AnswerDate RecordedPHQ-2 Wxhxt664Finen[facility] [place] of Occupational Health - Occupational Stress QuestionnaireAnswerDate [...] in an abandoned building, in an overnight assisted, or couch-surfing.)Yes09/30/2024re you worried about losing your [...] CommentsNoSex and Gender InformationValueDate RecordedSex Assigned at YekfvTzweos11/06/2020 7:20 AM CSTLegal ZouNcghpd06/04/2012 3:20 AM CSTGender ZevbesrvTytzbx98/06/2020 7:20 AM CSTSexual WdqkoussukfTkrwhexd54/06/2020 7:20 AM CSTdocumented as of this encounter Miscellaneous Notes * Telephone Encounter - Reina Gonzalez MD - 04/03/2025 9:01 AM CST Referral for GI and endocrine placed both of these are consults will need to see GI first to get the egd /tube down the throat WIND INSTRUMENT REPAIRER * Telephone Encounter - Mercedes Segal - 04/03/2025 8:[address] Gonzalez, looping you back in. I have forwarded this message to the endo team a few times, but no follow up. Unsure if new referral should just be placed? WIND INSTRUMENT REPAIRER * Telephone Encounter - Mercedes Segal - 03/20/2025 11:31 AM CST Please assist with scheduling, referral is active placed 03/10. Patient states she was advised no referral on record- WIND INSTRUMENT REPAIRER documented in this encounter Plan of Treatment DateTypeDepartmentCare Team (Latest Contact Info)Slnfhckoeya98/09/2026 10:00 AM CSTVirtual Visit [facility] & Addiction [address] [place] F[address] [place] [phone] Zeynep Richmond, [address] 126894 05/19/2025 10:00 AM CSTVirtual Visit [facility] & Addiction [address] [place] F[address] [facility] [phone] Zeynep Richmond, [address] [address] 05/22/2025 10:00 AM CSTVirtual Visit [facility] & Addiction [address] [place] [address] [facility] [address] [phone] Digna Vega, SPLITTING MACHINE OPERATOR HELPER [address] [address] 05/26/2025 10:00 AM CSTVirtual Visit [facility] & Addiction [address] [place] F[address] [facility] [address] [phone] Zeynep Richmond, [address] 808474 06/02/2025 10:00 AM CSTVirtual Visit [facility] & Addiction [address] [place] [address] [phone] Zeynep Richmond, [address] 366054 06/13/2025 1:00 PM CSTOffice Visit [facility] [place] 6363 [facility] 103 [place] [phone] Reina Gonzalez MD 2270 [facility] 200 [place], [place] [phone] Bart De PA-C 7729 [facility] 103 [place] [address] 06/15/2025 9:00 AM CSTAppointment [facility] Imaging [address] [facility] [address] [place] [phone] Kei Rodas MD [address] [place] [address] 566955 06/15/2025 10:00 AM CSTAppointment [facility] Imaging [address] [place] [phone] Kei Rodas MD [address] [place] [address] 06/20/2025 11:00 AM CSTOffice Visit [facility] Vascular [address]rd [place] [phone] Kei Rodas MD [address] [place] [address] 07/17/2025 11:30 AM CDTVirtual Visit [facility] [address] [place] [phone] Reina Gonzalez MD [address] [place] [address] 200 [place], [place] [phone] Fan Mullins, PA-C [phone] [place] [address] [place] [address] 07/20/2025 11:10 AM CDTOffice Visit [address] 200 [place] [phone] Reina Gonzalez MD [address] [place] [address] 200 [place] [address] 08/28/2025 12:00 PM CDTAncillary Procedure [facility] Imaging Center [facility] Clinic [address]st [place] [phone] Domo Hammonds MD [address] [place] [address] 08/28/2025 1:00 PM CDTOffice Visit [facility] [address] [phone] Domo Hammonds MD 500 [place] [address] 09/04/2025 11:30 AM CDTVirtual Visit [facility] [address] [place] [phone] Lili Michael MD [address] 200 [place], [place] 816550 09/18/2025 11:40 AM CDTOffice Visit [facility] Heart [facility] 909 [place] [phone] Melissa Townsend NP 420 [facility] 508 [place], [place] 355415 documented as of this encounter Visit Diagnoses Not on filedocumented in this encounter Additional Health Concerns AssessmentNoted TimePHQ-9 Depression Total Score: 131 8:44 AM CDT documented as of this encounter Care Teams Team MemberRelationshipSpecialtyStart DateEnd Date Reina Gonzalez MD [address] [address] PCP - GeneralFamily Qtjeelzo75/15/23 Digna Vega, NINA TRANSLATIONAL SPECIALIST [address] [place] [address] 938414 Nurse PractitionerNurse Practitioner Psych/Mental Health05/30/16 Joseluis Carrillo MD [address] [place] [address] 190964 Family Medicine - Sports Medicine11/13/16 Zeynep Richmond, [facility] [address] [place] [address] 206154 Social WorkerSocial Worker - Clinical06/15/20 Reina Gonzalez MD 2277 [facility] 200 [place], [place] [phone] Assigned PCP01/18/22 Fan Mullins PA-C [address] [place] [address] Physician AssistantGastroenterology09/25/22 Portia Ventura APRN TRANSLATIONAL SPECIALIST 909 [place] [address] Nurse PractitionerCardiology10/22/22 Zeynep Richmond [facility] 2450 [place], [place] 464684 Assigned Behavioral Health Provider08/25/23 Denae Gomez DPM, Podiatry/Foot and Ankle Surgery 601[address] [facility] 300 [place], [place] 653437 Assigned Musculoskeletal Provider11/24/23 Sky Lynne PA-C 6545 [facility] 450 [place] [address] Assigned Neuroscience Provider01/25/24 Yudi Manuel PA-C [address] [facility] 377 [place] [address] Physician AssistantUrology1 Domo Hammonds MD 500 [place] [address] PulmonologistPulmonary Disease07/18/24 Funmilayo Ferrara APRN TRANSLATIONAL SPECIALIST 909 [place], [place] 080985 Assigned Surgical Provider09/23/24 Kei Rodas MD 9 [place], [place] 218465 Assigned Heart and Vascular Provider12/24/24 Lili Michael MD [address] E [facility] [place] 200 [place] [address] HospitalistEndocrinology, Diabetes, and Igtuijchfo57/10/25 Fan Mullins PA-C [address] [place] [address] Physician IpxduzuehSfsmyfohrsbupddz07/13/25 Domo Hammonds MD 500 [place] [address] Assigned Pulmonology Mtibnqpe33/23/25documented as of this encounter
--- OUTSIDE RECORDS SUMMARY | 2025-04-30 22:57 | XMS_ITS | Clinical Summary ---
Author Organization [facility] Address [address] [place] [address] Care Team Providers Care Certified Nurses Aide Name Role Phone GaryDigna bang NINA DUDE WRANGLER Unavailable Joseluis Carrillo MD Unavailable Zeynep Richmond CHILD ABUSE WORKER Unavailable Reina Gonzalez MD Unavailable Fan Sutherland-C Unavailable [phone] Portia Ventura KITCHEN PORTER DUDE WRANGLER Unavailable Reina Gonzalez MD Primary Care Provider Zeynep Richmond CHILD ABUSE WORKER Unavailable Denae Gomez DPM, Podiatry /Foot and Ankle Surgery Unavailable Sky Lynne PA-C Unavailable [phone] Yudi Manuel PA-C Unavailable Domo Hammonds MD Unavailable Funmilayo Ferrara APRN DUDE WRANGLER Unavailable Kei Rodas MD Unavailable Lili Michael MD Unavailable Fan Sutherland PA-C Unavailable [phone] Domo Hammonds MD Unavailable Allergies Active AllergyReactionsCriticalityNoted VuzbEhhwylkrCrysrvcfwbjmb02/13/2015 HYPONATREMIA NotydhaOwgiymw81/15/2012 Other reaction(s): Unknown but tolerates atorvastatin Medications MedicationSigDispense QuantityRefillsLast FilledStart DateEnd DateStatus Blood Pressure Monitor KIT Indications:Coronary artery disease involving paimiut heart without angina pectoris, unspecified vessel or lesion type,Chest pain, unspecified type, Paroxysmal ventricular tachycardia (H),SVT (supraventricular tachycardia), Palpitations1 Units 2 times daily Monitor home blood pressure as instructed by physician. Dispense [facility] blood pressure kit. 1 kit 05/16/2020ctive nitroGLYcerin (NITROSTAT) 0.4 MG sublingual tablet Indications:Coronary artery disease involving paimiut coronary artery of paimiut heart, unspecified whether angina present,Status post three vessel coronary artery bypass,Ischemic cardiomyopathyPlace 1 tablet (0.4 mg) under the tongue every 5 minutes as needed for chest pain For chest pain place 1 tablet under the tongue every 5 minutes for 3 doses. If symptoms persist 5 minutes after 1st dose call 911. 30 tablet ctive Magnesium Oxide -Mg Supplement 500 MG CAPS Indications:Constipation, unspecified constipation typeTake 1 capsule by mouth daily 90 capsule 01/12/2023ctive doxylamine (UNISOM) 25 MG TABS tablet Take 50 mg by mouth at bedtimeActive aspirin (ASPIR-LOW) 81 MG EC tablet Indications:Status post three vessel coronary artery bypass,Coronary artery disease involving coronary bypass graft of paimiut heart with other forms of angina pectorisTake 1 tablet (81 mg) by mouth daily11/26/2023ctive ferrous sulfate (FEROSUL) 325 (65 Fe) MG tablet Take 325 mg by mouth daily (with breakfast).Active famotidine (PEPCID) 20 MG tablet Take 20 mg by mouth 2 times daily.Active atorvastatin (LIPITOR) 80 MG tablet Indications:Ischemic cardiomyopathy,Status post three vessel coronary artery bypassTAKE 1 TABLET BY MOUTH EVERY DAY 90 tablet 5Active clopidogrel (PLAVIX) 75 MG tablet Indications:Atherosclerotic heart disease of paimiut coronary artery without angina pectorisTAKE 1 TABLET BY MOUTH EVERY DAY 90 tablet 5Active metoprolol succinate ER (TOPROL XL) 25 MG 24 hr tablet Indications:Coronary artery disease involving paimiut heart without angina pectoris, unspecified vessel or lesion typeTake 1 tablet (25 mg) by mouth daily. 90 tablet 5Active evolocumab (REPATHA SURECLICK) 140 MG/ML prefilled autoinjector Indications:Ischemic cardiomyopathy,Coronary artery disease of bypass graft of paimiut heart with stable angina pectoris,Hyperlipidemia LDL goal <70INJECT 1 ML (140 MG) SUBCUTANEOUS EVERY 14 DAYS 6 mL 5Active polyethylene glycol (MIRALAX) 17 GM/Dose powder Indications:Abdominal pain, generalized,Constipation, unspecified constipation typeTAKE 17 GRAMS BY MOUTH TWICE A DAY (OTC, NOT COVD BY INSURANCE) 1020 g 1005Active Additional Information Patient not taking.Reported on 04/24/2025 trospium (SANCTURA) 20 MG tablet Indications:Mixed stress and urge urinary incontinenceTake 1 tablet (20 mg) by mouth 2 times daily (before meals). 90 tablet 5Active solifenacin (VESICARE) 10 MG tablet Indications:Mixed stress and urge urinary incontinenceTake 1 tablet (10 mg) by mouth daily. 90 tablet 5Active mirtazapine (REMERON) 30 MG tablet Indications:Depression with anxietyTake 1 tablet (30 mg) by mouth at bedtime. 90 tablet 5Active ziprasidone (GEODON) 40 MG capsule Indications:Depression with anxiety,Schizoaffective disorder, unspecified type (H)Take 1 capsule (40 mg) by mouth daily (with breakfast). And continue with 60mg capsule with Dinner 90 capsule 5Active ziprasidone (GEODON) 60 MG capsule Indications:Schizoaffective disorder, unspecified type (H)Take 1 capsule (60 mg) by mouth daily. With dinner, continue 40mg cap with breakfast 90 capsule 5Active QUEtiapine (SEROQUEL) 50 MG tablet Indications:Schizoaffective disorder, unspecified type (H)Take 1-2 tablets (50- 100 mg) by mouth nightly as needed (sleep). 180 tablet 5Active Fvquiikisaw-Igckqsdce-Opiqgp (TRELEGY ELLIPTA) 100-62.5-25 MCG/ACT oral inhaler Indications:Emphysema, unspecified (H),Chronic obstructive pulmonary disease, unspecified COPD type (H)Inhale 1 puff into the lungs daily. 60 each 5Active pantoprazole (PROTONIX) 20 MG EC tablet Indications:Gastroesophageal reflux disease with esophagitis without hemorrhage, Heart burn,Epigastric pain,Esophageal cisaaxrgh21 mg twice a day 2 weeks, then 1 a day 2 weeks then 1 every other day 2 weeks then stop 49 tablet 5Active albuterol (PROAIR HFA/PROVENTIL HFA/VENTOLIN HFA) 108 (90 Base) MCG/ACT inhaler Indications:COPD (chronic obstructive pulmonary disease) (H)Inhale 2 puffs into the lungs every 6 hours. 18 each 5Active lisinopril (ZESTRIL) 2.5 MG tablet Indications:Coronary artery disease involving paimiut coronary artery of paimiut heart, unspecified whether angina presentTake 1 tablet (2.5 mg) by mouth daily. 90 tablet 5Active clonazePAM (KLONOPIN) 1 MG tablet Indications:Depression with anxietyTAKE ONE HALF TO ONE (0.5-1) TABLET BY MOUTH TWICE DAILY NEEDED FOR ANXIETY 58 tablet 5Active lisinopril (ZESTRIL) 2.5 MG tablet Indications:Coronary artery disease involving paimiut coronary artery of paimiut heart, unspecified whether angina presentTAKE 1 TABLET BY MOUTH EVERY DAY 90 tablet Discontinued clonazePAM (KLONOPIN) 1 MG tablet Indications:Depression with anxietyTAKE ONE HALF TO ONE (0.5-1) TABLET BY MOUTH TWICE DAILY NEEDED FOR ANXIETY 58 tablet Discontinued(Reorder (No AVS)) Active Problems ProblemNoted DateDiagnosed DatePAD (peripheral artery disease)03/20/2025 Epigastric pain03/20/2025Weight loss03/20/2025Gastroesophageal reflux disease with esophagitis without rckbepwqyg45/17/2025Esophageal iagxooyhe78/07/2025Heart burn07/18/2024Mixed stress and urge urinary zysieizvvxho82/17/2025History of adenomatous polyp of colon11/08/2023iverticular disease of colon11/08/2023 Hemorrhoids, unspecified hemorrhoid type11/08/2023onstipation, unspecified constipation type11/08/2023ystrophic nail11/08/2023ge related osteoporosis, unspecified pathological fracture odmwzjul61/31/2023ervical cancer screening thiflmkf59/31/2023Mammogram euyxudqq51/31/2023Former fnnbzb4502/20/2023ruxism 02/20/2023oronary artery disease involving coronary bypass graft of paimiut heart with other forms of angina ibqmmgrk45/19/2023History of ischemic colitis 11/15/2021Vitamin D omnggpvyob36/23/2022Emphysema, hlpputqkawf20/06/2022 Wequzyiaoesb16/06/2022History of vertebral compression hdytxqlq09/06/2022KD (chronic kidney disease) stage 3, GFR 30-59 ml/min02/18/2019Ischemic aspqlojpawgcil77/23/2019Sedative, hypnotic or anxiolytic rhebpvphxs84/25/2016 Schizoaffective hjuylcvx55/15/2014 Overview (03/05/2015): Problem list name updated by automated process. Provider to review Diagnosis updated by automated process. Provider to review and confirm. Status post three vessel coronary artery itysrj2407/02/2011Hyperlipidemia 07/02/2011ipolar qgolgzyv88/29/2012Posttraumatic stress gikfyqwj07/13/2010 Overview (08/30/2020): Post Traumatic Stress Disorder Prolonged Loss of teeth due to periodontal zmiweae2409/13/2009 Overview (08/30/2020): Edentulous Periodontal Disease Anorexia xyaqpsx1709/13/2009Generalized anxiety lpnknrak64/28/2009 Overview (08/30/2020): Anxiety Disorder Generalized Obsessive-compulsive yyppmaex92/28/2009 Overview (08/30/2020): Obsessive Compulsive Disorder Resolved Problems ProblemNoted DateDiagnosed DateResolved DateSevere sinus lufskcgideh08/26/2023 07/18/2024therosclerotic heart disease of paimiut coronary artery with unstable angina ijikimhz71Encounter for screening laboratory testing for COVID-19 virusVaping nicotine dependence, tobacco vvgcebs68Unstable lnfdal77oronary artery disease involving paimiut heart, unspecified vessel or lesion type, unspecified whether angina heqhaem11Status post coronary angiogram oronary artery disease of bypass graft of paimiut heart with stable angina cywrvlgd93oronary artery disease involving paimiut coronary artery of paimiut heart, unspecified whether angina present Tubular adenoma of colon/06/2023Hematochezia /KI (acute kidney injury)/rediabetes /ilateral hip pain/Midline thoracic back paincute bilateral low back pain without inphfobu08/21/2016 01/25/2021Hip pain, righthest pain02/18//08/2021 Controlled substance agreement tcuwaw16 Overview (02/13/2016): Controlled Substance Refill Request for Klonopin 1 mg Last refill: 02/06/2016 Last clinic visit: 02/13/16 Clinic visit frequency required: Q 3 months Next appt: 05/2016 Controlled substance agreement on file: Yes: Date 02/13/2016. Documentation in problem list reviewed: Yes Processing: Patient will picker packer in clinic RX monitoring program ([place]) reviewed: PRINTED FORMS PROOFREADER reviewed- no concerns [place] profile: [email or web address] Chest pain with high risk of acute coronary teflazwp74Unstable xjkfue25ARDIOVASCULAR SCREENING; LDL GOAL LESS THAN 160 utoimmune ksyvitqbvax44oronary artery disease involving paimiut coronary artery of paimiut heart Overview (08/30/2020): S/P 3V CABG (2011) Compression fracture of L2 lumbar dvosylyw39estless legs syndrome (RLS) Overview (08/30/2020): Restless Leg Syndrome Tobacco use wpglovtr25 Overview (08/30/2020): Tobacco Abuse Subclinical tyeuailbocpmgt10 Overview (08/30/2020): Hypothyroidism Primary Encounters DateTypeDepartmentCare EzcqGeeljcitzjs91/22/2025 10:30 AM CSTVirtual Visit [facility] Mental [facility] [place] [id number] [facility] [address] [phone] Digna Vega, NINA DUDE WRANGLER Depression with thrhbpt4604/21/2025 10:00 AM CSTVirtual Visit [facility] Mental [facility] [place] [id number] [facility] [address] [phone] Zeynep Richmond, NIR Posttraumatic stress disorder (Primary Dx); Schizoaffective disorder, unspecified type (H); Obsessive-compulsive disorder, unspecified type; Eating disorder, unspecified type04/20/2025Refill [facility] Heart [facility] [address] [place] [phone] Portia Ventura APRN DUDE WRANGLER Medication Qbmfqv9504/10/2025 9:30 AM CSTOffice Visit [place] [id number] [facility] [address] [place] [phone] Reina Gonzalez MD Gastroesophageal reflux disease, unspecified whether esophagitis present [...] artery disease involving coronary bypass graft of paimiut heart with other forms of angina pectoris; [...] hypnotic or anxiolytic dependence (H); Health care tkcqfdbmyhp93/07/0642Erbkfo77/05/2025 10:00 AM CSTVirtual Visit [facility] [place] [phone] [phone] Zeynep Richmond LICSW Posttraumatic stress disorder (Primary Dx); Schizoaffective disorder, unspecified type (H); Obsessive-compulsive disorder, unspecified type; Eating disorder, unspecified type03/24/2025[facility] Medical Advice [facility] [address] [place] [phone] Alisson Jarquin 03/24/2025Telephone [facility] [address] [place] [address] [place] [phone] Zeynep Richmond LICSW 03/22/2025Telephone [facility] Lung Science and [address] [phone] Domo Hammonds MD Medication Request; Refill Qmqyjkc3503/19/2025[facility] Medical Advice [address] [phone] Reina Gonzalez MD 03/17/2025 10:00 AM CSTVirtual Visit [facility] [address] [place] [phone] Zeynep Richmond LICSW Posttraumatic stress disorder (Primary Dx); Schizoaffective disorder, unspecified type (H); Obsessive-compulsive disorder, unspecified type; Eating disorder, unspecified type03/16/20253951Pdpurq64/11/2025[facility] Medical Advice [address] [place] [phone] Reina Gonzalez MD 03/10/2025 9:50 AM CSTOffice Visit [address] [place] [phone] Reina Gonzalez MD Gastroesophageal reflux disease with esophagitis without hemorrhage (Primary Dx); Heart burn; Epigastric pain; Esophageal [...] artery disease involving coronary bypass graft of paimiut heart with other forms of angina pectoris; Status post three vessel coronary artery bypass; Ischemic cardiomyopathy; Hyperlipidemia, unspecified hyperlipidemia type; Palpitations; PAD (peripheral artery disease); Emphysema, unspecified (H); Former smoker; History of ischemic colitis; History of adenomatous polyp of colon; Diverticular disease of colon; Hemorrhoids, unspecified hemorrhoid type; Mixed stress and urge urinary incontinence; Dystrophic nail; Akathisia; Bruxism; Posttraumatic stress disorder; Generalized anxiety disorder; Obsessive-compulsive disorder, unspecified type; Schizoaffective disorder, unspecified type (H); Bipolar affective disorder in remission; Sedative, hypnotic or anxiolytic dependence (H); Mammogram declined; Abnormal finding of blood chemistry, kkhceonebkb48/07/2025Results Follow-Up [address] [phone] Reina Gonzalez MD Subj: Message about your cmbogji4103/10/2025Telephone [facility] [place] [phone] [facility] [address] [phone] Digna Vega APRN CNP 03/10/20257719Vccmub99/06/8291Udsnuh61/31/2025 10:00 AM CDTVirtual Visit [facility] [place] [phone] [facility] [address] [phone] Zeynep Richmond LICSW Schizoaffective disorder, unspecified type (H) (Primary Dx); Posttraumatic stress disorder; Obsessive-compulsive disorder, unspecified type; Eating disorder, unspecified type02/27/2025 1:[address] [facility] [address] [phone] Reina Gonzalez MD Rovinski, Randal, MD Personal history of tobacco use (Primary Dx); Emphysema, unspecified (H); Former smoker; Chronic obstructive pulmonary disease, unspecified COPD type (H)02/27/2025 12:30 PM CDTOrders Only [facility] Pulmonary Function Testing [address] [place] [address] Domo Hammonds MD Emphysema, unspecified (H); COPD (chronic obstructive pulmonary disease) (H)02/27/20257084Yoojvq72/27/2025PRE VISIT [facility] [address] [phone] Domo Hammonds MD *-*INCOMING RECORDS*-*02/26/20254596Zyoxtp93/23/2025 9:00 AM CDTVirtual Visit [facility] [address] [place] [phone] Digna Vega APRN DUDE WRANGLER Abdominal pain, generalized; Constipation, unspecified constipation type; Depression with anxiety; Schizoaffective disorder, unspecified type (H)02/22/2025Refill [facility] Urology [address] [place] [phone] Hannah Jung, NICHOLAS Refill Dohrcez1102/17/2025 10:00 AM CDTVirtual Visit [facility] [address] [facility] [address] [phone] Zeynep Richmond LICSW Posttraumatic stress disorder (Primary Dx); Schizoaffective disorder, unspecified type (H); Obsessive-compulsive disorder, unspecified type; Eating disorder, unspecified type02/09/2025Refill [address] [place] [address] Tong King PA-C Medication Mykuup4202/07/2025Orders Only [facility] [place] [address] [place] [phone] Afua Cardoza, RN Mixed stress and urge urinary zmouncdjcxxx79/07/2025MyC Medical Advice [facility] [place] [address] [place] [phone] Afua Cardoza, RN from Last 3 Months Immunizations ImmunizationAdministration DatesNext DueCOVID-19 12+ (Pfizer)03/01/2024, 4COVID-19 Bivalent 12+ (Pfizer)02/20/2022OVID- MONOVALENT 12+ (Pfizer)08/06/2020,07/16/2020OVID-19 Monovalent 12+ (Pfizer 2021)09/24/2021, 05/27/2021Influenza (High Dose) Trivalent,PF (Fluzone)02/28/2025Influenza Vaccine 18-64 (Flublok)01/15/2023,02/20/2022,05/27/2021,03/27/2020Influenza Vaccine >6 months,quad, PF02/13/2016,04/18/2015Influenza Vaccine Trivalent (FluBlok)03/01/2024MMR (MMRII)12/02/2011Pneumococcal 20 valent Conjugate (Prevnar 20)3Pneumococcal 23 vgrekc662RSV Vaccine (Arexvy) 03/18/2023TDAP Vaccine (Adacel)04/18/2015,12/02/2011Zoster recombinant adjuvanted (Shingrix)10/24/2021,08/22/2021 Family History Medical HistoryRelationCommentsCancerFather?Heart DiseaseFatherHypertension FatherOther CancerFatherFamily History NegativeMaternal GrandfatherArthritis MotherDepressionMotherHeart DiseaseMotherMental IllnessMotherRelationStatus CommentsFatherDeceasedMaternal GrandfatherDeceasedMaternal GrandmotherDeceased MotherAlivePaternal GrandfatherDeceasedPaternal GrandmotherDeceasedSon 1AliveSon 2AliveSon 3Alive Social History Tobacco UseTypesPacks/DayYears UsedDateSmoking Tobacco: CnvctiMicixlfawo062.9 05/04/1971 - 03/30/2014OtherPassive Smoke Exposure: NeverSmokeless Tobacco: Former Tobacco Cessation:Counseling Given: Not Answered Comments:Patient stated- she is currently smoking E-cig daily. Alcohol UseStandard Drinks/WeekCommentsYes0 (1 standard drink = 0.6 oz pure alcohol)1 small cider every 2 weeksSocial Connection and Isolation PanelAnswer Date RecordedFrequency of Communication with Friends and FamilyNot on file 07/11/2024How often do you get together with friends or relatives?More than three times a week07/11/2024ttends Anabaptism ServicesNot on file07/11/2024 Active Member of Clubs or OrganizationsNot on file07/11/2024ttends Club or Organization MeetingsNot on file07/11/2024Marital StatusNot on file07/11/2024 PHQ-2AnswerDate RecordedPHQ-2 Bxsot34006/22/2024[facility] [place] [facility] - Occupational Stress QuestionnaireAnswerDate [...] CommentsNoSex and Gender InformationValueDate RecordedSex Assigned at NpoztVxtfsl63/06/2020 7:20 AM CSTLegal HiaFsunmb42/04/2012 3:20 AM CSTGender RpsndqmvVvnggf76/06/2020 7:20 AM CSTSexual TuoqxmwwqplAfqytnfg51/06/2020 7:20 AM PATTERN DEVELOPER Last Filed Vital Signs Vital SignReadingTime TakenCommentsBlood Slbujpci077/8204/10/2025 9:12 AM PATTERN DEVELOPER Mxaac757004/10/2025 9:12 AM ZDNUcyxdouszhy53.4 ??C (97.6 ??F)04/10/2025 9:12 AM CSTRespiratory Brjd806306/11/2024 9:12 AM CSTOxygen Uvmawdfgyr33%04/10/2025 9:12 AM CSTInhaled Oxygen Concentration--Hsjfbf51.3 kg (181 lb 8 oz)04/10/2025 9:12 AM BABVdpqlx134.7 cm (5' 6.8)04/10/2025 9:12 AM CSTBody Mass Index28.6 04/10/2025 9:12 AM PATTERN DEVELOPER Plan of Treatment DateTypeDepartmentCare Team (Latest Contact Info)Vftfvfpssid38/09/2026 10:00 AM CSTVirtual Visit [facility] Mental [facility] [address] [place] [address] [phone] Zeynep Richmond, CHILD ABUSE WORKER [address] [place] [phone] 05/19/2025 10:00 AM CSTVirtual Visit [facility] Mental [facility] [address] [place] [address] [phone] Zeynep Richmond, CHILD ABUSE WORKER [address] [place] [address] [phone] 05/22/2025 10:00 AM CSTVirtual Visit [facility] Mental [facility] [address] [place] [address] [phone] Digna Vega, KITCHEN PORTER DUDE WRANGLER [address] [place] [phone] 05/26/2025 10:00 AM CSTVirtual Visit [facility] Mental [facility] [address] [place] [address] [phone] Zeynep Richmond, CHILD ABUSE WORKER [address] [place] [phone] 06/02/2025 10:00 AM CSTVirtual Visit [facility] [address] [place] [address] [phone] Zeynep Richmond, CHILD ABUSE WORKER [address] [place] [phone] 06/13/2025 1:00 PM CSTOffice Visit [facility] [place] [address] [facility] [address] [place] [phone] Reina Gonzalez MD 2[address] [facility] 200 [place] [address] Bart De PA-C 6[address] [facility] [address] [place] [address] 06/15/2025 9:[address] [facility] [address] [facility] [address] [place] [phone] Kei Rodas MD [address] [place] [phone] 06/15/2025 10:[address] [facility] [address] [facility] [address] [place] [phone] Kei Rodas MD [address] [place] [address] 06/20/2025 11:00 AM CSTOffice Visit [facility] V[facility] Clinic [address] [place] [phone] Kei Rodas MD [address] [place] [address] 07/17/2025 11:30 AM CDTVirtual Visit [address] [phone] Reina Gonzalez MD 2[address] [facility] 200 [place] [address] Fan Sutherland PA-C [address] [place] [address] 07/20/2025 11:10 AM CDTOffice Visit [facility] [address] [facility] [address] [place] [phone] Reina Gonzalez MD [address] [facility] [address] [place] [address] 08/28/2025 12:00 PM CDTAncillary Procedure [facility] [address] 1st [place] [phone] Domo Hammonds MD [address] [place], [place] [address] 08/28/2025 1:[address] [facility] [address] [phone] Domo Hammonds MD [address] [place], [place] [phone] 09/04/2025 11:30 AM CDTVirtual Visit [facility] [address] [place] [phone] Lili Michael MD [address] [place], [place] [address] 09/18/2025 11:40 AM CDTOffice Visit [facility] Heart [address] [phone] Melissa Townsend NP [address] [facility] [address] [place], [place] [phone] Health MaintenanceDue DateLast DoneCommentsCT IDYCPYUXRRVK1960FIT 1960FLEX SIG1960HEPATITIS A VACCINE (1 of 2 - Risk 2-dose series) 12/31/1978MAMMO GVYCOJIVZ00 (Declined), 06/04/2014sDNA (Cologuard)/06/2021, 2DTAP/TDAP/TD VACCINE (3 - Td or Tdap) , 12/02/2011FALL RISK SVMOYVAREA62, 05/09/20242701LHJQR78, 11/03/2023, 02/20/2023, Additional history existsMEDICARE ANNUAL WELLNESS VISIT, 02/20/2023, 08/22/2021, Additional history nnhlfdQUULTVFJFFXB44/11/202603/11/2025, 02/20/2023, 08/22/2021, Additional history existsLUNG CANCER MXSIQTBKK99/02/2026 08/03/2024, 04/09/2023, 2COVID-19 VACCINE ( season) , 03/01/2024, 11/03/2023, Additional history existsBMP , 11/14/2024, 07/12/2024, Additional history exists NVAIOCSVAE37, 11/14/2024, 07/12/2024, Additional history existsANNUAL REVIEW OF HM FWACVY87, 07/18/2024, 03/01/2024, Additional history obikslJLDT80, 2DIABETES SCREENING , 11/14/2024, 07/12/2024, Additional history existsADVANCE CARE MSFBEDKF67, 07/12/2024, 03/03/2023, Additional history jjfwakWSDUQVEYVRA67, 04/30/2023, 10/16/2021OLORECTAL CANCER HEXBKUQRN63/28/3790TQLZvnelmtnnaiz87/11/2016, 07/13/2015, 06/04/2014HEPATITIS C QQZDDRSSYMcrgdncfw12/30/2018COPD ACTION IPCXTejdrofdk97/21/2022, 08/22/2021HIV ACGFVUINRQplngwcda09/21/2022ZOSTER PCTCWVWGvgeuktvt08/23/2022, 08/22/2021 PNEUMOCOCCAL VACCINE 50+ WAMKXQsgswdvoe78/14/2023, 2RSV VACCINE Ueqectsro46/15/8543DAMEJZWSCDApzdbqxzo95/14/2025, 07/28/2024, 03/31/2023, Additional history scefycAQVGGIBNYZBpespmfqu36/27/2025, 02/27/2025, 02/27/2025, Additional history existsINFLUENZA XOPSCIHOyecdmnaq72/28/2025, 03/01/2024, 01/15/2023, Additional history existsTSH W/FREE T4 DZEMDILjxhccnrmdco17/07/2025, 07/12/2024, 11/03/2023, Additional history existsPHQ-2 (once per calendar year) Nmxyozglp33/19/2025, 04/21/2025, 04/07/2025, Additional history existsHPV VACCINE (No Doses Required)CompletedMENINGITIS VACCINEAged OutNo longer eligible based on patient's age to complete this topic Medical Devices ImplantedTypeAreaManufacturerDevice IdentifierShelf Expiration DateModel / Serial / LotStent Coronary Jin Synergy Xd Mr Us 2.92y77gs [id number] - [id number] Implanted:Qty[facility] El[facility] (JIN)[employer]01/03/2023 [id number] / / [id number] Angioseal 6fr [id number] - [id number] Implanted:Qty: 1 on 10/23/2022 at [facility]01/31/[id number] / / [id number] Procedures Procedure NamePriorityDate/TimeAssociated DiagnosisCommentsHELICOBACTER PYLORI ANTIGEN GOLUOYfojyjm47/13/2025 9:12 AM PATTERN DEVELOPER Gastroesophageal reflux disease with esophagitis without hemorrhage Heart burn Epigastric pain CBC WITH PLATELETS & HJXUQPWPHCNXMhlmxrk66/07/2025 11:01 AM PATTERN DEVELOPER Gastroesophageal reflux disease with esophagitis without hemorrhage Heart burn Epigastric pain Esophageal dysphagia CBC WITH PLATELETS AND XVZHFAUZUQSBOofjuaj06/07/2025 11:01 AM PATTERN DEVELOPER Gastroesophageal reflux disease with esophagitis without hemorrhage Heart burn Epigastric pain Esophageal dysphagia TQWRDQYQFnixjcn87/07/2025 11:01 AM PATTERN DEVELOPER Gastroesophageal reflux disease with esophagitis without hemorrhage Heart burn Epigastric pain Esophageal dysphagia Abnormal finding of blood chemistry, unspecified TSH WITH FREE T4 OZYDWXTibwrel71/07/2025 11:01 AM PATTERN DEVELOPER Age related osteoporosis, unspecified pathological fracture presence Generalized anxiety disorder COMPREHENSIVE METABOLIC RQWNONfxigkw92/07/2025 11:01 AM PATTERN DEVELOPER Gastroesophageal reflux disease with esophagitis without hemorrhage Heart burn Epigastric pain Esophageal dysphagia TX PLETHYSMOGRAPHY LUNG VOLUMES W/WO AIRWAY BRTZJUXcswlri05/27/2025 12:41 PM CDT Emphysema, unspecified (H) COPD (chronic obstructive pulmonary disease) (H) TX BRONCHODILATION RESPONSE, PRE/POST PBRODCaecekg48/27/2025 12:41 PM CDT Emphysema, unspecified (H) COPD (chronic obstructive pulmonary disease) (H) TX DIFFUSING IJDVSCYLKgcghbp69/27/2025 12:41 PM CDT Emphysema, unspecified (H) COPD (chronic obstructive pulmonary disease) (H) PFT GENERAL LAB ENKJOBRQqyfzqa84/27/2025 12:21 PM CDT Emphysema, unspecified (H) COPD (chronic obstructive pulmonary disease) (H) UA MACROSCOPIC WITH REFLEX TO MICRO AND YJGEWSSBXEI28/14/2025 10:59 AM CDT Abdominal pain, generalized DX AXIAL HIPS/HKOOVUjusplw73/21/2025 9:38 AM CDT Age related osteoporosis, unspecified pathological fracture presence CT CHEST LUNG CANCER SCREEN LOW DOSE YYKEOKFFtkqsqu68/02/2025 1:47 PM CDT History of tobacco use, presenting hazards to health Former smoker ALBUMIN AND CREATININE WITH RATIO RANDOM URINE HFMITDXXSMGYPzvendw02/11/2025 2:23 PM CDT Stage 3 chronic kidney disease, unspecified whether stage 3a or 3b CKD (H) LIPID REFLEX TO DIRECT LDL HXEXTRatoabo56/11/2025 2:20 PM CDT Class 1 obesity due to excess calories with serious comorbidity and body mass index (BMI) of 30.0 to 30.9 in adult Coronary artery disease involving coronary bypass graft of paimiut heart with other forms of angina pectoris Ischemic cardiomyopathy SAQCFXDVRBOKucxovp19/28/2023 7:16 AM PATTERN DEVELOPER [employer])Qfqatmm8009/02/2021 8:17 AM CDT Routine general medical examination at a health care facility Medicare annual wellness visit, subsequent Screen for colon cancer HIV ANTIGEN ANTIBODY HVFRXOeyvxmi49/21/2022 10:53 AM CDT Screening for HIV (human immunodeficiency virus) HEPATITIS C QDXMKQEVUyiuhhw93/30/2018 11:47 AM PATTERN DEVELOPER Need for hepatitis C screening test PAP IMAGED THIN LAYER FXGSLEEqncqgc09/11/2016 3:40 PM PATTERN DEVELOPER Screening for malignant neoplasm of cervix MAMMOGRAM - HIM VVMRCectnck84/01/2015 from Last 3 Months or Most Recently Relevant to Health Maintenance Results * Helicobacter pylori Antigen Stool (03/16/2025 9:12 AM PATTERN DEVELOPER)ComponentValueRef RangeTest MethodAnalysis TimePerformed AtPathologist SignatureHelicobacter pylori Antigen UndyaKtqkvdbcFjoocgda68/14/2025 11:52 AM [facility] Comment:Negative for Helicobacter pylori antigen by enzyme immunoassay. A negative result indicates the absence of H. pylori antigen or that the level of antigen is below the level of detection.Specimen (Source)Anatomical Location / LateralityCollection Method / VolumeCollection TimeReceived Time StoolRECTAL CONTENTS / UnknownNon-blood Collection / Vlpqfro1603/16/2025 9:12 AM CST03/16/2025 12:22 PM PATTERN DEVELOPER Narrative Authorizing ProviderResult TypeResult StatusLominerva Gonzalez MDLAB - STOOLS ORDERABLESFinal ResultPerforming OrganizationAddressCity/State/ZIP CodePhone Number SPECIALTY CORE/PROT/ENDO Specialty Core/Prot/Endo [address] [facility], [address] SPECIALTY LAB[facility] Specialty Lab [address] [facility], [address] * CBC with platelets and differential (03/10/2025 11:01 AM PATTERN DEVELOPER)ComponentValueRef RangeTest MethodAnalysis TimePerformed AtPathologist SignatureWBC Count10.75 4.00 - 11.00 10e3/uL03/10/2025 11:04 AM CSTSPHP LABORATORYRBC Count4.533.80 - 5.20 10e6/uL03/10/2025 11:04 AM CSTSPHP WWKAULKLZJOdaftjmixs04.511.7 - 15.7 g/dL03/10/2025 11:04 AM CSTSPHP JKMUENTUSKKnmgtnzjfb24.335.0 - 47.0 % 03/10/2025 11:04 AM CSTSPHP GYPDTPPBABPQN62.478.0 - 100.0 fL03/10/2025 11:04 AM CSTSPHP CZCGAPJXHWOXT20.826.5 - 33.0 pg03/10/2025 11:04 AM CSTSPHP LGHTIXEKFAVRCD61.931.5 - 36.5 g/dL03/10/2025 11:04 AM CSTSPHP LABORATORYRDW 13.810.0 - 15.0 %03/10/2025 11:04 AM CSTSPHP LABORATORYPlatelet Cxaem917549 - 450 10e3/uL03/10/2025 11:04 AM [facility] LABORATORY% Yichakkvwxi66.0%03/10/2025 11:04 AM [facility]AT[facility]% Efhftmdntln92.8%03/10/2025 11:04 AM [facility]% Monocytes9.0%03/10/2025 11:04 AM [facility]AT[facility]% Eosinophils 1.0%03/10/2025 11:04 AM [facility]ST[facility] LABORAT[facility]% Basophils0.4%03/10/2025 11:04 AM [facility] LABORATORY% Immature Granulocytes0.8%03/10/2025 11:04 AM CSTSPHP LABORATORYAbsolute Neutrophils7.301.60 - 8.30 10e3/uL03/10/2025 11:04 AM PATTERN DEVELOPER SPHP LABORATORYAbsolute Lymphocytes2.240.80 - 5.30 10e3/uL03/10/2025 11:04 AM CSTSPHP LABORATORYAbsolute Monocytes0.970.00 - 1.30 10e3/uL03/10/2025 11:04 AM CSTSPHP LABORATORYAbsolute Eosinophils0.110.00 - 0.70 e3/03/10/2025 11:04 AM CSTSPHP LABORATORYAbsolute Basophils0.040.00 - 0.20 e3/uL03/10/2025 11:04 AM CSTSPHP LABORATORYAbsolute Immature Granulocytes0.09<=0.40 10e3/uL 03/10/2025 11:04 AM CSTSPHP LABORATORYSpecimen (Source)Anatomical Location / LateralityCollection Method / VolumeCollection TimeReceived TimeBloodSTRUCTURE OF LEFT UPPER LIMB / UnknownVenipuncture / Aqypeit3503/10/2025 11:01 AM PATTERN DEVELOPER 03/10/2025 11:02 AM PATTERN DEVELOPER Narrative Authorizing ProviderResult TypeResult StatusLouisbeatrice Gonzalez MDLAB - BLOOD ORDERABLES Final ResultPerforming OrganizationAddressCity/State/ZIP CodePhone Number [facility] [address] [facility] [address] [phone] * TSH with free T4 reflex (03/10/2025 11:01 AM PATTERN DEVELOPER)ComponentValueRef RangeTest MethodAnalysis TimePerformed AtPathologist SignatureTSH1.650.30 - 4.20 uIU/mL 03/10/2025 7:23 PM CSTUU LABORATORYSpecimen (Source)Anatomical Location / LateralityCollection Method / VolumeCollection TimeReceived TimeBloodSTRUCTURE OF LEFT UPPER LIMB / UnknownVenipuncture / Hfwbgqg9203/10/2025 11:01 AM PATTERN DEVELOPER 03/10/2025 11:02 AM PATTERN DEVELOPER Narrative Authorizing ProviderResult TypeResult StatusReina Gonzalez MDDWIGHT D. [facility]ISENH[facility] - BLOOD ORDERABLES Final ResultPerforming OrganizationAddressCity/State/ZIP CodePhone Number LABORATORY [facility] Core Lab [address] [facility], [address] * Ferritin (03/10/2025 11:01 AM PATTERN DEVELOPER)ComponentValueRef RangeTest MethodAnalysis TimePerformed AtPathologist EgszxbjryEgkwvzfe09771 - 328 ng/mL03/10/2025 7:23 PM CSTUU LABORATORYSpecimen (Source)Anatomical Location / LateralityCollection Method / VolumeCollection TimeReceived TimeBloodSTRUCTURE OF LEFT UPPER LIMB / UnknownVenipuncture / Bkdokba1703/10/2025 11:01 AM CST03/10/2025 11:02 AM PATTERN DEVELOPER Narrative Authorizing ProviderResult TypeResult StatusReina WING - BLOOD ORDERABLES Final ResultPerforming OrganizationAddressCity/State/ZIP CodePhone Number LABORATORY [facility] Core Lab [address] [facility], [address] * (ABNORMAL) Comprehensive metabolic panel (03/10/2025 11:01 AM PATTERN DEVELOPER)Component ValueRef RangeTest MethodAnalysis TimePerformed AtPathologist SignatureSodium 277163 - 145 mmol/L105/10/2024 7:23 PM CSTUU LABORATORYPotassium4.53.4 - 5.3 mmol/L105/10/2024 7:23 PM CST[facility] LABORATORYCarbon Dioxide (CO2)2722 - 29 mmol/L 03/10/2025 7:23 PM CSTUU LABORATORYAnion Add623 - 15 mmol/L105/10/2024 7:23 PM CSTUU LABORATORYUrea Paaemoyb04.58.0 - 23.0 mg/dL03/10/2025 7:23 PM CSTUU LABORATORYCreatinine1.29(H)0.51 - 0.95 mg/dL03/10/2025 7:23 PM CSTUU LABORATORYGFR Fwhapmdk75(L)>60 mL/min/1.68b17903/10/2025 7:23 PM CSTUU LABORATORYComment:eGFR calculated using 2020 CKD-EPI equation.Acdkgsf70.18.8 - 10.4 mg/dL03/10/2025 7:23 PM CSTUU DCWYJYYWFAItkepfwa53683 - 107 mmol/L 03/10/2025 7:23 PM CSTUU FTHXBUFRZNBdbatzd5661 - 99 mg/dL03/10/2025 7:23 PM CSTUU LABORATORYAlkaline Pnntusbpcig79342 - 150 U/L105/10/2024 7:23 PM CSTUU MADMQSOYQJQXN762 - 45 U/L105/10/2024 7:23 PM CSTUU AIGIGEGCSJBKF650 - 50 U/L 03/10/2025 7:23 PM [facility] LABORATORYProtein Total7.66.4 - 8.3 g/dL03/10/2025 7:23 PM C[facility] LABORATORYAlbumin4.43.5 - 5.2 g/dL03/10/2025 7:23 PM CSTUU LABORATORYBilirubin Total0.2<=1.2 mg/dL03/10/2025 7:23 PM [facility] LABORATORY Specimen (Source)Anatomical Location / LateralityCollection Method / Volume Collection TimeReceived TimeBloodSTRUCTURE OF LEFT UPPER LIMB / Unknown Venipuncture / Bzxbuzb0203/10/2025 11:01 AM CST03/10/2025 11:02 AM PATTERN DEVELOPER Narrative Authorizing ProviderResult TypeResult StatusLouisbeatrice WING - BLOOD ORDERABLES Final ResultPerforming OrganizationAddressCity/State/ZIP CodePhone Number [facility] LABORATORY [facility] [place] [facility] [address] [facility], Room [address] [place] [phone] * Pulmonary function test (02/27/2025 12:21 PM CDT)ComponentValueRef RangeTest MethodAnalysis TimePerformed AtPathologist SignatureFVC-Pred3.10L1 12:21 PM CDTBREEZE DZMOOA8CME-Muke52J21/27/2025 12:21 PM CDTBREEZE PFT RMY2QLA3-Isav37%02/27/2025 12:21 PM CDTBREEZE PXQUSO4MLR-Ueuu43%02/27/2025 12:21 PM CDTBREEZE PFTFEFMax-Pred6.30L/sec02/27/2025 12:21 PM CDTBREEZE PFT CZR8448-Kkbt6.04L/sec02/27/2025 12:21 PM CDTBREEZE PFTFVC-Pre2.23L1 12:21 PM CDTBREEZE PFTFVC-%Pred-Pre71%02/27/2025 12:21 PM CDTBREEZE PFT MVA0WSA-Dqn81H50/27/2025 12:21 PM CDTBREEZE PFTFEV1-Pre1.26L1 12:21 PM CDTBREEZE PFTFEV1-%Pred-Pre51%02/27/2025 12:21 PM CDTBREEZE UIHBAX6OXL1-Dwv 61%02/27/2025 12:21 PM CDTBREEZE MZDKYE0SNM-Nxc81%02/27/2025 12:21 PM CDT BREEZE EPSNRA1PEJ-%Pred-Pre71%02/27/2025 12:21 PM CDTBREEZE PFTFEFMax-Pre3.71 L/sec02/27/2025 12:21 PM CDTBREEZE PFTFEFMax-%Pred-Pre58%02/27/2025 12:21 PM CDTBREEZE MPXJGX1371-Pft1.52L/sec02/27/2025 12:21 PM CDTBREEZE PFT OMR4066-%Pred-Pre25%02/27/2025 12:21 PM CDTBREEZE PFTFIFMax-Pre5.39L/sec 02/27/2025 12:21 PM CDTBREEZE PFTExpTime-Pre8.93fsc90 12:21 PM CDT BREEZE MJYMAN1347-Dpdz7.78L/sec02/27/2025 12:21 PM CDTBREEZE PFT ZMC0071-%Pred-Post38%02/27/2025 12:21 PM CDTBREEZE PFTVC-Pred3.42L1 12:21 PM CDTBREEZE PFTIC-Pred2.51L1 12:21 PM CDTBREEZE PFTERV-Pred 0.85L1 12:21 PM CDTBREEZE PFTVC-Pre2.35L1 12:21 PM CDTBREEZE PFTVC-%Pred-Pre68%02/27/2025 12:21 PM CDTBREEZE PFTIC-Pre2.00L1 12:21 PM CDTBREEZE PFTIC-%Pred-Pre79%02/27/2025 12:21 PM CDTBREEZE PFTERV-Pre0.35L 02/27/2025 12:21 PM CDTBREEZE PFTERV-%Pred-Pre41%02/27/2025 12:21 PM CDTBREEZE PFTFRCPleth-Pred2.97L1 12:21 PM CDTBREEZE PFTRVPleth-Pred1.97L 02/27/2025 12:21 PM CDTBREEZE PFTTLCPleth-Pred5.40L1 12:21 PM CDT BREEZE PFTGaw-Pred1.03L/s/xaD2Q6702/27/2025 12:21 PM CDTBREEZE PFTsRaw-Pred< 4.90ehI9Q*02/27/2025 12:21 PM CDTBREEZE PFTsGaw-Pred0.201/cmH2O*02/27/2025 12:21 PM CDTBREEZE PFTFRCPleth-Pre3.21L1 12:21 PM CDTBREEZE PFT FRCPleth-%Pred-Wsa439%02/27/2025 12:21 PM CDTBREEZE PFTRVPleth-Pre2.87L 02/27/2025 12:21 PM CDTBREEZE PFTRVPleth-%Pred-Glw771%02/27/2025 12:21 PM CDT BREEZE PFTTLCPleth-Pre5.21L1 12:21 PM CDTBREEZE PFTTLCPleth-%Pred-Pre 96%02/27/2025 12:21 PM CDTBREEZE PFTDLCOunc-Pred20.33ml/min/mmHg02/27/2025 12:21 PM CDTBREEZE PFTDLCOunc-Pre12.55ml/min/mmHg02/27/2025 12:21 PM CDTBREEZE PFTDLCOunc-%Pred-Pre61%02/27/2025 12:21 PM CDTBREEZE PFTVA-Pre4.03L1 12:21 PM CDTBREEZE PFTVA-%Pred-Pre81%02/27/2025 12:21 PM CDTBREEZE PFT Anatomical RegionLateralityModalityOtherSpecimen (Source)Anatomical Location / LateralityCollection Method / VolumeCollection TimeReceived Time02/27/2025 12:21 PM CDT Narrative 02/27/2025 12:21 PM CDT The FEV1/FVC is reduced. The FEV1 is moderately reduced. The FVC is normal. The FEV1Q is 3.15 . TheTLC by body plethysmography is normal. The DLCO is moderately reduced; however, the diffusing capacity was not corrected for the patient's hemoglobin. Following administration of bronchodilators, there is a significant improvement in FVC. Conclusion:Moderate airflow obstructive defect with a significant bronchodilator response. Moderate diffusion defect. This Completed, Posted and Locked interpretation has been electronically signed by Vida Bailey on 02/28/2025 at 6:12 PM. Authorizing ProviderResult TypeResult StatusRandal Rovinski [facility] ORDERABLES Final Result * (ABNORMAL) UA Macroscopic with reflex to Microscopic and Culture - Lab Collect (11/14/2024 10:59 AMCDT)ComponentValueRef RangeTest MethodAnalysis Time Performed AtPathologist SignatureColor UrineYellowColorless, Straw, Light Yellow, Sksddd8111/14/2024 11:02 AM CDTSPHP LABORATORYAppearance UrineClearClear 11/14/2024 11:02 AM CDTSPHP LABORATORYGlucose UrineNegativeNegative mg/dL 11/14/2024 11:02 AM CDTSPHP LABORATORYBilirubin UrineNegativeNegative 11/14/2024 11:02 AM CDTSPHP LABORATORYKetones UrineNegativeNegative mg/dL 11/14/2024 11:02 AM CDTSPHP LABORATORYSpecific [place] Urine1.0101.003 - 1.035 11/14/2024 11:02 AM CDTSPHP LABORATORYBlood VzqnkWigzgegoDzxbgkwy19/14/2025 11:02 AM CDTSPHP LABORATORYpH Urine5.55.0 - 7.007 11:02 AM CDTSPHP LABORATORYProtein Albumin UrineNegativeNegative mg/dL11/14/2024 11:02 AM CDT SPHP LABORATORYUrobilinogen Urine0.20.2, 1.0 E.U./dL11/14/2024 11:02 AM CDT SPHP LABORATORYNitrite IyuzcYgschjefPfzglcrq94/14/2025 11:02 AM CDTSPHP LABORATORYLeukocyte Esterase UrineSmall(A)Xchuyogg27/14/2025 11:02 AM CDTSPHP LABORATORYSpecimen (Source)Anatomical Location / LateralityCollection Method / VolumeCollection TimeReceived TimeUrineMID-STREAM URINE SPECIMEN / UnknownNon- blood Collection / Tfrmijh6411/14/2024 10:59 AM CDT11/14/2024 10:59 AM CDT Narrative Authorizing ProviderResult TypeResult StatusHaRangely District Hospital PA-CLAB - URINE ORDERABLESFinal ResultPerforming OrganizationAddressCity/State/ZIP CodePhone Number [facility] [address] [phone] * DX AXIAL HIPS/SPINE (08/22/2024 9:38 AM CDT)Anatomical RegionLaterality ModalityDexaBone Mineral DensitySpecimen (Source)Anatomical Location / LateralityCollection Method / VolumeCollection TimeReceived Time Narrative 08/24/2024 10:12 AM CDT Images from the original result were not included. [address] [address] Phone: ?? Fax: Impression The most negative and valid T-score of -1.0 at the level of the left femoral neck and left total hip corresponds with normal bone density according to WHO criteria for postmenopausal females and men age 50 and over. Results Lumbar spine T-score 0.8 , BMD 1.275 g/cm2. Left Femoral ??neck T-score -1.0 , BMD 0.902 g/cm2. Left Total hip T-score -1.0 , BMD 0.876 g/cm2. Right Femoral neck T-score -0.4, BMD ??0.981 g/cm2. Right Total hip T-score -0.9 , BMD ??0.900 g/cm2. Interval change Bone density compared to the prior study has changed at lumbar spine by +2.8%, at the right total hip by +2.3%. ??Ref 3 Percent changes not mentioned or within remaining regions are insignificant Please note that the differential diagnosis of BMD increase in the spine includes improvement due to pharmacotherapy vs inter-current progression of spine degeneration or fracture Fracture risk The estimated 10-year risk for a major osteoporotic fracture is 7.6% and for a hip fracture is 0.5%. FRAX was calculated based on information provided by the patient on the DXA questionnaire. FRAX may not accurately predict risk in patient on bisphosphonate and should not be used to assess the reduction in fracture risk in patients on treatment The risk of osteoporotic fracture increases approximately 2-fold for each 1.0 SD decrease in T-score. Low bone density is not the only risk factor for fracture; consider factors such as patient's age, fall risk, injury risk, previous osteoporotic fracture, family history of osteoporosis, etc. ?? Repeat For patients eligible for Medicare, routine testing is allowed once every 2 years. Testing frequency can be increased for patients on corticosteroids. Clinical correlation recommended Technical quality Satisfactory. Principal result portfolio assistant: Jayde Hamlin MD, [facility] Division of Endocrinology and Diabetes ?? Department of Medicine References: Ref. 1. WHO categories: ? T-score > -1.0 = normal . T-score -1.0 to -2.5 = low bone density T-score < -2.5 = osteoporosis . Ref. 2. 2015 ISCD official position statements: ??www.iscd.org. Ref. 3. ??Today's examination is compared to the technically similar prior study of the total hip and femur if available. Only changes deemed likely to be significant based on historical data are reported. According to the ISCD position statements, total hip rather than femoral neck regions are to be compared because larger areas give better precision. LSC = least significant changes at the [facility] (historical data) AP spine = ??0.032 g/cm2 ??(10/27/2006). ??Precision assessment for combinations of fewer than 4 vertebrae cannot presently be calculated Left hip = 0.029 g/cm2 ??(10/16/2006) Right hip = 0.018 g/cm2 ??(10/16/2006) Left mid radius = 0.043 g/cm2 ??(10/27/2006) Bilateral hip LSC is not known Please note that the differential diagnosis of increase in bone density at the lumbar spine includes improvement due to pharmacotherapy vs inter-current progression of spine degeneration or fracture. ?? Ref. 4 Fracture risk is calculated in patients aged 40 to 90 years old with low bone density not on osteoporosis treatment. A 10 year fracture risk of 3% and higher for hip fracture and 20% and higher for major osteoporotic fracture is considered higher than acceptable risk and might be an indication for medical treatment. Ref. 5. ??By definition, osteoporosis may be diagnosed in the presence or with the history of a low trauma or fragility fracture. ??Fragility and low trauma fracture is defined as a fracture resulting from the force of a fall from a standing height or less or a bone that breaks under conditions that would not cause a normal bone to break. ?? Ref. 6. NOF Physician's Guideline Website address: ??www.nof.org. Authorizing ProviderResult TypeResult StatusLominerva ROSAS DEXA ORDERABLES Final Result * CT Chest Lung Cancer Screen Low Dose Without (08/03/2024 1:47 PM CDT) Anatomical RegionLateralityModalityChest, SUBRAD CT BODY, UMP CT CHEST, RAD CT Computed TomographySpecimen (Source)Anatomical Location / LateralityCollection Method / VolumeCollection TimeReceived Time08/03/2024 1:47 PM CDT Impressions 08/03/2024 3:17 PM CDT IMPRESSION: 1. ??Negative for lung cancer screening purposes. 2. ??Emphysema. LungRADS CATEGORY: 2 : Benign. RADIOLOGIST RECOMMENDATION(S): Continue annual screening with low dose CT chest in twelve months. Narrative 08/03/2024 3:17 PM CDT EXAM: LOW DOSE LUNG CANCER SCREENING CT CHEST LOCATION: [facility] DATE: 08/03/2024 INDICATION: Lung cancer screening. History of smoking. High risk patient. COMPARISON: 04/09/2023. TECHNIQUE: Low dose lung cancer screening noncontrast CT chest. Dose reduction techniques were used. Images assessed using LungRADS 2022 criteria. FINDINGS: NODULES: 0.4 cm left lower lobe nodule (series 6, image 219) is unchanged. A 0.3 cm nodule along the left major fissure (series 6, image 173) is also unchanged. No new or enlarging pulmonary nodules. LUNGS AND PLEURA: Mild to moderate upper lung predominant emphysematous change. Mild biapical scarring. No lung masses or consolidations. No pleural effusions. MEDIASTINUM: No enlarged lymph nodes in the chest. No pericardial effusion. Mild atherosclerotic calcification of the thoracic aorta. CORONARY ARTERY CALCIFICATION: Previous intervention (stents or CABG). LIMITED UPPER ABDOMEN: Small hiatal hernia. MUSCULOSKELETAL: Unremarkable. Authorizing ProviderResult TypeResult StatusLouisbeatrice Gonzalez [facility] ORDERABLES Edited Result - Final * Albumin Random Urine Quantitative with Creat Ratio (07/12/2024 2:23 PM CDT) ComponentValueRef RangeTest MethodAnalysis TimePerformed AtPathologist SignatureCreatinine Urine mg/dL63.8mg/dL07/13/2024 5:21 PM [facility] LABORATORYComment:The reference ranges have not been established in urine creatinine. The results should be integrated into the clinical context for interpretation.Albumin Urine mg/L<12.0mg/L07/13/2024 5:21 PM [facility] LABORATORYComment:The reference ranges have not been established in urine albumin. The results should be integrated into the clinical context for interpretation.Albumin Urine mg/g Cr07/13/2024 5:21 PM [facility] Comment: Unable to calculate, urine albumin and/or urine creatinine is outside detectable limits. Microalbuminuria is defined as an albumin:creatinine ratio of 17 to 299 for males and 25 to 299 forfemales. A ratio of albumin:creatinine of 300 or higher is indicative of overt proteinuria. Due to biologic variability, positive results should be confirmed by a second, first-morning randomor 24-hour timed urine specimen. If there is discrepancy, a third specimen is recommended. When 2 out of 3 results are in the microalbuminuria range, this is evidence for incipient nephropathy and warrants increased efforts at glucose control, blood pressure control, and institution of therapy withan qsgpgxvkciy-nrofvflqim-gcwzwo (DONA) inhibitor (if the patient can tolerate it). ?? Specimen (Source)Anatomical Location / LateralityCollection Method / Volume Collection TimeReceived TimeUrineURINE SPECIMEN / UnknownNon-blood Collection / Ecvtnmr8507/12/2024 2:23 PM CDT07/12/2024 2:23 PM CDT Narrative Authorizing ProviderResult TypeResult StatusLominerva Gonzalez MDLAB - URINE ORDERABLES Final ResultPerforming OrganizationAddressCity/State/ZIP CodePhone Number [facility] Lab [address] [facility] [place], [place] [id number], [place] * (ABNORMAL) Lipid panel reflex to direct LDL Fasting (07/12/2024 2:20 PM CDT) ComponentValueRef RangeTest MethodAnalysis TimePerformed AtPathologist IuogqikolCdcuevurhov058<200 mg/dL07/13/2024 5:37 PM CDTUU LABORATORY Vsbjfnejmdeqf739<150 mg/dL07/13/2024 5:37 PM CDTUU LABORATORYDirect Measure HDL42(L)>=50 mg/dL07/13/2024 5:37 PM CDTUU LABORATORYLDL Cholesterol Bwyhyqecqs44<100 mg/dL07/13/2024 5:37 PM CDTUU LABORATORYNon HDL Abfzfxjgvre28 <130 mg/dL07/13/2024 5:37 PM CDTUU LABORATORYPatient Fasting > 8hrs?No 07/13/2024 5:37 PM CDTUU LABORATORYSpecimen (Source)Anatomical Location / LateralityCollection Method / VolumeCollection TimeReceived TimeBloodSTRUCTURE OF LEFT UPPER LIMB / UnknownVenipuncture / Foaoejr0807/12/2024 2:20 PM CDT 07/12/2024 2:21 PM CDT Narrative [facility] - 07/13/2024 5:37 PM CDT Cholesterol Desirable: < 200 mg/dL Borderline High: 200 - 239 mg/dL High: >= 240 mg/dL Triglycerides Normal: < 150 mg/dL Borderline High: 150 - 199 mg/dL High: 200-499 mg/dL Very High: >= 500 mg/dL Direct Measure HDL Female: >= 50 mg/dL Male: >= 40 mg/dL LDL Cholesterol Desirable: < 100 mg/dL Above Desirable: 100 - 129 mg/dL Borderline High: 130 - 159 mg/dL High: ??160 - 189 mg/dL Very High: >= 190 mg/dL Non HDL Cholesterol Desirable: < 130 mg/dL Above Desirable: 130 - 159 mg/dL Borderline High: 160 - 189 mg/dL High: 190 - 219 mg/dL Very High: >= 220 mg/dL Authorizing ProviderResult TypeResult StatusLominerva Gonzalez MDLAB - BLOOD ORDERABLES Final ResultPerforming OrganizationAddressCity/State/ZIP CodePhone Number [facility] [address] [facility], Room 3-580 [place] [address], [place] * COLONOSCOPY (04/30/2023 7:16 AM PATTERN DEVELOPER)ComponentValueRef RangeTest MethodAnalysis TimePerformed AtPathologist SignatureCOLONOSCOPYWestbrook Medical Center [address] [facility] [place] [address] [phone] ? Endoscopy Department Patient Name: Dinah Alegre ? Procedure Date: 04/30/2023 7:16 AM ? Date of : 1960 ?Admit Type: Outpatient Age: 63 ? Room: #3 ? Gender: Female ?Note Status: Finalized Attending MD: JANIE PACHECO MD, ?? Total Sedation Time: Procedure: ? Colonoscopy Indications: ? Hematochezia Providers: ? JANIE PACHECO MD, Sherie Ivey RN Referring MD: ?FAN SUTHERLAND Medicines: ? Monitored Anesthesia Care Complications: ? No immediate complications. Procedure: ? Pre-Anesthesia Assessment: ? - Prior to the procedure, a History and Physical was ? performed, and patient medications and allergies were ? reviewed. The patient is competent. The risks and ? benefits of the procedure and the sedation options and ? risks were discussed with the patient. All questions ? were answered and informed consent was obtained. ? Patient identification and proposed procedure were ? verified by the physician in the procedure room. ? Mental Status Examination: alert and oriented. Airway ? Examination: normal oropharyngeal airway and neck ? mobility. Respiratory Examination: clear to ? auscultation. CV Examination: normal. Prophylactic ? Antibiotics: The patient does not require prophylactic ? antibiotics. Prior Anticoagulants: The patient has ? taken Eliquis (apixaban), last dose was 3 days prior ? to procedure. ASA Grade Assessment: II - A patient ? with mild systemic disease. After reviewing the risks ? and benefits, the patient was deemed in satisfactory ? condition to undergo the procedure. The anesthesia ? plan was to use monitored anesthesia care (MAC). ? Immediately prior to administration of medications, ? the patient was re-assessed for adequacy to receive ? sedatives. The heart rate, respiratory rate, oxygen ? saturations, blood pressure, adequacy of pulmonary ? ventilation, and response to care were monitored ? throughout the procedure. The physical status of the ? patient was re-assessed after the procedure. ? After obtaining informed consent, the colonoscope was ? passed under direct vision. Throughout the procedure, ? the patient's blood pressure, pulse, and oxygen ? saturations were monitored continuously. The ? Colonoscope was introduced through the anus and ? advanced to the terminal ileum. The colonoscopy was ? performed without difficulty. The patient tolerated ? the procedure well. The quality of the bowel ? preparation was good. ? Findings: ? The terminal ileum appeared normal. ? Eight sessile polyps were found in the rectum, sigmoid colon and ? transverse colon. The polyps were small in size. These polyps were ? removed with a cold biopsy forceps. Resection and retrieval were ? complete. ? A few small-mouthed diverticula were found in the sigmoid colon. ? External and internal hemorrhoids were found. The hemorrhoids were small. ? Impression: ?- The examined portion of the ileum was normal. ? - Eight small polyps in the rectum, in the sigmoid ? colon and in the transverse colon, removed with a cold ? biopsy forceps. Resected and retrieved. ? - Diverticulosis in the sigmoid colon. ? - External and internal hemorrhoids. Recommendation: ?- Await pathology results. ? electronically signed by Janie Pacheco JANIE PACHECO MD 04/30/2023 8:46:14 AM I was physically present for the entire viewing portion of the exam. Signature of teaching physician Elvira/Ga PACHECO MD Number of Addenda: 0 Note Initiated On: 04/30/2023 7:16 AM Scope In: 8:07:10 AM Scope Out: 8:25:06 AMRADIOLOGY RESULTSSpecimen (Source)Anatomical Location / LateralityCollection Method / VolumeCollection TimeReceived Time04/30/2023 7:16 AM PATTERN DEVELOPER Narrative Authorizing ProviderResult TypeResult StatusFan REDMAN-CPROCEDURESFinal ResultPerforming OrganizationAddressCity/State/ZIP CodePhone Number RADIOLOGY RESULTS * (ABNORMAL) COLOGUARD([place]) (09/02/2021 8:17 AM CDT)ComponentValueRef RangeTest MethodAnalysis TimePerformed AtPathologist Signature COLOGUARD-ABSTRACTPositive(A)Mioeyevk74/09/2022 6:03 PM CDTEXDIRAmed (CLIA #:[id number])Comment: POSITIVE TEST RESULT. A positive Cologuard result should be followed with a colonoscopy or visual examination of the colon. The normal value (reference range) for this assay is negative. TEST DESCRIPTION: Composite algorithmic analysis of stool DNA-biomarkers with hemoglobin immunoassay. ?? Quantitative values of individual biomarkers are not reportable and are not associated with individual biomarker result reference ranges. Cologuard is intended for colorectal cancer screening ofadults of either sex, 45 years or older, who are at average-risk for colorectal cancer (CRC). Cologuard has been approved for use by the U.S. FDA. The performance of Cologuard was established in a cross sectional study of average-risk adults aged 50-84. Cologuard performance in patients ages 45 to 49 years was estimated by sub-group analysis of near-age groups. Colonoscopies performed for a positive result may find as the most clinically significant lesion: colorectal cancer [4.0%], advanced adenoma (including sessile serrated polyps greater than or equal to 1cm diameter) [20%] or non- advanced adenoma [31%]; or no colorectal neoplasia [45%]. These estimates are derived from a prospective cross-sectional screening study of 10,000 individuals at average risk for colorectal cancer who were screened with both Cologuard and colonoscopy. (Anushka Ahuja al, N Engl J Med 2014;370(14):0946-2883.) Cologuard may produce a false negative or false positive result (no colorectal cancer or precancerous polyp present at colonoscopy follow up). A negative Cologuard test result does not guarantee the absence of CRC or advanced adenoma (pre-cancer). The current Cologuard screening interval is every 3 years. ([place] Cancer Society and U.S. Multi-Society Task Force). Cologuard performance data in a 10,000 patient pivotal study using colonoscopy as the reference method can be accessed at the following location: www.JustBook.sCoolTV/results. Additional description of the Cologuard test process, warnings and precautions can be found at www.[email or web address].com. Specimen (Source)Anatomical Location / LateralityCollection Method / Volume Collection TimeReceived TimeStool specimen (specimen)09/02/2021 8:17 AM CDT 09/03/2021 2:36 PM CDT Narrative Authorizing ProviderResult TypeResult StatusLominerva Gonzalez MDLABORATORYFinal Result Performing OrganizationAddressCity/State/ZIP CodePhone Number [facility] [address] [place] [address], [place] [phone] [facility] (CLIA #:[id number]) [address] [place] [address] * HIV Antigen Antibody Combo (08/22/2021 10:53 AM CDT)ComponentValueRef Range Test MethodAnalysis TimePerformed AtPathologist SignatureHIV Antigen Antibody GeeiuEmsjiykmkzuElkluquplpp78/21/2022 7:17 PM CDTUM SPECIALTY CORE/PROT/ENDO Comment:HIV-1 p24 Ag & HIV-1/HIV-2 Ab Not DetectedSpecimen (Source)Anatomical Location / LateralityCollection Method / VolumeCollection TimeReceived Time BloodSTRUCTURE OF LEFT UPPER LIMB / UnknownVenipuncture / Wwtalcc5008/22/2021 10:53 AM CDT08/22/2021 10:53 AM CDT Narrative Authorizing ProviderResult TypeResult StatusReina Gonzalez MDLAB - BLOOD ORDERABLES Final ResultPerforming OrganizationAddressCity/State/ZIP CodePhone Number [facility]PROT/ENDO [facility]/Prot/Endo 500 [facility], Room [address] [phone] * Hepatitis C antibody (06/02/2017 11:47 AM PATTERN DEVELOPER)ComponentValueRef RangeTest MethodAnalysis TimePerformed AtPathologist SignatureHepatitis C Antibody NonreactiveNR^Jijrxzcapyl27/31/2018 9:08 AM CSTUNGRACE COTTAGE HOSPITALComment: Assay performance characteristics have not been established for newborns, infants, and children Specimen (Source)Anatomical Location / LateralityCollection Method / Volume Collection TimeReceived TimeBlood specimen (specimen)06/02/2017 11:47 AM PATTERN DEVELOPER 06/02/2017 11:48 AM PATTERN DEVELOPER Narrative Authorizing ProviderResult TypeResult StatusSarajaleel Dunbar APRN CNPLAB - BLOOD ORDERABLESFinal ResultPerforming OrganizationAddressCity/State/ZIP Code Phone Number [facility] [address] * Mammogram - HIM Scan (06/04/2014)Anatomical RegionLateralityModalityOther Narrative 06/04/2014 Patient Reported: Mammo in cross ansari 06/2014, normal. Authorizing ProviderResult TypeResult StatusPatient ReportedIMG MAMMOGRAPHY ORDERABLESFinal Result from Last 3 Months or Most Recently Relevant to Health Maintenance Insurance * Guarantor: Dinah Alegre TypeRelation to PatientDate of BirthPhone Billing AddressPersonal/HunipxLyvs1960 [address] [address] [place] [address] [place] [address] * Guarantor: Dinah Alegre TypeRelation to PatientDate of BirthPhone Billing AddressPersonal/QzngtuWxin1960 [address] [address] [place] [address] * Guarantor: Dinah Alegre TypeRelation to PatientDate of BirthPhone Billing OonknhnJyhmxysxckPkqm1960 [address] [address] Advance Directives For more information, please contact: [phone] * Full Code (Latest Code Status on File) Date ActivatedDate InactivatedComments10/24/2022 8:34 AM04/05/2023 7:00 PMQuestion AnswerCommentsCode status determined by:* Discussion with patient/ legal decision maker * Full Code Date ActivatedDate InactivatedComments10/23/2022 11:43 AM10/24/2022 8:34 AMAll basic and advanced life-sustaining interventions are performed as appropriate QuestionAnswerCommentsCode status determined by:* Discussion with patient/ legal decision maker * Full Code Date ActivatedDate InactivatedComments11/06/2021 7:58 PM11/09/2021 3:13 PMAll basic and advanced life-sustaining interventions are performed as appropriateQuestion AnswerCommentsCode status determined by:* Discussion with patient/ legal decision maker * Full Code Date ActivatedDate FkqfoxvmatzNwhlpxbo21/18/2016 2:21 PM04/03/2019 2:33 PM * DNR/DNI Date ActivatedDate ZvbiplodddpIbgkdcze90/18/2016 3:04 AM02/19/2016 2:21 PM Care Teams Team MemberRelationshipSpecialtyStart [place] [address] [place] [address] [phone] PCP - GeneralFamily Llgapkcj23/15/23 Digna Vega, [employer] DUDE WRANGLER [address] [place] [address] Nurse PractitionerNurse Practitioner Psych/Mental Health05/30/16 Joseluis Carrillo MD [address] [place] [address] Family Medicine - Sports Medicine11/13/16 Zeynep Richmond, [facility] [address] [place] [address] Social WorkerSocial Worker - Clinical06/15/20 Reina Gonzalez MD 2270 [facility] 200 [place], [place] [id number] Assigned PCP01/18/22 Fan Sutherland PA-C [address] [place] [address] Physician AssistantGastroenterology09/25/22 Portia Ventura APRN CNP 9 [place] [address] Nurse PractitionerCardiology10/22/22 Zeynep Richmond [facility] [address]50 [place] [address] Assigned Behavioral Health Provider08/25/23 Denae Gomez DPM, Podiatry/Foot and Ankle Surgery [address] [facility] 300 [place], [place] [address] Assigned Musculoskeletal Provider11/24/23 Sky Lynne PA-C 6545 [facility] 450 [place] [address] Assigned Neuroscience Provider01/25/24 Yudi Manuel PA-C [address] [facility] 377 [place], [place] [address] Physician AssistantUrology1 Domo Hammonds MD [address] [place] [address] [place] [address] PulmonologistPulmonary Disease07/18/24 Funmilayo Ferrara APRN [facility] 909 [place], [place] 2308[address] Assigned Surgical Provider09/23/24 Kei Rodas MD [address] [place] [address] 267855 Assigned Heart and Vascular Provider12/24/24 Lili Michael MD [address] [facility] AF[place]IN 200 [place] [address] HospitalistEndocrinology, Diabetes, and Frbkwemwym60/10/25 Fan Sutherland, PA-C [address] [place] [address] Physician GgyqqfvmvCzdfxkiuyhuyjpid41/13/25 Domo Hammonds MD 500 [place] [address] Assigned Pulmonology Syxvwnvn40/23/25
--- OUTSIDE RECORDS SUMMARY | 2025-04-30 22:57 | XMS_ITS | Encounter Summary ---
Author Organization [facility] Address [address] [place] [address] Care Team Providers Care Mri Assistant Name Role Phone Digna Vega NINA VENDING SERVICE TECHNICIAN Unavailable Joseluis Carrillo MD Unavailable Zeynep Richmond PROGRAM MANAGER SLP Unavailable Reina Gonzalez MD Unavailable Fan MullinsC Unavailable [phone] Portia Ventura INTELLIGENCE SENIOR SERGEANT VENDING SERVICE TECHNICIAN Unavailable [phone] Reina Gonzalez MD Primary Care Provider Zeynep Richmond PROGRAM MANAGER SLP Unavailable Denae Gomez DPM, Podiatry /Foot and Ankle Surgery Unavailable Sky Lynne PA-C Unavailable [phone] Yudi Manuel PA-C Unavailable Domo Hammonds MD Unavailable Funmilayo Ferrara APRN VENDING SERVICE TECHNICIAN Unavailable Kei Rodas MD Unavailable Lili Michael MD Unavailable Fan Mullins PA-C Unavailable [phone] Reason for Visit * ReasonOnset DateCommentsMedication Cfenxuz9603/22/2025Refill Eyghbnf9303/22/2025 Encounter Details DateTypeDepartmentCare Team (Latest Contact Info)Chnngorxpje12/19/2025Telephone [facility] [address] [phone] Domo Hammonds MD [address] [place] [address] Medication Request; Refill Request Social History Tobacco UseTypesPacks/DayYears UsedDateSmoking Tobacco: WsamnsCmsxjwddxl577.9 05/04/1971 - 03/30/2014OtherPassive Smoke Exposure: NeverSmokeless Tobacco: Former Comments:Patient stated- she is currently smoking E-cig daily. Alcohol UseStandard Drinks/WeekCommentsYes0 (1 standard drink = 0.6 oz pure alcohol)1 small cider every 2 weeksSocial Connection and Isolation PanelAnswer Date RecordedFrequency of Communication with Friends and FamilyNot on file 07/11/2024How often do you get together with friends or relatives?More than three times a week07/11/2024ttends Caodaism ServicesNot on file07/11/2024 Active Member of Clubs or OrganizationsNot on file07/11/2024ttends Club or Organization MeetingsNot on file07/11/2024Marital StatusNot on file07/11/2024 PHQ-2AnswerDate RecordedPHQ-2 Snylq741Finsanpete [facility] [place] of Occupational Health - Occupational Stress QuestionnaireAnswerDate [...] in an abandoned building, in an overnight residential, or couch-surfing.)Yes09/30/2024re you worried about losing your [...] CommentsNoSex and Gender InformationValueDate RecordedSex Assigned at ZhlkiVxeuey17/06/2020 7:20 AM CSTLegal FodDfaqjb85/04/2012 3:20 AM CSTGender XyatwhfaDffvhm88/06/2020 7:20 AM CSTSexual QenycsvfunmShkhhcdk01/06/2020 7:20 AM CSTdocumented as of this encounter Miscellaneous Notes * Telephone Encounter - Kateryna Oscar - 03/22/2025 9:23 AM CST [facility] Phone Message May a detailed message be left on voicemail: yes Reason for Call: Medication Refill Request Has the patient contacted the pharmacy for the refill? Yes Name of medication being requested: albuterol (PROAIR HFA/PROVENTIL HFA/VENTOLIN HFA) 108 (90 Base)MCG/ACT inhaler Provider who prescribed the medication: n/a Pharmacy: [place] [address] [place] [address] Date medication is needed: hunter Action Taken: Other: pulm Travel Screening: Not Applicable Date of Service: EACH COUNSELOR documented in this encounter Plan of Treatment DateTypeDepartmentCare Team (Latest Contact Info)Etrzjdxyxrk04/09/2026 10:00 AM CSTVirtual Visit [facility] [address] [place] F275 [facility] [phone] Zeynep Richmond, [address] [address] 05/19/2025 10:00 AM CSTVirtual Visit [facility] [address] [place] F275 [facility] [phone] Zeynep Richmond, [address] [address] 05/22/2025 10:00 AM CSTVirtual Visit [facility] [address] [place] F275 [facility] [phone] Digna Vega APRN [address] [phone] 05/26/2025 10:00 AM CSTVirtual Visit [facility] [address] [place] F275 [facility] [phone] Zeynep Richmond, [address] [address] 06/02/2025 10:00 AM CSTVirtual Visit [facility] [place] [phone] [facility] [address] [phone] Zeynep Richmond, [address] [address] 06/13/2025 1:00 PM CSTOffice Visit [facility] [place] 6363 [facility] 103 [place] [phone] Reina Gonzalez MD 2270 [facility] 200 [place], [place] [phone] Bart De PA-C 6306 [facility] 103 [place] [address] 06/15/2025 9:00 AM CSTAppointment [facility] [phone] [place] [address] 160 [place] [phone] Kei Rodas MD [address] [place] [address] 06/15/2025 10:[address] [address] [facility] 160 [place] [phone] Kei Rodas MD [address] [place] [address] 06/20/2025 11:00 AM CSTOffice Visit [facility] Vascular [address] 3rd [place] [phone] Kei Rodas MD [address] [place] [address] 07/17/2025 11:30 AM CDTVirtual Visit [facility] [address] [place] [phone] Reina Gonzalez MD 2270 [facility] AFSHIN 200 [place] [address] Fan Mullins, PAJeffC [address] [place] [address] 07/20/2025 11:10 AM CDTOffice Visit [address] [place] [phone] Reina Gonzalez MD [address] [place] [address] 200 [place] [address] 08/28/2025 12:00 PM CDTAncillary Procedure [facility] [address] [place] [phone] Domo Hammonds MD [address] [place] [address] 08/28/2025 1:00 PM CDTOffice Visit [facility] [address] [phone] Domo Hammonds MD [address] [place] [address] 09/04/2025 11:30 AM CDTVirtual Visit [place] [address] [facility] 200 [place] [phone] Lili Michael MD [address] [facility] 200 [place], [place] [address] 09/18/2025 11:40 AM CDTOffice Visit [facility] Heart [facility] 909 [place] [phone] Melissa Townsend NP 420 [facility] 508 [place], [place] [address] documented as of this encounter Visit Diagnoses Diagnosis COPD (chronic obstructive pulmonary disease) (H)- Primary Chronic airway obstruction, not elsewhere classified documented in this encounter Additional Health Concerns AssessmentNoted TimePHQ-9 Depression Total Score: 131 8:44 AM CDT documented as of this encounter Care Teams Team MemberRelationshipSpecialtyStart DateEnd Date Reina Gonzalez MD [address] [address] PCP - GeneralFamily Hchqovub22/15/23 Digna Vega APRN VENDING SERVICE TECHNICIAN [address] [place] [address] [phone] Nurse PractitionerNurse Practitioner Psych/Mental Health05/30/16 Joseluis Carrillo MD [address] [place] [address] Family Medicine - Sports Medicine11/13/16 Zeynpe Richmond, [facility] [address] [place] [address] Social WorkerSocial Worker - Clinical06/15/20 Reina Gonzalez MD 0 [facility] 200 [place] [address] Assigned PCP01/18/22 Fan Mullins PA-C [address] [place] [address] [place] [address] Physician AssistantGastroenterology09/25/22 Portia Ventura APRN VENDING SERVICE TECHNICIAN 909 [place] [address] Nurse PractitionerCardiology10/22/22 Zeynep Richmond, [facility] 2450 [place], [place] 614924 Assigned Behavioral Health Provider08/25/23 Denae Gomez DPZachery, Podiatry/Foot and Ankle Surgery [address] [facility] 300 [place], [place] [phone] Assigned Musculoskeletal Provider11/24/23 Sky Lynne PA-C 6545 [facility] 450 [place], [place] 4[address] Assigned Neuroscience Provider01/25/24 Yudi Manuel PA-C [address] [facility] 377 [place], [place] [phone] Physician AssistantUrology1 Domo Hammonds MD [address] [place] [address] PulmonologistPulmonary Disease07/18/24 Funmilayo Ferrara APRN VENDING SERVICE TECHNICIAN 909 [place], [place] 808745 Assigned Surgical Provider09/23/24 Kei Rodas MD 909 [place], [place] 486415 Assigned Heart and Vascular Provider12/24/24 Lili Michael MD [address] [facility] AFSHIN 200 [place], [place] [address] HospitalistEndocrinology, Diabetes, and Qszvgnauwu23/10/25 Fan Mullins PAJeffC [address] [place] [address] Physician GesenyunuGgoawkkbdcviqwzp27/13/25documented as of this encounter
--- OUTSIDE RECORDS SUMMARY | 2025-04-30 22:57 | XMS_ITS | Clinical Summary ---
Author Organization [facility] Address [address] [place] [address] Care Team Providers Care Sawmill Tally Clerk Name Role Phone Jennifer Aviles PA-C Primary Care Provider [phone] Source Comments You are receiving this document as you are listed as the primary care provider,follow-up provider, or the patient has been referred to you for consultation.This is in compliance with the Medicare andMedicaid EHR Incentive Program,which states Providers who transition their patient to another setting of careor provider of care or refers their patient to another provider of care shouldprovide summary care record for each transition of care or referral. [facility]otechnologiesTsaile Health CenterClearFlow Allergies Active AllergyReactionsCriticalityNoted GdivQiexcfruAyqtespzhwnpj73/06/2014 HYPONATREMIA HYPONATREMIA QvrxzyxQxfcjhb90/15/2012 Other reaction(s): Unknown Medications MedicationSigDispense QuantityRefillsLast FilledStart DateEnd DateStatus atorvastatin (LIPITOR) 40 MG tablet TAKE 1 TABLET (40 MG) BY MOUTH DAILY.Active ziprasidone (GEODON) 40 MG capsule Take 40 mg by mouth two times a day.01/12/2019Active clonazePAM (KLONOPIN) 1 MG tablet Take 1 mg by mouth two times a day.Active metoprolol succinate (TOPROL XL) 50 MG 24 hour release tablet Take 25 mg by mouth daily.Active buPROPion (WELLBUTRIN XL) 150 MG 24 hour release tablet Take 150 mg by mouth daily.Active omeprazole (PRILOSEC) 20 MG capsule Take 20 mg by mouth daily. Take 1 hour before a meal.Active doxylamine succinate (UNISOM) 25 MG tablet Take 75 mg by mouth daily at bedtime.Active aspirin 325 MG tablet Take 325 mg by mouth two times a day.Active polyethylene glycol 3350 (GLYCOLAX) powder Take 9 g by mouth daily as needed. 500 g Active Active Problems ProblemNoted DateDiagnosed DateCoronary artery disease involving rincon coronary artery of rincon heart01/24/2019Ischemic etkmwxttbgrouv40/23/2019Anorexia sfbgxro9309/13/2009Schizoaffective disorder, unspecified type09/13/2009 Overview (12/24/2016): Schizoaffective Disorder Posttraumatic stress /13/2010 Overview (12/24/2016): Post Traumatic Stress Disorder Prolonged Yndfymvvcfc29/13/2010 Overview (12/24/2016): LW Modifier: resolved ; Seizure NOS Bfaswkyl55/13/2010 Overview (12/24/2016): Migraine Without Aura Loss of teeth due to periodontal lvnsijw6709/13/2009 Overview (12/24/2016): Edentulous Periodontal Disease Restless legs syndrome (RLS)09/13/2009 Overview (12/24/2016): Restless Leg Syndrome Nkyjqedixtaf77/13/2010 Overview (12/24/2016): Constipation NOS Generalized anxiety nywukuxk91/28/2009 Overview (12/24/2016): Anxiety Disorder Generalized Aashvqzwunaqix52/28/2009 Overview (12/24/2016): Hypothyroidism Primary Tobacco use ysybdlrt64/28/2009 Overview (12/24/2016): Tobacco Abuse Disorder of bone and jwclshjal69/28/2009 Overview (12/24/2016): Osteopenia Obsessive-compulsive dvmbmbee32/28/2009 Overview (12/24/2016): Obsessive Compulsive Disorder Disorder of lipoid aglqzkpgdx92/28/2009 Overview (12/24/2016): Dyslipidemia Old myocardial hzopntvylo12/28/2009 Overview (12/24/2016): LW Modifier: anterior wall LW Onset: 2008 ; [place] Old Resolved Problems ProblemNoted DateDiagnosed DateResolved DateMalaise and jxhswts4409/13/2009 01/24/2019 Overview (12/24/2016): Fatigue Symptoms involving cardiovascular mdesul82 Overview (12/24/2016): Pulse Orthostatic Mixed, or nondependent drug abuse Overview (12/24/2016): 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 fxjzasht98/13/2010 10/24/2009 Overview (12/24/2016): Depression Major Recurrent w Psychosis Encounter for rfxuavshgkwnj00 Overview (12/24/2016): Tubal Ligation Elective Absence of wbsayihaxpdc35 Overview (12/24/2016): Amenorrhea Bipolar I Overview (12/24/2016): Bipolar I Dis NOS Adjustment etzyxozt33 Overview (12/24/2016): Adjustment Dis NOS Depressive vxnanpcl98 Overview (12/24/2016): Depression NOS Family History Medical HistoryRelationNameCommentsDepressionBirth MotherRelationNameStatus CommentsBirth Mother Social History Tobacco UseTypesPacks/DayYears UsedDateSmoking Tobacco: FormerSmokeless Tobacco: Current Comments:e-cig Alcohol UseStandard Drinks/WeekCommentsYes0 (1 standard drink = 0.6 oz pure alcohol)2 drinks on Saturdays, and cokeCommentsNoSex and Gender InformationValueDate RecordedSex Assigned at BirthNot on fileLegal SexFemale 08/18/2014 7:15 PM CDTGender IdentityNot on fileSexual OrientationNot on file Last Filed Vital Signs Vital SignReadingTime TakenCommentsBlood Zcaebtpd81/6102 8:01 AM MACHINE 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 8:00 AM MACHINE SPRAYER Plan of Treatment Health MaintenanceDue DateLast DoneCommentsCervical Cancer Screening Due 1960Colon Cancer Screening Plan Due1960Hep C Screening (Preventive Services)1960Medicare Annual Wellness Visit1960 4223Kgifkbctc1960 Pneumococcal Vaccine 50+ Yrs (1 of 2 - PCV)12/31/1978Zoster/Shingles Vaccine (1 of 2)12/31/20097973Lruzwpiptjp49/13/, 10/18/2009, 04/06/2009COVID-19 Vaccine (3 - 2024- season)/09/2020, 07/16/2020Influenza Vaccine (#1)/, 02/13/2016, 04/18/2015DTaP/Tdap/Td Vaccine (3 - Tdap) 5106/19/2014, 12/02/2011RSV Vaccine (1 - 1-dose 75+ series)12/31/2034 HepA VaccineAged OutNo longer eligible based on patient's age to complete this topicHepB VaccineAged OutNo longer eligible based on patient's age to complete this topicHib VaccineAged OutNo longer eligible based on patient's age to complete this topicIPV (Polio) VaccineAged OutNo longer eligible based on patient's age to complete this topicMCV4 VaccineAged OutNo longer eligible based on patient's age to complete this topicMeningococcal B VaccineAged OutNo longer eligible based on patient's age to complete this topic Procedures Procedure NamePriorityDate/TimeAssociated DiagnosisCommentsLIPID PANEL & DIRECT LDL (IF NEEDED)Kudinws8411/13/2009 6:45 AM CDT from Last 3 Months or Most Recently Relevant to Health Maintenance Results * Lipid Panel and Direct LDL(If Needed) (11/13/2009 6:45 AM CDT)ComponentValue Ref RangeTest MethodAnalysis TimePerformed AtPathologist SignatureCholesterol 1690 - 200 mg/dLHP UHRCWMEEZFOtpdbggxaljpj811 - 149 mg/dLHP CONVERSIONHDL Vxkwxorbvsf83>39 mg/dLHP CONVERSIONCholesterol/HDL Ratio Screen3.9No normal rangeHP CONVERSIONLDL Wxowesfaai15981 - 130 mg/dLHP CONVERSIONHours Fasting unlnownNo normal rangeHP CONVERSIONComment: unk Specimen (Source)Anatomical Location / LateralityCollection Method / Volume Collection TimeReceived Time11/13/2009 6:45 AM CDT Narrative Authorizing ProviderResult TypeResult StatusMichoward Hung DOLAB_1Final Result Performing OrganizationAddressCity/State/ZIP CodePhone Number HP CONVERSION from Last 3 Months or Most Recently Relevant to Health Maintenance Insurance Care Teams Team MemberRelationshipSpecialtyStart DateEnd Date Jennifer Aviles, [place] [address] [facility] [address] [place] [address] PCP - General08/05/10
--- OUTSIDE RECORDS SUMMARY | 2025-04-30 22:57 | XMS_ITS | Clinical Summary ---
Author Organization [facility] Address [address] [place] [address] Care Team Providers Care Brakeshoe Repairer Name Role Phone Elsewhere, Pcp Primary Care Provider Unavailabl e Source Comments Patient records contain information from all sites at [facility]. For routine questions regarding patient records, call [phone] during business hours, M-F 8:00 AM - 5:00 PM Central Time. Record requests for emergency care only can be directed to [phone] at any time.[facility] Allergies Active AllergyReactionsCriticalityNoted DateCommentsOxcarbazepineOther (see comments)10/07/2013 HYPONATREMIA HYPONATREMIA HYPONATREMIA HYPONATREMIA HYPONATREMIA HYPONATREMIA Owvmmvb-Mta-Zsn Reductase InhibitorsOther (see comments)12/17/2011 Other reaction(s): Unknown Other reaction(s): Unknown but tolerates atorvastatin Medications MedicationSigDispense QuantityRefillsLast FilledStart DateEnd DateStatus omeprazole (PriLOSEC) [address] capsule Take 20 mg by mouth daily before morning meal.Active albuterol 90 mcg/actuation inhaler Inhale 2 puffs every 6 (six) hours.Active alendronate (Fosamax) 70 mg tablet Take 70 mg by mouth over 168 hr.5Active apixaban (Eliquis) 5 mg tablet Take 5 mg by mouth 2 (two) times a day.4Active aspirin [address] tablet Take 81 mg by mouth daily.4Active atorvastatin (Lipitor) 80 mg tablet Take 80 mg by mouth daily.5Active buPROPion XL (Wellbutrin XL) 150 mg 24 hr tablet Take 150 mg by mouth daily.12/20/2018Active clonazePAM (KlonoPIN) 1 mg tablet Take 1 mg by mouth 2 (two) times a day.11/02/2024tive clopidogreL (Plavix) 75 mg tablet Take 25 mg by mouth daily.09/15/2024tive doxylamine (Unisom) 25 mg tablet Take 50 mg by mouth at bedtime.Active Repatha SureClick 140 mg/mL pen injector injection Inject 1 mL under the skin over 336 hr.10/19/2024tive famotidine (Pepcid) 20 mg tablet Take 20 mg by mouth daily.Active ferrous sulfate tablet Take 325 mg by mouth daily.Active Trelegy Ellipta 100-62.5-25 mcg inhaler Inhale 1 puff daily.08/05/2021ctive lisinopriL 2.5 mg tablet Take 2.5 mg by mouth daily.05/05/2024tive magnesium oxide 500 mg capsule Take 1 capsule by mouth daily.01/12/2023ctive metoprolol succinate (Toprol XL) 50 mg 24 hr tablet Take 25 mg by mouth daily.12/10/2018Active mirtazapine (Remeron) 30 mg tablet Take 30 mg by mouth at bedtime.08/30/2024tive nitroglycerin (Nitrostat) 0.[address] 0.4 mg under the tongue every 5 (five) minutes as needed for chest pain. 10/22/2021ctive ondansetron ODT (Zofran-ODT) 4 mg disintegrating tablet Dissolve 4 mg in the mouth every 8 (eight) hours as needed.11/05/2024tive QUEtiapine (SEROqueL) 50 mg tablet Take 50 mg by mouth daily.01/07/2024ctive solifenacin (Vesicare) 10 mg tablet Take 10 mg by mouth daily.08/31/2024tive ziprasidone (Geodon) 40 mg capsule Take 40 mg by mouth 2 (two) times a day with meals.01/12/2019Active Social History Tobacco UseTypesPacks/DayYears UsedDateSmoking Tobacco: FormerCigarettes1.553 Started: 1972 Tobacco Cessation:Counseling Given: Not Answered Alcohol UseStandard Drinks/WeekCommentsNot Currently0 (1 standard drink = 0.6 oz pure alcohol)CommentsUnknownSex and Gender InformationValueDate Recorded Sex Assigned at BirthNot on fileLegal PqwYknkbx37/07/2025 2:32 PM CDTGender IdentityNot on fileSexual OrientationNot on file Last Filed Vital Signs Vital SignReadingTime TakenCommentsBlood Ymddtynz536/5307 6:15 PM CDT Ezaey580311/07/2024 6:15 PM LUCIovgjuhcolq43.9 ??C (98.5 ??F)11/07/2024 2:56 PM CDTRespiratory Gexr116611/07/2024 6:15 PM CDTOxygen Inyzaiodtt49%11/07/2024 6:15 PM CDTInhaled Oxygen Concentration--Sfwhjx99.5 kg (186 lb 2.9 oz)11/07/2024 3:03 PM CDTHeight--Body Mass Index-- Plan of Treatment Health MaintenanceDue DateLast DoneCommentsCT Wrljbldbibnb1960 Cervical/Vaginal Cancer Opvupkuht1960HIV Qncfvvwzn1960Hepatitis C Ickuijacy54/30/2186Lguqolpwy1960Pneumococcal vaccine (50+ years) (2 of 2 - PCV)/2Depression Screening (Annual PHQ-2)5Cologuard /06/2021Fall Risk Screen (Annual)5COVID-19 Vaccine ( season), 11/03/2023, 02/20/2022, Additional history existsInfluenza Vaccine (#1), 01/15/2023, 02/20/2022, Additional history existsDTaP,Tdap,and Td Vaccines (3 - Td or Tdap)04/18/2025 04/18/2015, 12/02/2011Creatinine Level (Kidney Function Test)11/14/2025 11/14/2024, 11/07/2024, 11/05/2024, Additional history existsPotassium Level , 11/07/2024, 11/05/2024, Additional history existsSodium Level6011/14/2024, 11/07/2024, 11/05/2024, Additional history exists Fasting Glucose for Diabetes Acsnprhyr51, 11/07/2024, 11/05/2024, Additional history yycfhnPtxnzlarjtl86olorectal Cancer Dhxlhpyeezel13/28/2028Zoster YtmkqiegFmdannxhj00/23/2022, 2RSV vaccine - (32-36 weeks) or 50+ mpvyjUdmahbcef21/15/2023IPV VaccinesAged OutNo longer eligible based on patient's age to complete this topic Procedures Procedure NamePriorityDate/TimeAssociated DiagnosisCommentsCOMPREHENSIVE METABOLIC PANEL, S/PSTAT11/07/2024 3:41 PM CDT from Last 3 Months or Most Recently Relevant to Health Maintenance Results * (ABNORMAL) Comprehensive Metabolic Panel (11/07/2024 3:41 PM CDT)Component ValueRef RangeTest MethodAnalysis TimePerformed AtPathologist Signature Potassium, P4.03.6 - 5.2 mmol/L11/07/2024 4:06 PM CDTRDWGSodium, I515457 - 145 mmol/L11/07/2024 4:06 PM CDTRDWGChloride, H46159 - 107 mmol/L11/07/2024 4:06 PM CDTRDWGBicarbonate, P2622 - 29 mmol/L11/07/2024 4:06 PM CDTRDWGAnion Gap, P 137 - 1507 4:06 PM CDTRDWGBUN (Blood Urea Nitrogen), P23(H)6 - 21 mg/dL11/07/2024 4:06 PM CDTRDWGCreatinine1.33(H)0.59 - 1.04 mg/dL11/07/2024 4:06 PM CDTRDWGEstimated GFR (eGFR)45(L)>=60 mL/min/BSA11/07/2024 4:06 PM CDT RDWGComment: Estimated GFR calculated using the 2020 CKD_EPI creatinine equation. Calcium, Total, P8.5(L)8.8 - 10.2 mg/dL11/07/2024 4:06 PM CDTRDWGGlucose, P9570 - 140 mg/dL11/07/2024 4:06 PM CDTRDWGProtein, Total, P6.96.3 - 7.9 g/dL 11/07/2024 4:06 PM CDTRDWGAlbumin, P4.13.5 - 5.0 g/dL11/07/2024 4:06 PM CDTRDWG Aspartate Aminotransferase (AST), P208 - 43 U/L11/07/2024 4:06 PM CDTRDWG Alkaline Phosphatase, P119(H)35 - 104 U/L11/07/2024 4:06 PM CDTRDWGAlanine Aminotransferase (ALT), P197 - 45 U/L11/07/2024 4:06 PM CDTRDWGBilirubin, Total, P0.20.0 - 1.2 mg/dL11/07/2024 4:06 PM CDTRDWGSpecimen (Source)Anatomical Location / LateralityCollection Method / VolumeCollection TimeReceived TimeBlood (Blood, Venous)11/07/2024 3:41 PM CDT11/07/2024 3:45 PM CDT Narrative Authorizing ProviderResult TypeResult StatusBentamiko Maharaj M.D.LAB BLOOD ADD-ONFinal ResultPerforming OrganizationAddressCity/State/ZIP CodePhone Number [facility] [address] [address], [facility] R[facility] [place] [address] [phone] from Last 3 Months or Most Recently Relevant to Health Maintenance Insurance * Guarantor: Dinah Alegre TypeRelation to PatientDate of BirthPhone Billing AddressPersonal/IdufxxEswr1960 [address] [place] [phone] Care Teams Team MemberRelationshipSpecialtyStart DateEnd Date Elsewhere, Pcp PCP - GeneralInternal Medicine11/07/24
--- OUTSIDE RECORDS SUMMARY | 2025-04-30 22:57 | XMS_ITS | Encounter Summary ---
Author Organization [facility] Address [address] [place] [address] Care Team Providers Care Refined Syrup Operator Name Role Phone Digna Vega NINA SKATES OPERATOR Unavailable Joseluis Carrillo MD Unavailable Zeynep Richmond HOME SPECIALIST Unavailable Reina Gonzalez MD Unavailable Fan MullinsC Unavailable [phone] Portia Ventura SENIOR SUPPORT ANALYST SKATES OPERATOR Unavailable Reina Gonzalez MD Primary Care Provider Zeynep Richmond HOME SPECIALIST Unavailable Denae Gomez DPM, Podiatry /Foot and Ankle Surgery Unavailable Sky Lynne PA-C Unavailable [phone] Yudi Manuel PA-C Unavailable Domo Hammonds MD Unavailable Funmilayo Ferrara APRN SKATES OPERATOR Unavailable Kei Rodas MD Unavailable Lili Michael MD Unavailable Fan Mullins PA-C Unavailable [phone] Encounter Details DateTypeDepartmentCare Team (Latest Contact Info)Smkbggkjlbr16/13/2025Travel Social History Tobacco UseTypesPacks/DayYears UsedDateSmoking Tobacco: IsjjbqHypkyrkojx391.9 05/04/1971 - 03/30/2014OtherPassive Smoke Exposure: NeverSmokeless Tobacco: Former Comments:Patient stated- she is currently smoking E-cig daily. Alcohol UseStandard Drinks/WeekCommentsYes0 (1 standard drink = 0.6 oz pure alcohol)1 small cider every 2 weeksSocial Connection and Isolation PanelAnswer Date RecordedFrequency of Communication with Friends and FamilyNot on file 07/11/2024How often do you get together with friends or relatives?More than three times a week07/11/2024ttends Taoism ServicesNot on file07/11/2024 Active Member of Clubs or OrganizationsNot on file07/11/2024ttends Club or Organization MeetingsNot on file07/11/2024Marital StatusNot on file07/11/2024 PHQ-2AnswerDate RecordedPHQ-2 Xclmo368[facility] [place] of Occup[facility] - Occupational Stress QuestionnaireAnswerDate [...] in an abandoned building, in an overnight custodial, or couch-surfing.)Yes09/30/2024re you worried about losing your [...] CommentsNoSex and Gender InformationValueDate RecordedSex Assigned at PqnmlLamplj96/06/2020 7:20 AM CSTLegal KoyCbwpzq55/04/2012 3:20 AM CSTGender DzxuxabtSkmime61/06/2020 7:20 AM CSTSexual IakhglhtuggRhkeemod76/06/2020 7:20 AM CSTdocumented as of this encounter Plan of Treatment DateTypeDepartmentCare Team (Latest Contact Info)Banznuyshoi00/09/2026 10:00 AM CSTVirtual Visit [facility] [address] F[address] [phone] Zeynep Richmond, [address] [address] 05/19/2025 10:00 AM CSTVirtual Visit [facility] [address] F291 [address] [phone] Zeynep Richmond, [address] [phone] 05/22/2025 10:00 AM CSTVirtual Visit [facility] Mental [facility] [place] [id number] [place] [address] [phone] Digna Vega, SENIOR SUPPORT ANALYST SKATES OPERATOR [address] [place] [address] 05/26/2025 10:00 AM CSTVirtual Visit [facility] [place] [id number] [address] [place] [phone] Zeynep Richmond, [address] [address] 06/02/2025 10:00 AM CSTVirtual Visit [facility] [place] [id number] [address] [place] [address] [phone] Zeynep Richmond, HOME SPECIALIST [address] [place] [address] 06/13/2025 1:00 PM CSTOffice Visit [facility] [place] [address] [facility] [address] [place] [address] Reina Gonzalez MD [address] [facility] 200 [place], [place] [phone] Bart De PA-C [address] [facility] [address] [place] [phone] 06/15/2025 9:00 AM CSTAppointment M [facility] [address] [facility] [address] [place] [address] Kei Rodas MD [address] [place] [address] 06/15/2025 10:00 AM CSTAppointment M [facility] [address] [facility] [address] [place] [address] Kei Rodas MD [address] [place] [address] 06/20/2025 11:00 AM CSTOffice Visit M [facility] Vascular [address] [place] [phone] Kei Rodas MD [address] [place] [address] 07/17/2025 11:30 AM CDTVirtual Visit M [address] [phone] Reina Gonzalez MD [address] [place] [address] Fan Mullins, PAJeffC [address] [place] [address] 07/20/2025 11:10 AM CDTOffice Visit M [address] [place] [phone] [place] [address] [place] [address] 200 [place] [address] 08/28/2025 12:00 PM CDTAncillary Procedure [facility] [address] [facility] 1st [place] [phone] Domo Hammonds MD [address] [place] [address] 08/28/2025 1:00 PM CDTOffice Visit [facility] [address] [phone] Domo Hammonds MD [address] [place], [place] [address] 09/04/2025 11:30 AM CDTVirtual Visit [facility] [address] [facility] [address] [place] [phone] Lili Michael MD [address] 200 [place], [place] [address] 09/18/2025 11:40 AM CDTOffice Visit [facility] Heart [facility] [address] [place] [phone] Melissa Townsend NP [address] [facility] 508 [place], [place] [phone] documented as of this encounter Visit Diagnoses Not on filedocumented in this encounter Additional Health Concerns AssessmentNoted TimePHQ-9 Depression Total Score: 131 8:44 AM CDT documented as of this encounter Care Teams Team MemberRelationshipSpecialtyStart DateEnd Date Reina Gonzalez MD [address] [facility] 200 [place] [address] PCP - GeneralFamily Icpzgidr17/15/23 Digna Vega APRN SKATES OPERATOR [address] [place] [address] Nurse PractitionerNurse Practitioner Psych/Mental Health05/30/16 Joseluis Carrillo MD [address] [place] [address] [facility] - Sports Medicine11/13/16 Zeynep Richmond, [facility] [address] [place] [address] Social WorkerSocial Worker - Clinical06/15/20 [place] [address] [place] [address] [phone] Assigned PCP01/18/22 Fan Mullins PA-C [address] [place] [address] Physician AssistantGastroenterology09/25/22 Portia Ventura APRN [facility] [address] [place] [address] Nurse PractitionerCardiology10/22/22 Zeynep Richmond, [facility] [address] [place] [address] Assigned Behavioral Health Provider08/25/23 Denae Gomez DPM, Podiatry/Foot and Ankle Surgery [address] [place] [address] [address] Assigned Musculoskeletal Provider11/24/23 Sky Lynne PA-C [address] [place], [place] [address] Assigned Neuroscience Provider01/25/24 Yudi Manuel PA-C [address] [place], [place] [address] Physician AssistantUrology1/12/26 Domo Hammonds MD [address] [place], [place] 9[address] PulmonologistPulmonary Disease07/18/24 Funmilayo Ferrara, SENIOR SUPPORT ANALYST SKATES OPERATOR [address] [place] [address] [phone] Assigned Surgical Provider09/23/24 Kei Rodas MD [address] [place] [address] [phone] Assigned Heart and Vascular Provider12/24/24 Lili Michael MD [address] [place] [address] [place] [address] HospitalistEndocrinology, Diabetes, and Uvygerrrit24/10/25 Fan Mullins PA-C [address] [place] [address] Physician SannvtrqlXhyyjlnsssaamzuz63/13/25documented as of this encounter
--- OUTSIDE RECORDS SUMMARY | 2025-04-30 22:57 | XMS_ITS | Clinical Summary ---
Author Organization [facility] Address [address] [place] [address] Care Team Providers Care Flow Match Sofa Cutter Name Role Phone Reina Gonzalez MD Primary Care Provider [phone] Allergies Active AllergyReactionsCriticalityNoted DateCommentsOxcarbazepine*Unknown 10/07/2013 HYPONATREMIA HYPONATREMIA HYPONATREMIA Gcyczfs-Kfi-Uqz Reductase Inhibitors*Unknown,*Unknown - Follow up needed 12/17/2011 Other reaction(s): Unknown Other reaction(s): Unknown but tolerates atorvastatin Medications MedicationSigDispense QuantityRefillsLast FilledStart DateEnd DateStatus Treleharjit Ellipta 100-62.5-25 mcg inhaler Indications:Chronic obstructive pulmonary disease, unspecified COPD type (HC) INHALE 1 PUFF BY MOUTH EVERY DAY 60 Each 5Active albuterol HFA 90 mcg/actuation inhaler Inhale 2 Puffs by mouth every 6 hours.Active alendronate 70 mg tablet Take 70 mg by mouth once a week in the morning.5Active Eliquis 5 mg tablet Take 1 Tablet by mouth two times daily.4Active aspirin enteric coated 81 mg tablet Take 81 mg by mouth once daily.11/26/2023ctive atorvastatin 80 mg tablet Take 80 mg by mouth once daily.Active ciprofloxacin 500 mg tablet Take 1 Tablet by mouth two times daily.5Active clonazePAM 1 mg tablet 1 mg two times daily.5Active clopidogreL 75 mg tablet Take 75 mg by mouth once daily.5Active doxylamine 25 mg tablet Take 50 mg by mouth at bedtime.Active Repatha SureClick 140 mg/mL subcutaneous pen injector Inject 1 mL subcutaneous every 2 weeks.Active famotidine 20 mg tablet Take 20 mg by mouth two times daily.Active ferrous sulfate 325 mg (65 mg iron) tablet Take 325 mg by mouth once daily with a meal.Active lisinopriL 2.5 mg tablet Take 2.5 mg by mouth once daily.Active metoprolol succinate 25 mg Sustained-Release tablet Take 25 mg by mouth once daily.5Active mirtazapine 30 mg tablet Take 30 mg by mouth at bedtime.Active omeprazole 40 mg Delayed-Release capsule Take 40 mg by mouth once daily before a meal.4Active QUEtiapine 50 mg tablet Take 50 mg by mouth once daily.Active solifenacin 10 mg tablet Take 10 mg by mouth once daily.5Active ziprasidone 40 mg capsule Take 40 mg by mouth once daily with a meal.Active ziprasidone 60 mg capsule Take 60 mg by mouth at bedtime.Active ondansetron 4 mg disintegrating tablet Indications:NauseaPlace 1 Tablet (4 mg) on the tongue every 8 hours if needed for Nausea/Vomiting. 30 Tablet 5Active Active Problems ProblemNoted DateDiagnosed DateHeart burn07/18/2024ge related osteoporosis 03/03/2023Former fphpsa6002/20/2023oronary artery bqwbrzf9410/20/2022ulmonary hxgnkelvv65/06/2022KD (chronic kidney disease) stage 3, GFR 30-59 ml/min 02/18/2019Ischemic cgfvaynajsdgsj51/23/2019Status post three vessel coronary artery whvvma1607/02/2011Old myocardial ypiqaupanq55/28/2009 Overview (11/05/2024): LW Modifier: anterior wall LW Onset: 2008 ; OK Old Social History Tobacco UseTypesPacks/DayYears UsedDateSmoking Tobacco: Never Assessed CommentsNoSex and Gender InformationValueDate RecordedSex Assigned at BirthNot on fileLegal TxoQzalcg61/12/2024 4:33 AM CDTGender IdentityNot on fileSexual OrientationNot on file Last Filed Vital Signs Vital SignReadingTime TakenCommentsBlood Zgsufcxk137/7107 4:33 PM CDT Rlxeh220811/05/2024 4:33 PM TJOVzyxafziqxh05.9 ??C (96.7 ??F)11/05/2024 4:33 PM CDTRespiratory Ywsp3015 4:33 PM CDTOxygen Dawwrckasp56%11/05/2024 4:33 PM CDTInhaled Oxygen Concentration--Agsipi70.7 kg (184 lb 9.6 oz)11/05/2024 4:35 PM CDTHeight--Body Mass Index-- Plan of Treatment Health MaintenanceDue DateLast DoneCommentsTetanus qcgtsgi0412/31/1970Depression screening for age 12+1972HIV for age 15-BMI (ht and wt on same day) for age 18+12/31/1977Hepatitis C screening for age 18- Pneumococcal series for age 50+ (1 of 2 - PCV)12/31/1978Pap test for age 21-65 12/31/1980Mammogram for age 40-Colonoscopy through age Lipids for age 45-RSV vaccine for adults or (1 - Risk 50- 74 years 1-dose series)12/31/2009Zoster (shingles) series for age 50+ (1 of 2) 12/31/2009DEXA/DXA scan for age 65+12/31/2024OVID-19 vaccine series (2024- season), 11/03/2023, 03/18/2023, Additional history existsInfluenza Vaccine (#1)01/02/2025Hepatitis B series for 19+Aged OutNo longer eligible based on patient's age to complete this topic Insurance Care Teams Team MemberRelationshipSpecialtyStart DateEnd Date Reina Gonzalez MD [facility]
--- OUTSIDE RECORDS SUMMARY | 2025-04-30 22:57 | XMS_ITS | Encounter Summary ---
Author Organization [facility] Address [address] [place] [address] Care Team Providers Care State Manager Name Role Phone Digna Vega NINA INSURANCE SALES SUPERVISOR Unavailable Joseluis Carrillo MD Unavailable Zeynep Richmond BILLING DEPARTMENT SUPERVISOR Unavailable Reina Gonzalez MD Unavailable Fan MullinsC Unavailable [phone] Portia Ventura BUFFING AND SUEDING MACHINE OPERATOR INSURANCE SALES SUPERVISOR Unavailable Reina Gonzalez MD Primary Care Provider Zeynep Richmond BILLING DEPARTMENT SUPERVISOR Unavailable Denae Gomez DPM, Podiatry /Foot and Ankle Surgery Unavailable Sky Lynne PA-C Unavailable [phone] Yudi Manuel PA-C Unavailable Domo Hammonds MD Unavailable Funmilayo Ferrara APRN INSURANCE SALES SUPERVISOR Unavailable Kei Rodas MD Unavailable Lili Michael MD Unavailable Fan Mullins PA-C Unavailable [phone] Domo Hammonds MD Unavailable Encounter Details DateTypeDepartmentCare Team (Latest Contact Info)Stnidtemimy18/21/2025[facility] Medical Advice [facility] Mental Health & Addiction [place] [phone] [address] [place] [phone] Alisson Jarquin Social History Tobacco UseTypesPacks/DayYears UsedDateSmoking Tobacco: BmpdtmXscaylbzss796.9 05/04/1971 - 03/30/2014OtherPassive Smoke Exposure: NeverSmokeless Tobacco: Former Comments:Patient stated- she is currently smoking E-cig daily. Alcohol UseStandard Drinks/WeekCommentsYes0 (1 standard drink = 0.6 oz pure alcohol)1 small cider every 2 weeksSocial Connection and Isolation PanelAnswer Date RecordedFrequency of Communication with Friends and FamilyNot on file 07/11/2024How often do you get together with friends or relatives?More than three times a week07/11/2024ttends Rastafarian ServicesNot on file07/11/2024 Active Member of Clubs or OrganizationsNot on file07/11/2024ttends Club or Organization MeetingsNot on file07/11/2024Marital StatusNot on file07/11/2024 PHQ-2AnswerDate RecordedPHQ-2 Deyrz927[facility] [place] of Occupational Health - Occupational Stress QuestionnaireAnswerDate [...] CommentsNoSex and Gender InformationValueDate RecordedSex Assigned at YqairBsjvrj30/06/2020 7:20 AM CSTLegal DyoSrrmqd91/04/2012 3:20 AM CSTGender PwyjgwejXmrxlz83/06/2020 7:20 AM CSTSexual FwfnjxpqpboZkjvbufl63/06/2020 7:20 AM CSTdocumented as of this encounter Plan of Treatment DateTypeDepartmentCare Team (Latest Contact Info)Rarlucdkkoj21/09/2026 10:00 AM CSTVirtual Visit [facility] Addiction [place] [phone] [address] Zeynep Richmond, [address] [address] 05/19/2025 10:00 AM CSTVirtual Visit [facility] & Addiction [address] F275 [facility] [address] [phone] Zeynep Richmond, [address] 919124 05/22/2025 10:00 AM CSTVirtual Visit [facility] & Addiction [address] F275 [facility] [address] [phone] Digna Vega, BUFFING AND SUEDING MACHINE OPERATOR [address] 229954 05/26/2025 10:00 AM CSTVirtual Visit [facility] & Addiction [address] F275 [facility] [address] [phone] Zeynep Richmond, [address] [address] 06/02/2025 10:00 AM CSTVirtual Visit [facility] & Addiction [address] [place] F275 [facility] [address] [phone] Zeynep Richmond, [address] 608424 06/13/2025 1:00 PM CSTOffice Visit [facility] [address] 103 [place] [address] Reina Gonzalez MD 2270 [facility] 200 [place] [address] Bart De PA-C 8663 [facility] 103 [place] [address] 06/15/2025 9:[address] Imaging [address] [facility] 160 [place] [phone] Kei Rodas MD [address] [place] [address] 06/15/2025 10:[address] Imaging [address] [facility] 160 [place] [phone] Kei Rodas MD [address] [place] [address] 052525 06/20/2025 11:00 AM CSTOffice Visit [facility] Vascular [address] 3rd [place] [phone] Kei Roads MD [address] [place] [address] 07/17/2025 11:30 AM CDTVirtual Visit M [facility] [address] [place] [address] [place] [phone] Reina Gonzalez MD 2270 [facility] 200 [place] [address] Fan Mullins PA-C [phone] [place] [address] 07/20/2025 11:10 AM CDTOffice Visit M [address] 200 [place] [phone] Reina Gonzalez MD 2270 [facility] [place] 200 [place] [address] 08/28/2025 12:00 PM CDTAncillary Procedure [facility] [address] 1st [place] [phone] Domo Hammonds MD 500 [place] [address] 08/28/2025 1:00 PM CDTOffice Visit [facility] for Lung Science and Health [address] [phone] Domo Hammonds MD 500 [place], [place] 402965 09/04/2025 11:30 AM CDTVirtual Visit [facility] [address] [place] [address] [place] [phone] Lili Michael MD [address] 200 [place], [place] 138750 09/18/2025 11:40 AM CDTOffice Visit [facility] Heart [address] [phone] Melissa Townsend NP 420 [facility] 508 [place], [place] 756435 documented as of this encounter Visit Diagnoses Not on filedocumented in this encounter Additional Health Concerns AssessmentNoted TimePHQ-9 Depression Total Score: 8:44 AM CDT documented as of this encounter Care Teams Team MemberRelationshipSpecialtyStart DateEnd Date Reina Gonzalez MD [address] [address] PCP - GeneralFamily Dujvshba66/15/23 Digna Vega APRN INSURANCE SALES SUPERVISOR [address] [place] [address] Nurse PractitionerNurse Practitioner Psych/Mental Health05/30/16 Joseluis Carrillo MD [address] [place] [address] MDFamily Medicine - Sports Medicine11/13/16 Zeynep Richmond, [facility] [address] [place] [address] 347524 Social WorkerSocial Worker - Clinical06/15/20 [place] [address] [place] [address] Assigned PCP01/18/22 Fan Mullins PA-C [address] [place] [address] Physician AssistantGastroenterology09/25/22 Portia Ventura APRN INSURANCE SALES SUPERVISOR [address] [place] [address] Nurse PractitionerCardiology10/22/22 Zeynep Richmond, [facility] [address] [place] [address] Assigned Behavioral Health Provider08/25/23 Denae Gomez, DPM, Podiatry/Foot and Ankle Surgery [address] [place], [place] 120907 Assigned Musculoskeletal Provider11/24/23 Sky Lynne PA-C [address] [place] [address] [place], [place] 895715 Assigned Neuroscience Provider01/25/24 Yudi Manuel PA-C [address] [place] [address] Physician AssistantUrology1 Domo Hammonds MD 500 [place], [place] 471775 PulmonologistPulmonary Disease07/18/24 Funmilayo Ferrara, BUFFING AND SUEDING MACHINE OPERATOR INSURANCE SALES SUPERVISOR [address] [place] [address] Assigned Surgical Provider09/23/24 Kei Rodas MD [address] [place] [address] Assigned Heart and Vascular Provider12/24/24 Lili Michael MD [address] [place] 200 [place] [address] HospitalistEndocrinology, Diabetes, and Rdtnhxvpmd23/10/25 Fan Mullins PA-C [address] [place] [address] Physician WnspyrciaSbevsadggsakrpyh50/13/25 Domo Hammonds MD 500 [place] [address] Assigned Pulmonology Glecilnq34/23/25documented as of this encounter
--- OUTSIDE RECORDS SUMMARY | 2025-04-30 22:57 | XMS_ITS | Encounter Summary ---
Author Organization [facility] Address [address] [place] [address] Care Team Providers Care Food Court Team Member Name Role Phone Digna Vega NINA INCOME AUDITOR Unavailable Joseluis Carrillo MD Unavailable Zeynep [place] PERSONAL LINES ADVISOR Unavailable Reina Gonzalez MD Unavailable Fan MullinsC Unavailable [phone] Portia Ventura ACUTE CARE CLINICAL NURSE SPECIALIST INCOME AUDITOR Unavailable Reina Gonzalez MD Primary Care Provider Zeynep [place] PERSONAL LINES ADVISOR Unavailable Denae Gomez DPM, Podiatry /Foot and Ankle Surgery Unavailable Sky Lynne PA-C Unavailable [phone] Yudi Manuel PA-C Unavailable Domo Hammonds MD Unavailable Funmilayo Ferrara APRN INCOME AUDITOR Unavailable Kei Rodas MD Unavailable Lili Michael MD Unavailable Fan Mullins PA-C Unavailable [phone] Encounter Details DateTypeDepartmentCare Team (Latest Contact Info)Vkzxklmicyo85/21/2025Telephone [facility] Addiction [address] F[address] [phone] Celi Richmondricia Chitra, [facility] 2450 [place] [address] Social History Tobacco UseTypesPacks/DayYears UsedDateSmoking Tobacco: ZwhbgzXlknmzdedx182.9 [birth year]/04/1971 - 03/30/2014OtherPassive Smoke Exposure: NeverSmokeless Tobacco: Former Comments:Patient stated- she is currently smoking E-cig daily. Alcohol UseStandard Drinks/WeekCommentsYes0 (1 standard drink = 0.6 oz pure alcohol)1 small cider every 2 weeksSocial Connection and Isolation PanelAnswer Date RecordedFrequency of Communication with Friends and FamilyNot on file 07/11/2024How often do you get together with friends or relatives?More than three times a week07/11/2024ttends Alevism ServicesNot on file07/11/2024 Active Member of Clubs or OrganizationsNot on file07/11/2024ttends Club or Organization MeetingsNot on file07/11/2024Marital StatusNot on file07/11/2024 PHQ-2AnswerDate RecordedPHQ-2 Eivwx962Finbear river [facility] hospital [place] of Occupational Health - Occupational Stress QuestionnaireAnswerDate [...] CommentsNoSex and Gender InformationValueDate RecordedSex Assigned at NsgrzPqwehh89/06/2020 7:20 AM CSTLegal UmfNhppqr36/04/2012 3:20 AM CSTGender VcqzrefeNkasbt35/06/2020 7:20 AM CSTSexual OpxjkekcadrKveaoihs90/06/2020 7:20 AM CSTdocumented as of this encounter Miscellaneous Notes * Telephone Encounter - Zeynep Richmond, [facility] - 03/24/2025 10:30 AM CST Reina scheduled for therapy session today. She was on video for approximately 5 minutes, but requested to end session due to feeling nauseous and unable to focus due to feeling unwell. She reports on-going anxiety. Briefly discussed strategies to manage. She is listening to the updated Adrian Potkat book series with different character narrations and notes this helps her distract from anxious thoughts. Next therapy session in 2 weeks due to hol. She is aware she can contact therapistif she needs support prior to therapy session. KADY Kumar, [facility] [phone] ER SPEC documented in this encounter Plan of Treatment DateTypeDepartmentCare Team (Latest Contact Info)Solocdzptkw21/09/2026 10:00 AM CSTVirtual Visit [facility] & Addiction [address] [place] F275 [facility] [address] [phone] Zeynep Richmond, [address] [address] 05/19/2025 10:00 AM CSTVirtual Visit [facility] & Addiction [address] [place] F275 [facility] [address] [phone] Zeynep Richmond, [address] [address] 05/22/2025 10:00 AM CSTVirtual Visit [facility] Addiction [address] [place] F275 [facility] [address] [phone] Digna Vega, NINA [address] 719704 05/26/2025 10:00 AM CSTVirtual Visit [facility] & Addiction [address] [place] F[address] [phone] Zeynep [place], [place] [address] [place] [address] 06/02/2025 10:00 AM CSTVirtual Visit [facility] Addiction [place] [phone] [phone] Zeynep Richmond, [place] 701590 [place] [address] 06/13/2025 1:00 PM CSTOffice Visit [facility] [place] 6363 [facility] 103 [place] [phone] Reina Gonzalez MD 2270 [facility] 200 [place], [place] [phone] Bart De PA-C 6390 [facility] 103 [place] [address] 06/15/2025 9:00 AM CSTAppointment [facility] Imaging [address] [facility] 160 [place] [phone] Kei Rodas MD [address] [place] [address] 06/15/2025 10:00 AM CSTAppointment [facility] Imaging [address] [facility] 160 [place] [phone] Kei Rodas MD [address] [place] [address] 06/20/2025 11:00 AM CSTOffice Visit [facility] [address] 3rd [place] [phone] Kei Rodas MD [address] [place] [address] 07/17/2025 11:30 AM CDTVirtual Visit [facility] [address] [place] [phone] Reina Gonzalez MD 2270 [facility] [address] 200 [place] [address] Fan Mullins PAJeffC [address] [place] [address] 07/20/2025 11:10 AM CDTOffice Visit [address] [place] [phone] Reina Gonzalez MD [address] [place] [address] 200 [place] [address] 08/28/2025 12:00 PM CDTAncillary Procedure [facility] [place] [address] 1st [place] [phone] Domo Hammonds MD [address] [place] [address] 08/28/2025 1:00 PM CDTOffice Visit [facility] for [facility] Science and Health [address] [phone] Domo Hammonds MD [address] [place] [address] 09/04/2025 11:30 AM CDTVirtual Visit [place] [address] [place] [address] Lili Michael MD [address] [place] 200 [place], [place] 4[address]70 09/18/2025 11:40 AM CDTOffice Visit [facility] [place] 909 [facility] [place] [phone] Melissa Townsend NP 420 [facility] 508 [place], [place] 163155 documented as of this encounter Visit Diagnoses Not on filedocumented in this encounter Additional Health Concerns AssessmentNoted TimePQ-9 Depression Total Score: 131 8:44 AM CDT documented as of this encounter Care Teams Team MemberRelationshipSpecialtyStart DateEnd Reina Gonzalez MD [address] [place] [address] PCP - GeneralFamily Bxwphnqx54/15/23 Digna Vega APRN INCOME AUDITOR [address] [place] [address] Nurse PractitionerNurse Practitioner Psych/Mental Health05/30/16 Joseluis Carrillo MD [address] [place] [address] Family Medicine - Sports Medicine11/13/16 Zeynep Richmond [facility] [address] [place] [address] 256104 Social WorkerSocial Worker - Clinical06/15/20 Reina Gonzalez MD [address] [place] [address] Assigned PCP01/18/22 Fan Mullins PA-C [address] [place], [place] [address] [address] Physician AssistantGastroenterology09/25/22 Portia Ventura APRN INCOME AUDITOR [address] [place] [address] Nurse PractitionerCardiology10/22/22 Zeynep Richmond, [facility] 2450 [place] [address] Assigned Behavioral Health Provider08/25/23 Denae Gomez DPM, Podiatry/Foot and Ankle Surgery 98[address] [facility] 300 [place] [address] Assigned Musculoskeletal Provider11/24/23 Sky Lynne PA-C 6545 [facility] 450 [place] [address] Assigned Neuroscience Provider01/25/24 Yudi Manuel PA-C [address] [facility] 377 [place], [place] 238077 Physician AssistantUrology1 Domo Hammonds MD [address] [place] [address] PulmonologistPulmonary Disease07/18/24 Funmilayo Ferrara APRN INCOME AUDITOR 909 [place], [place] 249115 Assigned Surgical Provider09/23/24 Kei Rodas MD 9 [place], [place] 204685 Assigned Heart and Vascular Provider12/24/24 Lili Michael MD [address] [facility] [address] 200 [place] [address] HospitalistEndocrinology, Diabetes, and Pywfdkqvqu25/10/25 Fan Mullins, PAJeffC [address] [place] [address] Physician JepapyafyTutlnznfpqpthtzz22/13/25documented as of this encounter
[2025-04-30 23:00] VITALS: O2SAT 88
[2025-04-30 23:15] VITALS: BP 110/56; PULSE 68; RESP 21; TEMP 36.1; O2SAT 88; BMI 29.5
[2025-04-30 23:58] LABS: Hematocrit* 38.7 % (33.0-51.0); Hemoglobin* 11.8 gm/dL (12.0-16.0); Immature Granulocytes Abs Auto 0.03 K/uL (0.00-0.30); Immature Granulocytes Pct Auto 0.3 %; Mean Corpuscular HGB Conc 31 gm/dL (32-36); Mean Corpuscular Hemoglobin 30 pg (26-34); Mean Corpuscular Volume 98 fL (80-100); RDW Coefficient of Variation % 14.1 % (11.5-15.5); Red Blood Count* 3.94 m/uL (4.00-5.20); White Blood Count* 8.92 K/uL (4.50-11.00)
[2025-04-30 23:59] LABS: Lymphocytes Absolute Auto 1.70 K/uL (0.90-2.90); Slide Review Reflex No
[2025-05-01 00:11] LABS: Albumin* 3.8 g/dL (3.3-5.0); Chloride* 105 mmol/L (96-114)
[2025-05-01 00:12] LABS: Potassium* 4.5 mmol/L (3.6-5.1); Sodium* 138 mmol/L (135-149)
[2025-05-01 00:14] LABS: Alanine Aminotransferase* 22 U/L (4-35); Alkaline Phosphatase* 103 U/L (40-150); Anion Gap 5 mEq/L (7-15); Aspartate Amino Transferase* 26 U/L (12-35); Bilirubin Direct* 0.2 mg/dL (0.0-0.5); Bilirubin Total* 0.2 mg/dL (0.1-1.5); Blood Urea Nitrogen* 25 mg/dL (7-30); Calcium* 9.0 mg/dL (8.4-10.6); Carbon Dioxide* 28 mmol/L (20-32); Creatinine* 1.5 mg/dL (0.5-1.5); Est. Creatinine Clearance* 35.00; Estimated Glomerular Filt Rate 38 ml/min; Glucose* 109 mg/dL (60-115); Total Protein* 6.3 g/dL (6.0-8.3)
[2025-05-01 00:16] LABS: D Dimer Quantitative* 0.30 ug/ml (0.00-0.50)
[2025-05-01 00:24] LABS: NT Pro B Type NatriureticPept* 212 pg/mL (See Note)
[2025-05-01 00:45] VITALS: BP 99/56; PULSE 58; RESP 19; O2SAT 95
[2025-05-01 00:57] VITALS: BP 99/56; PULSE 61; RESP 20; O2SAT 93
[2025-05-01 01:01] VITALS: BP 103/56; PULSE 58; RESP 17; TEMP 36.7; O2SAT 90
[2025-05-01] MEDS: IPRAT-ALBUT 0.5-2.5 MG/3 ML NEB 1 NEB IH (01:06)
[2025-05-01 01:13] VITALS: O2SAT 93
[2025-05-01 01:32] VITALS: BP 89/54; PULSE 65; RESP 12; O2SAT 89
== END 2025-05-01 02:33 | disposition home or self-care (01) ==
PROVIDERS: Emergency Provider Family Medicine
DX: R07.89 Other chest pain (principal)
CPT/HCPCS: 36415; 80048; 80076; 83690; 83735; 83880; 84484; 85025; 85379; 93005; 94761; 99284; 99285